=== PATIENT | male | born 1930 | race Hispanic/Latino ===

== ENCOUNTER 2018-03-17 17:16 | Inpatient (IN) | payer MEDICARE ==
--- NOTE | 2018-03-17 17:23 | C.PDOC ---
History Of Present Illness Patient [place] for evaluation of possible stroke. As per EMS, he was found with gaze deivated to right, left facial droop and left sided hemiparesis. As per EMS, last known normal was approx 8am today, when he took his grandkids to school. Time Seen by Provider: 03/17/18 17:20 History Per: EMS History/Exam Limitations: clinical condition Recent Seizure Activity Began: Hours Ago: (8am) Past Medical History Reviewed: Historical Data, Nursing Documentation, Vital Signs - Medical History PMH: Benign Prostatic Hyperplasia Other PMH: on Xarelto for "peripheral vascular disease" as per son, ? DVT Family History: States: Other Other Family History: noncontributory Review Of Systems Review Of Systems: ROS cannot be obtained secondary to pt's inabilty to answer questions. Physical Exam - Physical Exam Skin: Warm, Dry Head: Atraumatic, Normacephalic Oral Mucosa: Moist Cardiovascular: Rhythm Regular Respiratory: Normal Breath Sounds, No Rales, No Rhonchi, No Wheezing Gastrointestinal/Abdominal: Normal Exam, Bowel Sounds, Soft, No Tenderness Neurological/Psych: No Normal Speech (nonverbal), Normal Cranial Nerves (gaze deiavted to left, left sided facial droop), No Normal Motor (hemiparesis of LUE, LLE), No Normal Reflexes ((+) Babinski LLE) ED Course And Treatment - Laboratory Results Result Diagrams: 03/17/18 17:40 03/17/18 17:40 ECG: Interpreted By Me, Viewed By Me (sinus rhythm 76 bpm, left axis deviation, Q waves II, III, aVF, no acute ST changes) ECG Interpretation: Abnormal O2 Sat by Pulse Oximetry: 96 (RA) Pulse Ox Interpretation: Normal - Other Rad CTA HEAD X-Ray: Read By Radiologist Interpretation: Dictator : Russell Hogan MD. Inspector Raw Quartz : Networker : Russell Hogan MD. Approver2 : Report Date : 03/17/2018 17:36:15. My Comment : * . Date of service: 2018-03-17 17:27:26. PROCEDURE: CT Angiography of the neck and brain with contrast. HISTORY: CVA. COMPARISON: Comparison made with concurrent CT brain. TECHNIQUE: Contiguous axial images of the neck and brain were obtained from the level of the vertex of the skull to the superior mediasti num in the arteriographic phase of enhancement. Coronal and sagittal reformats or also generated. IV contrast dose: 100 cc Visipaque 320 contrast material. Radiation dose: Total exam DLP = 580.52 mGy-cm. This CT exam was performed using one or more of the following dose reduction techniques: Automated exposure control, adjustment of the mA and/or kV according to patient size, and/or use of iterative reconstruction technique. FINDINGS: The aortic arch is widely patent despite some minimal scattered partially calcified atherosclerotic plaque changes seen along the transverse portion of the aortic arch.. Some very minimal calcified plaque also seen along the origin of the left subclavian and right subclavian artery at its bifurcation into the right common carotid and right subclavian artery. There is a tiny calcified plaque in the mid left common carotid artery with mild calcified plaque at the level of the left carotid bifurcation however no no occlusion or significant narrowing. No evidence of dissection. The right common carotid artery is also widely patent as is carotid bifurcation despite small plaque changes at the level of the right carotid bifurcation. The distal internal carotid arteries including the petrous cavernous and supraclinoid segments widely patent. There is an abrupt cut off the distal aspect of the right M1 segment and distal branches consistent with thrombus in this vessel. The vertebral arteries are also widely patent throughout and are minimally asymmetric left-sided which is slightly larger in caliber/more dominant than the right. Basilar artery patent. The visualized major branches of the [id number] are otherwise intact not withstanding the right MCA thrombus. The distal of branches of the anterior and posterior cerebral arteries appear relatively symmetric. No definitive evidence of large aneurysm nor vascular malformation. OTHER FINDINGS: Enlarged heterogeneous right lobe thyroid gland with multiple small on varying sized hypodense nodules. There also appear to be 1 or 2 small nodules left lobe thyroid gland. Follow- up thyroid ultrasound recommended. IMPRESSION: There is abrupt cut off enhancement within the mid to distal right mid middle cerebral artery with no significant enhancement of distal branch vessels consistent with thrombus in this vessel. These findings were discussed with Dr. Lyon at approximately 5:45 p.m. with written down and read back verification. Enlarged heterogeneous right lobe thyroid gland with multiple small on varying sized hypodense nodules. There also appear to be 1 or 2 small nodules left lobe thyroid gland. Follow- up thyroid ultrasound recommended. - CT Scan/US ct head Other Rad Studies (CT/US): Read By Radiologist, Radiology Report Reviewed CT/US Interpretation: Accession No. : [id number]. Patient Name / ID : KING CANAS / [id number]. Exam Date : 03/17/2018 17:25:09 ( Approved ). Study Comment : Sex / Age : M / 87Y. Creator : Blank Romero. Dictator : Russell Hogan MD. Inspector Raw Quartz : Networker : Russell Hogan MD. Approver2 : Report Date : 03/17/2018 17:28:16. My Comment : . Date of service: 03/17/2018. PROCEDURE: CT HEAD WITHOUT CONTRAST. HISTORY: Code Stroke. COMPARISON: None available. TECHNIQUE: Axial computed tomography images were obtained through the head/brain without intravenous contrast. Radiation dose: Total exam DLP = 1133.64 mGy-cm. This CT exam was performed using one or more of the following dose reduction techniques: Automated exposure control, adjustment of the mA and/or kV according to patient size, and/or use of iterative reconstruction technique. FINDINGS: HEMORRHAGE: No intracranial hemorrhage. BRAIN: Apparent right-sided hyperdense MCA sign consistent with thrombus in the right middle cerebral artery. Significant diffuse/confluent chronic appearing low-attenuation changes seen extending from the periventricular into the deep and subcortical white matter both cerebral hemispheres. Findings may represent chronic sequela of small vessel disease. There also appears to be some extension of these changes into the white matter tracts of both basal nuclei. Note that the possibility of a small hyperacute infarct cannot be excluded on this study. Fairly significant central volume loss evidenced by disproportionate enlargement of the ventricles compared sulci.. No obvious parenchymal nor extra-axial masses or collections seen on this noncontrast exam. Vascular calcifications both carotid siphons. VENTRICLES: No obstructive hydrocephalus. CALVARIUM: There are no acute calvarial fractures. PARANASAL SINUSES: Unremarkable as visualized. No significant inflammatory changes. MASTOID AIR CELLS: Unremarkable as visualized. No inflammatory changes. OTHER FINDINGS: None. IMPRESSION: There is an apparent hyperdense right-sided MCA sign consistent with thrombus in the right middle cerebral artery. Significant diffuse/confluent chronic appearing low-attenuation changes seen extending from the periventricular into the deep and subcortical white matter both cerebral hemispheres. Findings may represent chronic sequela of small vessel disease. There also appears to be some extension of these changes into the white matter tracts of both basal nuclei. Note that the possibility of a small hyperacute infarct cannot be excluded on this study. Fairly significant central volume loss evidenced by disproportionate enlargement of the ventricles compared sulci.. These findings discussed with Dr. Lyon at approximately 5:35 p.m. with written down and read back verification. Progress Note: Code Stroke called. 5:40pm- Spoke with Dr. Henley, she will discuss with interventional neuro. Patient's son is at bedside now, states patient was at his baseline this morning at 8am, and then he called and spoke to him sometime between 11-12pm, and patient seemed fine. When he arrived home after 4pm, found his father not speaking and with left sided paralysis. Last known well 11am-12pm. 5:50pm- Spoke with Dr. Jolley, he is on his way for intervention. - Physician Consult Information Physician Contacted: Wild Aponte Outcome Of Conversation: Discussed patient with medicine payroll consultant, agrees with admission for acute CVA. Patient being taken to [facility] cath lab for neuro intervention. Critical Care Time - Critical Care Note Total Time (in mins): 60 Documented critical care: time excludes all time spent performing seperately billable procedures. NIHSS Stroke Scale - Date/Time Evaluation Performed Date Performed: 03/17/18 Time Performed: 17:20 When Was NIHSS Performed: Baseline - How Severe is the Stoke Level of Consciousness: 0=Alert LOC to Questions: 2=Neither correct LOC to commands: 2=Neither correct Best Gaze: 2=Forced deviation Visual: 0=No visual loss Facial: 2=Partial (lower face paralysis) Motor Arm - Left: 4=No movement Motor Arm - Right: 0=No drift Motor Leg - Left: 4=No movement Motor Leg - Right: 0=No drift Limb Ataxia: 0=Absent Sensory: 0=Normal Best Language: 3=Mute Dysarthia: 0=Normal articulation Extinction & Inattention (Neglect): 1=Partial neglect (mild charlette-attention) Score: 20 rTPA Inclusion/Exclusion - Refusal of Treatment Patient Refused Treatment: No - Inclusion Criteria for Altepase Patient is 18 years or Older: Yes The Clinical Diagnosis of Ischemic Stroke That is Causing a Potentially Disabling Neurological Deficit: Yes Time of Onset is Well Established to be Less Than 270 Minute Before Treatment Would Begin: No Risk/Benefit Discussed With Patient/Family Member Present: No Disposition - Disposition Disposition: HOSPITALIZED
--- NOTE | 2018-03-17 17:41 | CT ---
Date of service: 03/17/2018 PROCEDURE: CT HEAD WITHOUT CONTRAST. HISTORY: Code Stroke COMPARISON: None available. TECHNIQUE: Axial computed tomography images were obtained through the head/brain without intravenous contrast. Radiation dose: Total exam DLP = 1133.64 mGy-cm. This CT exam was performed using one or more of the following dose reduction techniques: Automated exposure control, adjustment of the mA and/or kV according to patient size, and/or use of iterative reconstruction technique. FINDINGS: HEMORRHAGE: No intracranial hemorrhage. BRAIN: Apparent right-sided hyperdense MCA sign consistent with thrombus in the right middle cerebral artery. Significant diffuse/confluent chronic appearing low-attenuation changes seen extending from the periventricular into the deep and subcortical white matter both cerebral hemispheres. Findings may represent chronic sequela of small vessel disease. There also appears to be some extension of these changes into the white matter tracts of both basal nuclei. Note that the possibility of a small hyperacute infarct cannot be excluded on this study. Fairly significant central volume loss evidenced by disproportionate enlargement of the ventricles compared sulci.. No obvious parenchymal nor extra-axial masses or collections seen on this noncontrast exam. Vascular calcifications both carotid siphons VENTRICLES: No obstructive hydrocephalus. CALVARIUM: There are no acute calvarial fractures. PARANASAL SINUSES: Unremarkable as visualized. No significant inflammatory changes. MASTOID AIR CELLS: Unremarkable as visualized. No inflammatory changes. OTHER FINDINGS: None. IMPRESSION: There is an apparent hyperdense right-sided MCA sign consistent with thrombus in the right middle cerebral artery. Significant diffuse/confluent chronic appearing low-attenuation changes seen extending from the periventricular into the deep and subcortical white matter both cerebral hemispheres. Findings may represent chronic sequela of small vessel disease. There also appears to be some extension of these changes into the white matter tracts of both basal nuclei. Note that the possibility of a small hyperacute infarct cannot be excluded on this study. Fairly significant central volume loss evidenced by disproportionate enlargement of the ventricles compared sulci.. These findings discussed with Dr. Lyon at approximately 5:35 p.m. with written down and read back verification.
[2018-03-17 17:45] LABS: BASO % 0.5 % (0.0-2.0); EOS % 0.7 % (0.0-4.0); HEMOGLOBIN 13.1 g/dL (12.0-18.0); LYMPH % 43.7 % (20.0-40.0); MEAN CELL VOLUME 94.7 fL (80.0-94.0); MEAN CORPUSCULAR HGB CONC 32.8 g/dL (33.0-37.0); MONO # 0.5 K/uL (0.0-0.8); MONO % 7.2 % (0.0-10.0); NEUT # 3.3 K/uL (1.8-7.0); NEUT % 47.9 % (50.0-75.0); RBC 4.23 Mil/uL (4.40-5.90); RED CELL DISTRIBUTION WIDTH 15.1 % (11.5-14.5); WHITE BLOOD COUNT 6.9 K/uL (4.8-10.8)
[2018-03-17 17:57] LABS: INR 1.3; PROTHROMBIN TIME 14.2 SECONDS (9.7-12.2)
[2018-03-17 18:02] LABS: ALB/GLOB RATIO 1.4 (1.0-2.1); ALBUMIN 3.9 g/dL (3.5-5.0); ALT/SGPT 23 U/L (21-72); AST/SGOT 25 U/L (17-59); BLOOD UREA NITROGEN 29 mg/dL (9-20); CALCIUM 9.3 mg/dl (8.6-10.4); GFR NON-AFRICAN AMERICAN > 60; HDL CHOLESTEROL 78 mg/dL (30-70)
--- NOTE | 2018-03-17 18:03 | CT ---
Date of service: 2018-03-17 17:27:26 PROCEDURE: CT Angiography of the neck and brain with contrast HISTORY: CVA COMPARISON: Comparison made with concurrent CT brain TECHNIQUE: Contiguous axial images of the neck and brain were obtained from the level of the vertex of the skull to the superior mediastinum in the arteriographic phase of enhancement. Coronal and sagittal reformats or also generated. IV contrast dose: 100 cc Visipaque 320 contrast material. Radiation dose: Total exam DLP = 580.52 mGy-cm. This CT exam was performed using one or more of the following dose reduction techniques: Automated exposure control, adjustment of the mA and/or kV according to patient size, and/or use of iterative reconstruction technique. FINDINGS: The aortic arch is widely patent despite some minimal scattered partially calcified atherosclerotic plaque changes seen along the transverse portion of the aortic arch.. Some very minimal calcified plaque also seen along the origin of the left subclavian and right subclavian artery at its bifurcation into the right common carotid and right subclavian artery. There is a tiny calcified plaque in the mid left common carotid artery with mild calcified plaque at the level of the left carotid bifurcation however no no occlusion or significant narrowing. No evidence of dissection. The right common carotid artery is also widely patent as is carotid bifurcation despite small plaque changes at the level of the right carotid bifurcation. The distal internal carotid arteries including the petrous cavernous and supraclinoid segments widely patent. There is an abrupt cut off the distal aspect of the right M1 segment and distal branches consistent with thrombus in this vessel. The vertebral arteries are also widely patent throughout and are minimally asymmetric left-sided which is slightly larger in caliber/more dominant than the right. Basilar artery patent. The visualized major branches of the [id number] are otherwise intact not withstanding the right MCA thrombus. The distal of branches of the anterior and posterior cerebral arteries appear relatively symmetric. No definitive evidence of large aneurysm nor vascular malformation. OTHER FINDINGS: Enlarged heterogeneous right lobe thyroid gland with multiple small on varying sized hypodense nodules. There also appear to be 1 or 2 small nodules left lobe thyroid gland. Follow-up thyroid ultrasound recommended. IMPRESSION: There is abrupt cut off enhancement within the mid to distal right mid middle cerebral artery with no significant enhancement of distal branch vessels consistent with thrombus in this vessel. These findings were discussed with Dr. Lyon at approximately 5:45 p.m. with written down and read back verification. Enlarged heterogeneous right lobe thyroid gland with multiple small on varying sized hypodense nodules. There also appear to be 1 or 2 small nodules left lobe thyroid gland. Follow-up thyroid ultrasound recommended.
[2018-03-17] MEDS: Sodium Chloride 0.9% 1,000 ML IV SCH (18:08)
[2018-03-17 18:14] LABS: LDL CHOLESTEROL 88 mg/dL (0-129)
[2018-03-17] MEDS ORDERED: Iodixanol 320 MG/ML 100 ML BOTTLE IV ONE (18:21)
--- NOTE | 2018-03-17 18:50 | RAD ---
Date of service: 03/17/2018 HISTORY: Code Stroke COMPARISON: No prior. FINDINGS: LUNGS: No active pulmonary disease. PLEURA: No significant pleural effusion identified, no pneumothorax apparent. CARDIOVASCULAR: No atherosclerotic calcification present Normal. OSSEOUS STRUCTURES: No significant abnormalities. VISUALIZED UPPER ABDOMEN: Normal. OTHER FINDINGS: None. IMPRESSION: No active disease.
[2018-03-17] MEDS ORDERED: Iodixanol 320 MG/ML 200 ML BOTTLE IV ONE (18:53)
--- NOTE | 2018-03-17 21:34 | CP.PCM.CON ---
History of Present Illness - History of Present Illness History of Present Illness: 87-year-old man brought in by EMS at 17:15 found to have a left charlette plegia arm and leg. According to the patient's son he was last seen normal or last known to be normal around 12 PM today. According to the grandson patient was last normal at 2 PM and then was noted to be unsteady with his gait. The patient is reported to be request. We full history is unable to be obtained from the patient is is unable to respond. Stroke code was called the patient obtained a CT/CT angiogram. I was notified that there is a right middle cerebral artery occlusion at 1737. The patient is not a TPA candidate. NIH stroke score reported at 20. Review of Systems - Review of Systems Systems not reviewed;Unavailable: Acuity of Condition, Altered Mental Status Past Patient History - Infectious Disease Hx of Infectious Diseases: None - Past Social History Smoking Status: Unknown If Ever Smoked - CARDIAC Hx Peripheral Vascular Disease: Yes - MUSCULOSKELETAL/RHEUMATOLOGICAL Hx Falls: Yes - PSYCHIATRIC Hx Substance Use: No - SURGICAL HISTORY Hx Surgeries: Yes Hx Herniorrhaphy: Yes - ANESTHESIA Hx Anesthesia: Yes Meds Allergies/Adverse Reactions: Allergies Allergy/AdvReac Type Severity Reaction Status Date / Time No Known Allergies Allergy Unverified 03/17/18 18:01 - Medications Medications: Current Medications Sodium Chloride (Sodium Chloride 0.9%) 1,000 mls @ 100 mls/hr IV .Q10H TETO Last Admin: 03/17/18 18:08 Dose: 100 mls/hr Pneumococcal Polyvalent Vaccine (Pneumovax 23 Vaccine) 0.5 ml SC .ONCE ONE Stop: 03/20/18 10:01 Physical Exam - Constitutional Appears: Combative, Agitated - Head Exam Head Exam: ATRAUMATIC, NORMAL INSPECTION - Eye Exam Eye Exam: EOMI (right gaze ), Normal appearance, Periorbital tenderness - ENT Exam ENT Exam: Normal External Ear Exam - Respiratory Exam Respiratory Exam: Clear to Auscultation Bilateral - GI/Abdominal Exam GI & Abdominal Exam: Soft - Rectal Exam Rectal Exam: Deferred - Neurological Exam Neurological exam: Altered, Motor Sensory Deficit - Expanded Neurological Exam Expanded Speech: Slurred Speech Cranial nerves: EOM's Intact: Abnormal Left, Abnormal Right (right gaze ), Facial Palsey w/Forehead Movement: Abnormal Left Cerebellar Function: Finger to Nose: Abnormal Left Neuro motor strength exam: Left Upper Extremity: 0, Right Upper Extremity: 5, Left Lower Extremity: 0, Right Lower Extremity: 5 Coma Scale Eye Opening: SPONTANEOUS Results - Vital Signs Recent Vital Signs: Last Vital Signs Temp 97.7 F 03/17/18 17:16 Pulse 75 03/17/18 17:16 Resp 20 03/17/18 17:16 BP 171/104 H 03/17/18 17:16 Pulse Ox 96 03/17/18 18:57 - Labs Result Diagrams: 03/17/18 17:40 03/17/18 17:40 Labs: Laboratory Results - last 24 hr 03/17/18 03/17/18 03/17/18 17:40 17:40 17:40 WBC 6.9 RBC 4.23 L Hgb 13.1 Hct 40.1 MCV 94.7 H MCH 31.0 MCHC 32.8 L RDW 15.1 H Plt Count 219 MPV 9.0 Neut % (Auto) 47.9 L Lymph % (Auto) 43.7 H [place] % (Auto) 7.2 Eos % (Auto) 0.7 Baso % (Auto) 0.5 Neut # (Auto) 3.3 Lymph # (Auto) 3.0 [place] # (Auto) 0.5 Eos # (Auto) 0.0 Baso # (Auto) 0.0 PT 14.2 H INR 1.3 APTT 34 Sodium 137 Potassium 4.4 Chloride 102 Carbon Dioxide 24 Anion Gap 15 BUN 29 H Creatinine 0.8 Est GFR ( Amer) > 60 Est GFR (Non-Af Amer) > 60 Random Glucose 123 H Hemoglobin A1c Calcium 9.3 Total Bilirubin 0.6 AST 25 ALT 23 Alkaline Phosphatase 68 Troponin I 0.0480 Total Protein 6.8 Albumin 3.9 Globulin 2.9 Albumin/Globulin Ratio 1.4 Triglycerides 88 Cholesterol 187 LDL Cholesterol Direct 88 HDL Cholesterol 78 H Blood Type Antibody Screen 03/17/18 03/17/18 17:40 17:54 WBC RBC Hgb Hct MCV MCH MCHC RDW Plt Count MPV Neut % (Auto) Lymph % (Auto) [place] % (Auto) Eos % (Auto) Baso % (Auto) Neut # (Auto) Lymph # (Auto) [place] # (Auto) Eos # (Auto) Baso # (Auto) PT INR APTT Sodium Potassium Chloride Carbon Dioxide Anion Gap BUN Creatinine Est GFR ( Amer) Est GFR (Non-Af Amer) Random Glucose Hemoglobin A1c 5.9 Calcium Total Bilirubin AST ALT Alkaline Phosphatase Troponin I Total Protein Albumin Globulin Albumin/Globulin Ratio Triglycerides Cholesterol LDL Cholesterol Direct HDL Cholesterol Blood Type A POSITIVE Antibody Screen Negative - Impressions Impression: The CT noncontrast of the head which was performed as 17:26 demonstrates extensive periventricular white matter change. There is a hypertensive right MCA sign. The aspect score is 9 there is mild ventricular megaly and volume loss. 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 The CT aspect scores is nine, the CTA demonstrates the right middle cerebral artery occlusion in the NIH stroke score is 20 The risks, benefits and alternatives to the procedure were discussed in detail with the patient's sons after I answered all the questions they gave written informed consent for the procedure to be performed. The patient is not A TPA candidate - Date & Time Date: 03/17/18 Time: 18:03
--- NOTE | 2018-03-17 21:51 | PCM.OP ---
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 Néstor Jolley CO-SURGEON: CONSENT: Informed consent was obtained for the procedure from the and son after discussing the potential risks and benefits of the procedure. Potential risks such as vascular injury, vascular occlusion, further stroke, intracranial hemorrhage and even were discussed. After I answered all their questions they gave their informed consent. ANESTHESIA: MONITORED ANESTHESIA CARE INTRODUCTION: After the patient was placed under anesthesia, both groins were prepped and draped in the usual sterile fashion. A timeout procedure was documented, the patient's name date of and medical record number as well as the procedures to be performed was confirmed by the entire team, after everyone in the room agreed, the procedure continued. Using sterile Seldinger technique the right common femoral artery was punctured using a micro puncture needle. Over a 0.18 mm wire a 5 Mosotho sheath was introduced into the artery and then hooked up to a continuous heparinized flush system. Via the sheath a 5 Mosotho Mercado Catheter was introduced over a 0.35 Terumo glide wire, into the double aorta the catheter was than double flushed and subsequently hooked up to a separate continuous heparinized flush system. The following vessels were than sequentially selected. Digital angiographic acquisitions were than obtained: VESSELS SELECTED: The right common carotid artery was selected cervical views were obtained. The right internal carotid artery was selected intracranial views were obtained. DIAGNOSTIC IMAGING FINDINGS: Injection of the right common carotid artery with cervical views demonstrates a normal appearance to the external carotid artery and does branches. Theres no significant stenosis. There is mild ectasia /tortuosity of the cervical common carotid artery. Injection of the right internal carotid artery with intracranial demonstrates there is antegrade flow filling of the proximal M1 segment of the middle cerebral artery there is an abrupt occlusion of the mid M1 segment middle cerebral artery. There is moderate collateralization of the right middle cerebral artery via LEROY to MCA pial collaterals there are no significant intracranial or extracranial stenoses Intervention: through the diagnostic catheter a exchange length Gottlieb wire was advanced into the internal carotid artery and then subsequently the diagnostic catheter and sheath was removed [id number]. Then a neuron max 0.88 guide sheath was advanced over the Gottlieb wire into the internal carotid artery. Based on the size of the occluded artery a 068 penumbra bala aspiration catheter together with a synchro two guide wire was advanced into the internal carotid artery the branch that was occluded was successfully catheterized and the and aspiration catheter was advanced into the face the clot using Adapt technique. The aspiration catheter was slowly removed with suction applied to both the aspiration catheter and the guide catheter. A repeat angiography at this point demonstrates complete reopening of the middle cerebral artery without evidence of vasospasm or distal embolic occlusion. This is consistent with the TICI three revascularization. Follow-up diagnostic imaging in the AP lateral views were obtained to ensure that there is no significant distal emboli which were not of seen. The neuron max was removed and replaced over wire for diagnostic catheter over further diagnostic angiographies performed. The following vessels for selective injected. Vessels selected: The left common carotid artery was selected cervical views were obtained. Left internal carotid artery was selected intracranial views were obtained. Left subclavian was selected vertebral artery views were obtained. Due to tortuosity of the vertebral artery note catheterization vertebral artery was performed. Diagnostic imaging findings: There is normal visualization of left common carotid artery in his branches no significant arterial stenosis or atherosclerotic debris is noted. Injection of left internal carotid artery with the views demonstrates normal filling of the anterior and middle cerebral artery with evidence of stenosis or occlusion. No arterial aneurysm noted. Injection of left subclavian with views of the vertebral artery demonstrates moderate tortuosity of the origin of vertebral artery. No significant arterial stenosis is noted, however. A decision was made not to catheterize left vertebral artery due to tortuosity. The diagnostic catheter and sheath were removed and compression over the right common femoral artery until hemostasis was obtained. IMPRESSION: SUCCESSFUL THROMBECTOMY OF THE RIGHT MIDDLE CEREBRAL ARTERY. TIC I THREE REVASCULARIZATION OBTAINED WITH A SINGLE PASS OF THE 068 PENUMBRA BALA ASPIRATION CATHETER If you have any questions regarding this procedure or regarding the patient, please do not hesitate to contact me at [phone] Sincerely, Nétsor Jolley MD. [facility] Procedure/Operation Description: Cerebral Angiogram and Thrombectomy Right Middle Cerebral Artery Estimated Blood Loss: 50 ml Complications: none Discharge & Condition: Guarded
--- NOTE | 2018-03-17 23:04 | CP.PCM.CON ---
History of Present Illness - History of Present Illness History of Present Illness: Chief complain: Code stroke HPI: 87-year-old male brought in by ambulance with a history of acute stroke happened prior to the hospitalization. Patient was found with eyes deviating to the right side with a left facial droop and left-sided weakness. In the emergency room code stroke was called. Patient had a CAT scan of the head. Following that patient was transferred to agriculture laborer, and the patient underwent evaluation, and also right MCA thrombectomy. Post thrombectomy patient had a circulation to the M1 segment of MCA. Patient postoperative transferred to ICU. Now patient is confused. Left facial droop. Weakness in the left side noted. But patient is awake and responding. Confused at times. Agitated. Past medical history: BPH Medications questionable peripheral vascular disease, DVT. Surgical history none Allergies no known drug allergies Family history noncontributory On examination: Patient is currently on bed lying down. Right groin in dressing noted. Moving the right side. Left-sided weakness noted. Answering questions. But confused. Labs reviewed Nonspecific CAT scan of the head showing evidence of ischemic CVA. Assessment: Patient is 87-year-old male admitted with acute ischemic CVA. Status post thrombectomy. Revascularization. We'll closely monitor neurologically now. Repeat CAT scan tomorrow. DVT GI prophylaxis. Speech evaluation physical therapy. Spoke to the neuro interventional radiology. Will follow-up the patient Past Patient History - Infectious Disease Hx of Infectious Diseases: None - Past Medical History & Family History Past Medical History?: Yes - Past Social History Smoking Status: Unknown If Ever Smoked - CARDIAC Hx Peripheral Vascular Disease: Yes - PULMONARY Hx Respiratory Disorders: No - NEUROLOGICAL Hx Neurological Disorder: No - HEENT Hx HEENT Problems: Yes Other/Comment: hard of hearing both ears - RENAL Hx Chronic Kidney Disease: No - ENDOCRINE/METABOLIC Hx Endocrine Disorders: No - HEMATOLOGICAL/ONCOLOGICAL Hx Blood Disorders: No - INTEGUMENTARY Hx Dermatological Problems: No - MUSCULOSKELETAL/RHEUMATOLOGICAL Hx Falls: Yes - GASTROINTESTINAL Hx Gastrointestinal Disorders: No - GENITOURINARY/GYNECOLOGICAL Hx Genitourinary Disorders: Yes Hx Prostate Problems: Yes Other/Comment: BPH - PSYCHIATRIC Hx Substance Use: No - SURGICAL HISTORY Hx Surgeries: Yes Hx Herniorrhaphy: Yes - ANESTHESIA Hx Anesthesia: Yes Meds Allergies/Adverse Reactions: Allergies Allergy/AdvReac Type Severity Reaction Status Date / Time No Known Allergies Allergy Unverified 03/17/18 18:01 - Medications Medications: Current Medications Heparin Sodium (Porcine) (Heparin) 5,000 units SC Q12 [facility] Sodium Chloride (Sodium Chloride 0.9%) 1,000 mls @ 100 mls/hr IV .Q10H TETO Last Admin: 03/17/18 18:08 Dose: 100 mls/hr Pantoprazole Sodium (Protonix Inj) 40 mg IVP DAILY [facility] Pneumococcal Polyvalent Vaccine (Pneumovax 23 Vaccine) 0.5 ml SC .ONCE ONE Stop: 03/20/18 10:01 Results - Vital Signs Recent Vital Signs: Last Vital Signs Temp 97.7 F 03/17/18 17:16 Pulse 58 L 03/17/18 22:45 Resp 18 03/17/18 22:45 BP 142/78 03/17/18 22:45 Pulse Ox 99 03/17/18 22:45 - Labs Result Diagrams: 03/17/18 17:40 03/17/18 17:40 Labs: Laboratory Results - last 24 hr 03/17/18 03/17/18 03/17/18 17:40 17:40 17:40 WBC 6.9 RBC 4.23 L Hgb 13.1 Hct 40.1 MCV 94.7 H MCH 31.0 MCHC 32.8 L RDW 15.1 H Plt Count 219 MPV 9.0 Neut % (Auto) 47.9 L Lymph % (Auto) 43.7 H [place] % (Auto) 7.2 Eos % (Auto) 0.7 Baso % (Auto) 0.5 Neut # (Auto) 3.3 Lymph # (Auto) 3.0 [place] # (Auto) 0.5 Eos # (Auto) 0.0 Baso # (Auto) 0.0 PT 14.2 H INR 1.3 APTT 34 Sodium 137 Potassium 4.4 Chloride 102 Carbon Dioxide 24 Anion Gap 15 BUN 29 H Creatinine 0.8 Est GFR ( Amer) > 60 Est GFR (Non-Af Amer) > 60 Random Glucose 123 H Hemoglobin A1c Calcium 9.3 Total Bilirubin 0.6 AST 25 ALT 23 Alkaline Phosphatase 68 Troponin I 0.0480 Total Protein 6.8 Albumin 3.9 Globulin 2.9 Albumin/Globulin Ratio 1.4 Triglycerides 88 Cholesterol 187 LDL Cholesterol Direct 88 HDL Cholesterol 78 H Blood Type Antibody Screen 03/17/18 03/17/18 17:40 17:54 WBC RBC Hgb Hct MCV MCH MCHC RDW Plt Count MPV Neut % (Auto) Lymph % (Auto) [place] % (Auto) Eos % (Auto) Baso % (Auto) Neut # (Auto) Lymph # (Auto) [place] # (Auto) Eos # (Auto) Baso # (Auto) PT INR APTT Sodium Potassium Chloride Carbon Dioxide Anion Gap BUN Creatinine Est GFR ( Amer) Est GFR (Non-Af Amer) Random Glucose Hemoglobin A1c 5.9 Calcium Total Bilirubin AST ALT Alkaline Phosphatase Troponin I Total Protein Albumin Globulin Albumin/Globulin Ratio Triglycerides Cholesterol LDL Cholesterol Direct HDL Cholesterol Blood Type A POSITIVE Antibody Screen Negative
--- NOTE | 2018-03-17 23:53 | CP.PCM.HP ---
Past Patient History - Infectious Disease Hx of Infectious Diseases: None - Past Medical History & Family History Past Medical History?: Yes - Past Social History Smoking Status: Unknown If Ever Smoked - CARDIAC Hx Peripheral Vascular Disease: Yes - PULMONARY Hx Respiratory Disorders: No - NEUROLOGICAL Hx Neurological Disorder: No - HEENT Hx HEENT Problems: Yes Other/Comment: hard of hearing both ears - RENAL Hx Chronic Kidney Disease: No - ENDOCRINE/METABOLIC Hx Endocrine Disorders: No - HEMATOLOGICAL/ONCOLOGICAL Hx Blood Disorders: No - INTEGUMENTARY Hx Dermatological Problems: No - MUSCULOSKELETAL/RHEUMATOLOGICAL Hx Falls: Yes - GASTROINTESTINAL Hx Gastrointestinal Disorders: No - GENITOURINARY/GYNECOLOGICAL Hx Genitourinary Disorders: Yes Hx Prostate Problems: Yes Other/Comment: BPH - PSYCHIATRIC Hx Substance Use: No - SURGICAL HISTORY Hx Surgeries: Yes Hx Herniorrhaphy: Yes - ANESTHESIA Hx Anesthesia: Yes Meds Allergies/Adverse Reactions: Allergies Allergy/AdvReac Type Severity Reaction Status Date / Time No Known Allergies Allergy Unverified 03/17/18 18:01 Results - Vital Signs Recent Vital Signs: Last Vital Signs Temp 97.7 F 03/17/18 17:16 Pulse 58 L 03/17/18 22:45 Resp 18 03/17/18 22:45 BP 142/78 03/17/18 22:45 Pulse Ox 99 03/17/18 22:45 - Labs Result Diagrams: 03/17/18 17:40 03/17/18 17:40 Labs: Laboratory Results - last 24 hr 03/17/18 03/17/18 03/17/18 17:40 17:40 17:40 WBC 6.9 RBC 4.23 L Hgb 13.1 Hct 40.1 MCV 94.7 H MCH 31.0 MCHC 32.8 L RDW 15.1 H Plt Count 219 MPV 9.0 Neut % (Auto) 47.9 L Lymph % (Auto) 43.7 H [place] % (Auto) 7.2 Eos % (Auto) 0.7 Baso % (Auto) 0.5 Neut # (Auto) 3.3 Lymph # (Auto) 3.0 [place] # (Auto) 0.5 Eos # (Auto) 0.0 Baso # (Auto) 0.0 PT 14.2 H INR 1.3 APTT 34 Sodium 137 Potassium 4.4 Chloride 102 Carbon Dioxide 24 Anion Gap 15 BUN 29 H Creatinine 0.8 Est GFR ( Amer) > 60 Est GFR (Non-Af Amer) > 60 POC Glucose (mg/dL) Random Glucose 123 H Hemoglobin A1c Calcium 9.3 Total Bilirubin 0.6 AST 25 ALT 23 Alkaline Phosphatase 68 Troponin I 0.0480 Total Protein 6.8 Albumin 3.9 Globulin 2.9 Albumin/Globulin Ratio 1.4 Triglycerides 88 Cholesterol 187 LDL Cholesterol Direct 88 HDL Cholesterol 78 H Blood Type Antibody Screen 03/17/18 03/17/18 03/17/18 17:40 17:54 23:35 WBC RBC Hgb Hct MCV MCH MCHC RDW Plt Count MPV Neut % (Auto) Lymph % (Auto) [place] % (Auto) Eos % (Auto) Baso % (Auto) Neut # (Auto) Lymph # (Auto) [place] # (Auto) Eos # (Auto) Baso # (Auto) PT INR APTT Sodium Potassium Chloride Carbon Dioxide Anion Gap BUN Creatinine Est GFR ( Amer) Est GFR (Non-Af Amer) POC Glucose (mg/dL) 113 H Random Glucose Hemoglobin A1c 5.9 Calcium Total Bilirubin AST ALT Alkaline Phosphatase Troponin I Total Protein Albumin Globulin Albumin/Globulin Ratio Triglycerides Cholesterol LDL Cholesterol Direct HDL Cholesterol Blood Type A POSITIVE Antibody Screen Negative
[2018-03-18 05:54] LABS: BASO % 0.2 % (0.0-2.0); EOS # 0.1 K/uL (0.0-0.7); EOS % 1.3 % (0.0-4.0); HEMOGLOBIN 11.7 g/dL (12.0-18.0); LYMPH # 1.8 K/uL (1.0-4.3); LYMPH % 29.4 % (20.0-40.0); MEAN CELL VOLUME 95.5 fL (80.0-94.0); MEAN CORPUSCULAR HEMOGLOBIN 31.5 pg (27.0-31.0); MONO # 0.6 K/uL (0.0-0.8); MONO % 9.9 % (0.0-10.0); NEUT # 3.7 K/uL (1.8-7.0); NEUT % 59.2 % (50.0-75.0); RBC 3.7 Mil/uL (4.40-5.90); RED CELL DISTRIBUTION WIDTH 15.1 % (11.5-14.5); WHITE BLOOD COUNT 6.3 K/uL (4.8-10.8)
[2018-03-18] MEDS: Sodium Chloride 0.9% 1,000 ML IV SCH ×2 (06:00→10:12)
--- NOTE | 2018-03-18 06:07 | HP ---
CHIEF COMPLAINT: Dysphasia and weakness. HISTORY OF PRESENT ILLNESS: This is an 87-year-old male with history of DVT with inferior vena caval filter, and he is taking anticoagulation. He was seen this morning around 8 a.m. by the son, and at that time he was okay, till noon time he was fine and later on, according to the MD, he had unsteady gait, he was found to be aphasic, and his face twisted to right side. The patient has difficulty moving his extremities, and he is brought into the emergency room. I saw the patient in the ER after a code stroke was called on the bedside, and I spoke to another son over the phone. They do not have much detail about his condition. The patient was transferred to interventional cardiology department, and no further details are obtainable. There is no history of seizure, fall, or loss of consciousness. There is no history of head injury. There is no history of nausea, vomiting or diarrhea. There is no history of polyuria, polydipsia, or polyphagia. The patient also has undergone right middle cerebral artery thrombectomy by the interventional vascular surgeons, and now the patient is transferred to the ICU. His gaze is more towards the right side. No further details are obtainable at this point. PAST MEDICAL HISTORY: Benign prostatic hyperplasia, DVT. PAST SURGICAL HISTORY: Positive for inferior vena cava filter insertion by Dr. Peterson. CURRENT MEDICATIONS: The patient is on Flomax, and the patient is on Xarelto 20 mg daily. SOCIAL HISTORY: Nonsmoker, non-EtOH user. PHYSICAL EXAMINATION: GENERAL: An elderly male who is weak and is lethargic. When I saw him in the ER, he was lying down left side, and there was a right-sided facial . HEENT: Atraumatic and normocephalic. Negative pallor. Negative jaundice. NECK: Supple. Flat neck vein. No JVD. Oral cavity: Unable to examine due to lack of cooperation. The patient does not have any thyromegaly. I am unable to check the carotid bruit. CHEST WALL: Bilateral symmetrical expansion. No tenderness. No deformity. No masses. LUNGS: Bilaterally clear. No rales. No rhonchi. CARDIOVASCULAR SYSTEM: S1 and S2 regular. Unable to palpate cardiac apex. ABDOMEN: Soft. Nontender. Bowel sounds are positive. RECTAL: Enlarged prostate. EXTREMITIES: No clubbing, cyanosis or edema. NEUROLOGIC: The patient is lethargic, aphasic and lying down. Deep tendon reflexes are diminished bilaterally. The patient is aphasic. ASSESSMENT: 1. Cerebrovascular accident with right middle cerebral artery thrombus. 2. Benign prostatic hyperplasia. 3. Hypertension. 4. Obstructive uropathy. PLAN: Admit. Postop. Monitor the patient. Wild Aponte MD
[2018-03-18 06:26] LABS: ALB/GLOB RATIO 1.2 (1.0-2.1); ALBUMIN 3.2 g/dL (3.5-5.0); ALT/SGPT 18 U/L (21-72); AST/SGOT 24 U/L (17-59); BLOOD UREA NITROGEN 20 mg/dL (9-20); CALCIUM 8.5 mg/dl (8.6-10.4); GFR NON-AFRICAN AMERICAN > 60
--- NOTE | 2018-03-18 13:50 | CT ---
Date of service: 03/18/2018 PROCEDURE: CT HEAD WITHOUT CONTRAST. HISTORY: Status post thrombectomy. COMPARISON: Comparison made with prior CT scan and CTA brain both dated 03/17/2018. TECHNIQUE: Axial computed tomography images were obtained through the head/brain without intravenous contrast. Radiation dose: Total exam DLP = 2123.1 mGy-cm. This CT exam was performed using one or more of the following dose reduction techniques: Automated exposure control, adjustment of the mA and/or kV according to patient size, and/or use of iterative reconstruction technique. FINDINGS: HEMORRHAGE: Vague acute infarct changes are seen in the right basal ganglia with mild mass-effect that results in compression of the right frontal horn and anterior body of the right lateral ventricle. There is less dense appearance of the right middle cerebral artery which was seen to better advantage on prior CT scan. No definitive evidence of acute intracranial hemorrhage seen at this time. BRAIN: Extensive and severe diffuse/confluent chronic periventricular white matter ischemic changes extending peripherally into the deep and subcortical white matter both cerebral hemispheres again noted. There is also extension of these changes into the white matter tracts of both basal nuclei, not withstanding the aforementioned more discrete infarct changes right basal ganglia. Moderate to fairly significant central volume loss evidenced by disproportionate enlargement of the ventricles compared sulci not withstanding aforementioned mass-effect ventricle on the right lateral ventricle as above. VENTRICLES: As above. No obstructive hydrocephalus. CALVARIUM: Calvarium intact PARANASAL SINUSES: Unremarkable as visualized. No significant inflammatory changes. MASTOID AIR CELLS: Unremarkable as visualized. No inflammatory changes. OTHER FINDINGS: None. IMPRESSION: There are acute infarct changes seen in the right basal ganglia with mild mass-effect that result in compression of the right frontal horn and anterior body of the right lateral ventricle. No definitive evidence of acute hemorrhage seen at this time. Apparent resolution previously noted dense right MCA sign. Extensive and severe diffuse/confluent chronic white matter ischemic changes with extension into the white matter tracts of both basal ganglia. Moderate to fairly significant central volume loss not withstanding mass-effect on the right lateral ventricle as above.
--- NOTE | 2018-03-18 15:14 | CP.CCUPN ---
CCU Subjective - Physician Review Events Since Last Encounter (Free Text): 03/18/18 15:11 alert and following commands, left sided weakness improved. CCU Objective - Vital Signs / Intake & Output Vital Signs (Last 4 hours): Vital Signs Temp Pulse Resp BP Pulse Ox 03/18/18 14:00 62 22 133/79 96 03/18/18 13:00 55 L 15 132/69 97 03/18/18 12:00 99.9 F H 63 13 134/78 98 Intake and Output (Last 8hrs): Intake & Output 03/18/18 03/18/18 03/18/18 06:59 14:59 22:59 Intake Total 800 550 Output Total 1100 700 Balance -300 -150 Weight 161 lb 5 oz Intake: Intake, IV Amount 800 550 Left Forearm 800 550 Output: Urine 1100 700 Condom 1100 700 - Physical Exam Head: Positive for: Atraumatic, Normocephalic Pupils: Positive for: PERRL Extroacular Muscles: Positive for: EOMI Conjunctiva: Positive for: Normal Mouth: Positive for: Moist Mucous Membranes Pharnyx: Positive for: Normal Neck: Positive for: Normal Range of Motion Respiratory/Chest: Positive for: Clear to Auscultation, Good Air Exchange Cardiovascular: Positive for: Regular Rate and Rhythm, Murmurs Abdomen: Positive for: Normal Bowel Sounds. Negative for: Tenderness, Distention Upper Extremity: Positive for: Normal Inspection Lower Extremity: Positive for: Other (PVD, ecchymosis) Neurological: Positive for: Other (left facial droop. 4/5 LUE, 4/5 LLE) Psychiatric: Positive for: Alert - Medications Active Medications: Active Medications Generic Name Dose Route Start Last Admin Trade Name Freq PRN Reason Stop Dose Admin Heparin Sodium (Porcine) 5,000 units 03/18/18 22:00 Heparin SC Q12 TETO Sodium Chloride 1,000 mls @ 50 mls/hr 03/18/18 08:22 03/18/18 10:12 Sodium Chloride 0.9% IV 50 mls/hr .Q20H TETO Administration Pantoprazole Sodium 40 mg 03/18/18 10:00 03/18/18 10:13 Protonix Inj IVP 40 mg DAILY TETO Administration Pneumococcal Polyvalent Vaccine 0.5 ml 03/20/18 10:00 Pneumovax 23 Vaccine SC 03/20/18 10:01 .ONCE ONE - Patient Studies Lab Studies: Lab Studies 03/18/18 03/18/18 03/18/18 Range/Units 05:48 05:48 05:41 WBC 6.3 (4.8-10.8) K/uL RBC 3.70 L (4.40-5.90) Mil/uL Hgb 11.7 L (12.0-18.0) g/dL Hct 35.4 (35.0-51.0) % MCV 95.5 H (80.0-94.0) fL MCH 31.5 H (27.0-31.0) pg MCHC 33.0 (33.0-37.0) g/dL RDW 15.1 H (11.5-14.5) % Plt Count 188 (130-400) K/uL MPV 9.0 (7.2-11.7) fL Neut % (Auto) 59.2 (50.0-75.0) % Lymph % (Auto) 29.4 (20.0-40.0) % [place] % (Auto) 9.9 (0.0-10.0) % Eos % (Auto) 1.3 (0.0-4.0) % Baso % (Auto) 0.2 (0.0-2.0) % Neut # (Auto) 3.7 (1.8-7.0) K/uL Lymph # (Auto) 1.8 (1.0-4.3) K/uL [place] # (Auto) 0.6 (0.0-0.8) K/uL Eos # (Auto) 0.1 (0.0-0.7) K/uL Baso # (Auto) 0.0 (0.0-0.2) K/uL PT (9.7-12.2) SECONDS INR APTT 30 (21-34) SECONDS Sodium 139 (132-148) mmol/L Potassium 3.7 (3.6-5.2) mmol/L Chloride 107 (98-107) mmol/L Carbon Dioxide 25 (22-30) mmol/L Anion Gap 10 (10-20) BUN 20 (9-20) mg/dL Creatinine 0.6 L (0.8-1.5) mg/dL Est GFR ( Amer) > 60 Est GFR (Non-Af Amer) > 60 POC Glucose (mg/dL) (65-110) mg/dL Random Glucose 87 (75-110) mg/dL Hemoglobin A1c (4.2-6.5) % Calcium 8.5 L (8.6-10.4) mg/dl Phosphorus 2.8 (2.5-4.5) mg/dL Magnesium 2.0 (1.6-2.3) mg/dL Total Bilirubin 0.8 (0.2-1.3) mg/dL AST 24 (17-59) U/L ALT 18 L D (21-72) U/L Alkaline Phosphatase 64 (38-126) U/L Troponin I (0.00-0.120) ng/mL Total Protein 5.8 L (6.3-8.3) g/dL Albumin 3.2 L (3.5-5.0) g/dL Globulin 2.6 (2.2-3.9) gm/dL Albumin/Globulin Ratio 1.2 (1.0-2.1) Triglycerides (0-149) mg/dL Cholesterol (0-199) mg/dL LDL Cholesterol Direct (0-129) mg/dL HDL Cholesterol (30-70) mg/dL Blood Type Antibody Screen 03/18/18 03/17/18 03/17/18 Range/Units 04:48 23:35 17:54 WBC (4.8-10.8) K/uL RBC (4.40-5.90) Mil/uL Hgb (12.0-18.0) g/dL Hct (35.0-51.0) % MCV (80.0-94.0) fL MCH (27.0-31.0) pg MCHC (33.0-37.0) g/dL RDW (11.5-14.5) % Plt Count (130-400) K/uL MPV (7.2-11.7) fL Neut % (Auto) (50.0-75.0) % Lymph % (Auto) (20.0-40.0) % [place] % (Auto) (0.0-10.0) % Eos % (Auto) (0.0-4.0) % Baso % (Auto) (0.0-2.0) % Neut # (Auto) (1.8-7.0) K/uL Lymph # (Auto) (1.0-4.3) K/uL [place] # (Auto) (0.0-0.8) K/uL Eos # (Auto) (0.0-0.7) K/uL Baso # (Auto) (0.0-0.2) K/uL PT (9.7-12.2) SECONDS INR APTT (21-34) SECONDS Sodium (132-148) mmol/L Potassium (3.6-5.2) mmol/L Chloride (98-107) mmol/L Carbon Dioxide (22-30) mmol/L Anion Gap (10-20) BUN (9-20) mg/dL Creatinine (0.8-1.5) mg/dL Est GFR ( Amer) Est GFR (Non-Af Amer) POC Glucose (mg/dL) 88 113 H (65-110) mg/dL Random Glucose (75-110) mg/dL Hemoglobin A1c (4.2-6.5) % Calcium (8.6-10.4) mg/dl Phosphorus (2.5-4.5) mg/dL Magnesium (1.6-2.3) mg/dL Total Bilirubin (0.2-1.3) mg/dL AST (17-59) U/L ALT (21-72) U/L Alkaline Phosphatase (38-126) U/L Troponin I (0.00-0.120) ng/mL Total Protein (6.3-8.3) g/dL Albumin (3.5-5.0) g/dL Globulin (2.2-3.9) gm/dL Albumin/Globulin Ratio (1.0-2.1) Triglycerides (0-149) mg/dL Cholesterol (0-199) mg/dL LDL Cholesterol Direct (0-129) mg/dL HDL Cholesterol (30-70) mg/dL Blood Type A POSITIVE Antibody Screen Negative 03/17/18 03/17/18 03/17/18 Range/Units 17:40 17:40 17:40 WBC (4.8-10.8) K/uL RBC (4.40-5.90) Mil/uL Hgb (12.0-18.0) g/dL Hct (35.0-51.0) % MCV (80.0-94.0) fL MCH (27.0-31.0) pg MCHC (33.0-37.0) g/dL RDW (11.5-14.5) % Plt Count (130-400) K/uL MPV (7.2-11.7) fL Neut % (Auto) (50.0-75.0) % Lymph % (Auto) (20.0-40.0) % [place] % (Auto) (0.0-10.0) % Eos % (Auto) (0.0-4.0) % Baso % (Auto) (0.0-2.0) % Neut # (Auto) (1.8-7.0) K/uL Lymph # (Auto) (1.0-4.3) K/uL [place] # (Auto) (0.0-0.8) K/uL Eos # (Auto) (0.0-0.7) K/uL Baso # (Auto) (0.0-0.2) K/uL PT 14.2 H (9.7-12.2) SECONDS INR 1.3 APTT 34 (21-34) SECONDS Sodium 137 (132-148) mmol/L Potassium 4.4 (3.6-5.2) mmol/L Chloride 102 (98-107) mmol/L Carbon Dioxide 24 (22-30) mmol/L Anion Gap 15 (10-20) BUN 29 H (9-20) mg/dL Creatinine 0.8 (0.8-1.5) mg/dL Est GFR ( Amer) > 60 Est GFR (Non-Af Amer) > 60 POC Glucose (mg/dL) (65-110) mg/dL Random Glucose 123 H (75-110) mg/dL Hemoglobin A1c 5.9 (4.2-6.5) % Calcium 9.3 (8.6-10.4) mg/dl Phosphorus (2.5-4.5) mg/dL Magnesium (1.6-2.3) mg/dL Total Bilirubin 0.6 (0.2-1.3) mg/dL AST 25 (17-59) U/L ALT 23 (21-72) U/L Alkaline Phosphatase 68 (38-126) U/L Troponin I 0.0480 (0.00-0.120) ng/mL Total Protein 6.8 (6.3-8.3) g/dL Albumin 3.9 (3.5-5.0) g/dL Globulin 2.9 (2.2-3.9) gm/dL Albumin/Globulin Ratio 1.4 (1.0-2.1) Triglycerides 88 (0-149) mg/dL Cholesterol 187 (0-199) mg/dL LDL Cholesterol Direct 88 (0-129) mg/dL HDL Cholesterol 78 H (30-70) mg/dL Blood Type Antibody Screen 03/17/18 Range/Units 17:40 WBC 6.9 (4.8-10.8) K/uL RBC 4.23 L (4.40-5.90) Mil/uL Hgb 13.1 (12.0-18.0) g/dL Hct 40.1 (35.0-51.0) % MCV 94.7 H (80.0-94.0) fL MCH 31.0 (27.0-31.0) pg MCHC 32.8 L (33.0-37.0) g/dL RDW 15.1 H (11.5-14.5) % Plt Count 219 (130-400) K/uL MPV 9.0 (7.2-11.7) fL Neut % (Auto) 47.9 L (50.0-75.0) % Lymph % (Auto) 43.7 H (20.0-40.0) % [place] % (Auto) 7.2 (0.0-10.0) % Eos % (Auto) 0.7 (0.0-4.0) % Baso % (Auto) 0.5 (0.0-2.0) % Neut # (Auto) 3.3 (1.8-7.0) K/uL Lymph # (Auto) 3.0 (1.0-4.3) K/uL [place] # (Auto) 0.5 (0.0-0.8) K/uL Eos # (Auto) 0.0 (0.0-0.7) K/uL Baso # (Auto) 0.0 (0.0-0.2) K/uL PT (9.7-12.2) SECONDS INR APTT (21-34) SECONDS Sodium (132-148) mmol/L Potassium (3.6-5.2) mmol/L Chloride (98-107) mmol/L Carbon Dioxide (22-30) mmol/L Anion Gap (10-20) BUN (9-20) mg/dL Creatinine (0.8-1.5) mg/dL Est GFR ( Amer) Est GFR (Non-Af Amer) POC Glucose (mg/dL) (65-110) mg/dL Random Glucose (75-110) mg/dL Hemoglobin A1c (4.2-6.5) % Calcium (8.6-10.4) mg/dl Phosphorus (2.5-4.5) mg/dL Magnesium (1.6-2.3) mg/dL Total Bilirubin (0.2-1.3) mg/dL AST (17-59) U/L ALT (21-72) U/L Alkaline Phosphatase (38-126) U/L Troponin I (0.00-0.120) ng/mL Total Protein (6.3-8.3) g/dL Albumin (3.5-5.0) g/dL Globulin (2.2-3.9) gm/dL Albumin/Globulin Ratio (1.0-2.1) Triglycerides (0-149) mg/dL Cholesterol (0-199) mg/dL LDL Cholesterol Direct (0-129) mg/dL HDL Cholesterol (30-70) mg/dL Blood Type Antibody Screen Laboratory Results - last 24 hr 03/17/18 03/17/18 03/17/18 17:40 17:40 17:40 WBC 6.9 RBC 4.23 L Hgb 13.1 Hct 40.1 MCV 94.7 H MCH 31.0 MCHC 32.8 L RDW 15.1 H Plt Count 219 MPV 9.0 Neut % (Auto) 47.9 L Lymph % (Auto) 43.7 H [place] % (Auto) 7.2 Eos % (Auto) 0.7 Baso % (Auto) 0.5 Neut # (Auto) 3.3 Lymph # (Auto) 3.0 [place] # (Auto) 0.5 Eos # (Auto) 0.0 Baso # (Auto) 0.0 PT 14.2 H INR 1.3 APTT 34 Sodium 137 Potassium 4.4 Chloride 102 Carbon Dioxide 24 Anion Gap 15 BUN 29 H Creatinine 0.8 Est GFR ( Amer) > 60 Est GFR (Non-Af Amer) > 60 POC Glucose (mg/dL) Random Glucose 123 H Hemoglobin A1c Calcium 9.3 Phosphorus Magnesium Total Bilirubin 0.6 AST 25 ALT 23 Alkaline Phosphatase 68 Troponin I 0.0480 Total Protein 6.8 Albumin 3.9 Globulin 2.9 Albumin/Globulin Ratio 1.4 Triglycerides 88 Cholesterol 187 LDL Cholesterol Direct 88 HDL Cholesterol 78 H Blood Type Antibody Screen 03/17/18 03/17/18 03/17/18 17:40 17:54 23:35 WBC RBC Hgb Hct MCV MCH MCHC RDW Plt Count MPV Neut % (Auto) Lymph % (Auto) [place] % (Auto) Eos % (Auto) Baso % (Auto) Neut # (Auto) Lymph # (Auto) [place] # (Auto) Eos # (Auto) Baso # (Auto) PT INR APTT Sodium Potassium Chloride Carbon Dioxide Anion Gap BUN Creatinine Est GFR ( Amer) Est GFR (Non-Af Amer) POC Glucose (mg/dL) 113 H Random Glucose Hemoglobin A1c 5.9 Calcium Phosphorus Magnesium Total Bilirubin AST ALT Alkaline Phosphatase Troponin I Total Protein Albumin Globulin Albumin/Globulin Ratio Triglycerides Cholesterol LDL Cholesterol Direct HDL Cholesterol Blood Type A POSITIVE Antibody Screen Negative 03/18/18 03/18/18 03/18/18 04:48 05:41 05:48 WBC 6.3 RBC 3.70 L Hgb 11.7 L Hct 35.4 MCV 95.5 H MCH 31.5 H MCHC 33.0 RDW 15.1 H Plt Count 188 MPV 9.0 Neut % (Auto) 59.2 Lymph % (Auto) 29.4 [place] % (Auto) 9.9 Eos % (Auto) 1.3 Baso % (Auto) 0.2 Neut # (Auto) 3.7 Lymph # (Auto) 1.8 [place] # (Auto) 0.6 Eos # (Auto) 0.1 Baso # (Auto) 0.0 PT INR APTT Sodium 139 Potassium 3.7 Chloride 107 Carbon Dioxide 25 Anion Gap 10 BUN 20 Creatinine 0.6 L Est GFR ( Amer) > 60 Est GFR (Non-Af Amer) > 60 POC Glucose (mg/dL) 88 Random Glucose 87 Hemoglobin A1c Calcium 8.5 L Phosphorus 2.8 Magnesium 2.0 Total Bilirubin 0.8 AST 24 ALT 18 L D Alkaline Phosphatase 64 Troponin I Total Protein 5.8 L Albumin 3.2 L Globulin 2.6 Albumin/Globulin Ratio 1.2 Triglycerides Cholesterol LDL Cholesterol Direct HDL Cholesterol Blood Type Antibody Screen 03/18/18 05:48 WBC RBC Hgb Hct MCV MCH MCHC RDW Plt Count MPV Neut % (Auto) Lymph % (Auto) [place] % (Auto) Eos % (Auto) Baso % (Auto) Neut # (Auto) Lymph # (Auto) [place] # (Auto) Eos # (Auto) Baso # (Auto) PT INR APTT 30 Sodium Potassium Chloride Carbon Dioxide Anion Gap BUN Creatinine Est GFR ( Amer) Est GFR (Non-Af Amer) POC Glucose (mg/dL) Random Glucose Hemoglobin A1c Calcium Phosphorus Magnesium Total Bilirubin AST ALT Alkaline Phosphatase Troponin I Total Protein Albumin Globulin Albumin/Globulin Ratio Triglycerides Cholesterol LDL Cholesterol Direct HDL Cholesterol Blood Type Antibody Screen EKG/Cardiology Studies: Cardiology / EKG Studies 03/17/18 17:14 ELECTROCARDIOGRAM Stat Comment: bed5 Mode Of Transportation: STRETCHER Reason For Exam: code stroke 03/17/18 17:19 ELECTROCARDIOGRAM Stat Comment: bed5 Mode Of Transportation: STRETCHER Reason For Exam: code stroke Fingerstick Blood Sugar Results: 83 Review of Systems - Review of Systems Systems not reviewed;Unavailable: Language Barrier Critical Care Progress Note - Nutrition Nutrition: Nutrition Category Date Time Status NPO Diet [DIET] Diets 03/17/18 Dinner Active Assessment/Plan (1) 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 PMHx BPH. p/w acute ischemic stroke s/p right MCA thrombectomy. Neuro: alert, follows commands. Is able to control and lift his left side extremities intermittently. Pulm: no acute issues, breathing spontaneously on room air. CV: hemodynamically stable Hem: no acute issues Renal: no acute issues, monitoring urine output Endo: no acute issues GI: NPO, swallow eval pending, patient was not totally awake when speech therapist arrived. ID: no acute issues DVT proph - heparin sq GI proph - protonix iv Code status - full code Critical Care Time spent 35 minutes Multi-disciplinary rounds were performed with house staff, nursing, speech therapy, respiratory therapy, pharmacy and nutrition with integrated input from the primary team/attending and other consulting services. The documented time is cumulative and includes review of patient data/exams/labs/chart review and examination of the patient on rounds and throughout the day; time is exclusive of any procedures or teaching time. Current Visit: Yes Status: Acute
--- NOTE | 2018-03-18 20:24 | CP.PCM.PN ---
Subjective - Subjective Subjective: dictated Objective - Vital Signs/Intake and Output Vital Signs (last 24 hours): Temp Pulse Resp BP Pulse Ox 98.4 F 77 14 138/82 96 03/18/18 20:00 03/18/18 20:00 03/18/18 20:00 03/18/18 20:00 03/18/18 20:00 Intake and Output: 03/18/18 03/19/18 18:59 06:59 Intake Total 750 100 Output Total 1200 200 Balance -450 -100 - Medications Medications: Current Medications Aspirin (Aspirin Supp) 300 mg UT DAILY [facility] Heparin Sodium (Porcine) (Heparin) 5,000 units SC Q12 [facility] Sodium Chloride (Sodium Chloride 0.9%) 1,000 mls @ 50 mls/hr IV .Q20H [facility] Last Admin: 03/18/18 10:12 Dose: 50 mls/hr Pantoprazole Sodium (Protonix Inj) 40 mg IVP DAILY [facility] Last Admin: 03/18/18 10:13 Dose: 40 mg Pneumococcal Polyvalent Vaccine (Pneumovax 23 Vaccine) 0.5 ml SC .ONCE ONE Stop: 03/20/18 10:01 - Labs Labs: 03/18/18 05:48 03/18/18 05:41 PT 14.2 SECONDS (9.7-12.2) H 03/17/18 17:40 INR 1.3 03/17/18 17:40 APTT 30 SECONDS (21-34) 03/18/18 05:48
--- NOTE | 2018-03-19 02:27 | PN ---
DATE: 03/18/2018 SUBJECTIVE: The patient, Atif, is status post intervention with removal of thrombus. The patient's left-sided weakness is improving. He is gradually becoming more alert, afebrile. No shortness of breath. Both sons are at the bedside, aware of the development. PHYSICAL EXAMINATION VITAL SIGNS: Blood pressure 117/51, pulse 65, respiratory rate 18, temperature 98.4. LUNGS: Clear. CARDIOVASCULAR SYSTEM: S1 and S2 regular. ABDOMEN: Soft. ASSESSMENT: 1. Cerebrovascular accident, status post thrombectomy in the right middle cerebral artery. 2. Benign prostatic hyperplasia. 3. Deep venous thrombosis, status post inferior vena cava filter, status post the patient being on Xarelto. PLAN: Continue current medications. Neurology will follow up. Wild Aponte MD
[2018-03-19] MEDS: Sodium Chloride 0.9% 1,000 ML IV SCH (04:13)
[2018-03-19 06:13] LABS: BASO # 0.1 K/uL (0.0-0.2); BASO % 0.9 % (0.0-2.0); EOS % 0.3 % (0.0-4.0); HEMOGLOBIN 12.1 g/dL (12.0-18.0); LYMPH # 1.9 K/uL (1.0-4.3); LYMPH % 27.9 % (20.0-40.0); MEAN CELL VOLUME 94.9 fL (80.0-94.0); MEAN CORPUSCULAR HEMOGLOBIN 32.3 pg (27.0-31.0); MEAN PLATELET VOLUME 8.7 fL (7.2-11.7); MONO # 0.5 K/uL (0.0-0.8); MONO % 7.7 % (0.0-10.0); NEUT # 4.3 K/uL (1.8-7.0); NEUT % 63.2 % (50.0-75.0); RBC 3.76 Mil/uL (4.40-5.90); RED CELL DISTRIBUTION WIDTH 14.9 % (11.5-14.5); WHITE BLOOD COUNT 6.7 K/uL (4.8-10.8)
[2018-03-19 06:45] LABS: ALT/SGPT 26 U/L (21-72); AST/SGOT 26 U/L (17-59); BLOOD UREA NITROGEN 13 mg/dL (9-20); CALCIUM 8.1 mg/dl (8.6-10.4); GFR NON-AFRICAN AMERICAN > 60
[2018-03-19 06:48] LABS: ALBUMIN 3.1 g/dL (3.5-5.0)
[2018-03-19 06:52] LABS: ALB/GLOB RATIO 1.2 (1.0-2.1)
--- NOTE | 2018-03-19 10:59 | CP.PCM.CON ---
History of Present Illness - History of Present Illness History of Present Illness: 87 yr old male, guyanese speaking only, who came in as a code stroke last night, with left arm, face, and leg plegia. Patient had a normal CT scan, and was out of the time window for TPA, but was a candidate for thrombectomy. Patient had CTA head and neck that showed complete Right MCA occlusion and Dr. Jolley went in for intervention, removing thrombus. Patient is now in ICU, and doing well. NIHHS approximately 19-20 PMH/pSH: HTN, DVT, hard of hearing. FH/SH: , has one son. All: nkda. On exam: Awake, alert, following one step commands. There is left sided neglect, with EOMI. PERRL. Cn 2-12 normal. speech is garbled but in guyanese it is understable. He can name and repeat. Left sided facial weakness noted. LEft arm: 4/5, left le/5 +2 dtr ul and bl. Toes downgoing . No clonus. Past Patient History - Infectious Disease Hx of Infectious Diseases: None - Past Medical History & Family History Past Medical History?: Yes - Past Social History Smoking Status: Unknown If Ever Smoked - CARDIAC Hx Peripheral Vascular Disease: Yes - PULMONARY Hx Respiratory Disorders: No - NEUROLOGICAL Hx Neurological Disorder: No - HEENT Hx HEENT Problems: Yes Other/Comment: hard of hearing both ears - RENAL Hx Chronic Kidney Disease: No - ENDOCRINE/METABOLIC Hx Endocrine Disorders: No - HEMATOLOGICAL/ONCOLOGICAL Hx Blood Disorders: No - INTEGUMENTARY Hx Dermatological Problems: No - MUSCULOSKELETAL/RHEUMATOLOGICAL Hx Falls: Yes - GASTROINTESTINAL Hx Gastrointestinal Disorders: No - GENITOURINARY/GYNECOLOGICAL Hx Genitourinary Disorders: Yes Hx Prostate Problems: Yes Other/Comment: BPH - PSYCHIATRIC Hx Substance Use: No - SURGICAL HISTORY Hx Surgeries: Yes Hx Herniorrhaphy: Yes - ANESTHESIA Hx Anesthesia: Yes Meds Allergies/Adverse Reactions: Allergies Allergy/AdvReac Type Severity Reaction Status Date / Time No Known Allergies Allergy Verified 03/18/18 03:59 - Medications Medications: Current Medications Aspirin (Aspirin Supp) 300 mg ND DAILY [facility] Last Admin: 03/19/18 10:26 Dose: 300 mg Heparin Sodium (Porcine) (Heparin) 5,000 units SC Q12 [facility] Last Admin: 03/19/18 10:26 Dose: 5,000 units Sodium Chloride (Sodium Chloride 0.9%) 1,000 mls @ 50 mls/hr IV .Q20H [facility] Last Admin: 03/19/18 04:13 Dose: 50 mls/hr Potassium Chloride (Potassium Chloride 20 Meq/100 Ml) 20 meq in 100 mls @ 50 mls/hr IVPB ONCE ONE Stop: 03/19/18 12:15 Pantoprazole Sodium (Protonix Inj) 40 mg IVP DAILY [facility] Last Admin: 03/19/18 10:26 Dose: 40 mg Pneumococcal Polyvalent Vaccine (Pneumovax 23 Vaccine) 0.5 ml SC .ONCE ONE Stop: 03/20/18 10:01 Rosuvastatin Calcium (Crestor) 10 mg PO [facility] Results - Vital Signs Recent Vital Signs: Last Vital Signs Temp 99.5 F 03/19/18 08:00 Pulse 80 03/19/18 08:00 Resp 19 03/19/18 08:00 BP 127/59 L 03/19/18 07:59 Pulse Ox 99 03/19/18 08:00 - Labs Result Diagrams: 03/19/18 06:03 03/19/18 06:03 Labs: Laboratory Results - last 24 hr 03/18/18 03/18/18 03/19/18 11:29 18:07 00:16 WBC RBC Hgb Hct MCV MCH MCHC RDW Plt Count MPV Neut % (Auto) Lymph % (Auto) [place] % (Auto) Eos % (Auto) Baso % (Auto) Neut # (Auto) Lymph # (Auto) [place] # (Auto) Eos # (Auto) Baso # (Auto) Sodium Potassium Chloride Carbon Dioxide Anion Gap BUN Creatinine Est GFR ( Amer) Est GFR (Non-Af Amer) POC Glucose (mg/dL) 83 94 81 Random Glucose Calcium Phosphorus Magnesium Total Bilirubin AST ALT Alkaline Phosphatase Total Protein Albumin Globulin Albumin/Globulin Ratio 03/19/18 03/19/18 03/19/18 06:03 06:03 06:09 WBC 6.7 RBC 3.76 L Hgb 12.1 Hct 35.6 MCV 94.9 H MCH 32.3 H MCHC 34.0 RDW 14.9 H Plt Count 195 MPV 8.7 Neut % (Auto) 63.2 Lymph % (Auto) 27.9 [place] % (Auto) 7.7 Eos % (Auto) 0.3 Baso % (Auto) 0.9 Neut # (Auto) 4.3 Lymph # (Auto) 1.9 [place] # (Auto) 0.5 Eos # (Auto) 0.0 Baso # (Auto) 0.1 Sodium 137 Potassium 3.4 L Chloride 108 H Carbon Dioxide 19 L Anion Gap 13 BUN 13 Creatinine 0.7 L Est GFR ( Amer) > 60 Est GFR (Non-Af Amer) > 60 POC Glucose (mg/dL) 70 Random Glucose 79 Calcium 8.1 L Phosphorus 2.7 Magnesium 1.8 Total Bilirubin 1.4 H AST 26 ALT 26 Alkaline Phosphatase 75 Total Protein 5.6 L Albumin 3.1 L Globulin 2.5 Albumin/Globulin Ratio 1.2 Assessment & Plan - Assessment and Plan (Free Text) Assessment: 87 yr old male s/p thrombectomy Right MCA who is here for stroke workup and doing well. Plan: 1. Echo 2. Permissive hypertension. 3. Aspirin 4. Lipid profile. 5. PT ST OT Thank you Dr. padgett Neurology
--- NOTE | 2018-03-19 15:33 | CP.PCM.PN ---
Subjective - Date & Time of Evaluation Date of Evaluation: 03/19/18 Time of Evaluation: 15:23 - Subjective Subjective: Patient is out of bed to chair, and last night went into rapid afib. Exam was conducted in yi. ROS: no complaints. On exam: Awake, alert, follows one step commands with great difficulty. +left sided facial weakness. Left arm is 4/5, left leg is 3/5. Patient has left sided neglect. Sensory exam is not accurate. +2 dtr ul and bll. toes downgoing. Objective - Vital Signs/Intake and Output Vital Signs (last 24 hours): Temp Pulse Resp BP Pulse Ox 97.7 F 74 17 98/68 L 96 03/19/18 12:00 03/19/18 15:01 03/19/18 15:01 03/19/18 15:01 03/19/18 13:00 Intake and Output: 03/19/18 03/19/18 06:59 18:59 Intake Total 600 510 Output Total 700 Balance -100 510 - Medications Medications: Current Medications Aspirin (Aspirin Supp) 300 mg IA DAILY [facility] Last Admin: 03/19/18 10:26 Dose: 300 mg Heparin Sodium (Porcine) (Heparin) 5,000 units SC Q12 [facility] Last Admin: 03/19/18 10:26 Dose: 5,000 units Sodium Chloride (Sodium Chloride 0.9%) 1,000 mls @ 50 mls/hr IV .Q20H [facility] Last Admin: 03/19/18 04:13 Dose: 50 mls/hr Pantoprazole Sodium (Protonix Inj) 40 mg IVP DAILY [facility] Last Admin: 03/19/18 10:26 Dose: 40 mg Pneumococcal Polyvalent Vaccine (Pneumovax 23 Vaccine) 0.5 ml SC .ONCE ONE Stop: 03/20/18 10:01 Rosuvastatin Calcium (Crestor) 10 mg PO HS [facility] - Labs Labs: 03/19/18 06:03 03/19/18 06:03 PT 14.2 SECONDS (9.7-12.2) H 03/17/18 17:40 INR 1.3 03/17/18 17:40 APTT 30 SECONDS (21-34) 03/18/18 05:48 Assessment and Plan - Assessment and Plan (Free Text) Assessment: 87 yr old male s/p right mca stroke, with thrombectomy performed, now stable neurological exam. Plan: 1. Discussed with Dr. Wisdom. Continue aspirin and in 3 days we can start eloquis 2. Speech and occupational therapy needed jose luis 3. may control blood pressure now 4. Neuro checks q shift. Thank you Dr. padgett Neurology
--- NOTE | 2018-03-19 21:42 | CP.PCM.PN ---
Subjective - Subjective Subjective: dictated Objective - Vital Signs/Intake and Output Vital Signs (last 24 hours): Temp Pulse Resp BP Pulse Ox 99.5 F 74 15 131/88 96 03/19/18 16:00 03/19/18 18:39 03/19/18 18:39 03/19/18 19:00 03/19/18 13:00 Intake and Output: 03/19/18 03/20/18 18:59 06:59 Intake Total 660 110 Output Total 200 Balance 460 110 - Medications Medications: Current Medications Aspirin (Aspirin Supp) 300 mg HI DAILY [facility] Last Admin: 03/19/18 10:26 Dose: 300 mg Heparin Sodium (Porcine) (Heparin) 5,000 units SC Q12 [facility] Last Admin: 03/19/18 10:26 Dose: 5,000 units Sodium Chloride (Sodium Chloride 0.9%) 1,000 mls @ 50 mls/hr IV .Q20H [facility] Last Admin: 03/19/18 04:13 Dose: 50 mls/hr Pantoprazole Sodium (Protonix Inj) 40 mg IVP DAILY [facility] Last Admin: 03/19/18 10:26 Dose: 40 mg Pneumococcal Polyvalent Vaccine (Pneumovax 23 Vaccine) 0.5 ml SC .ONCE ONE Stop: 03/20/18 10:01 Rosuvastatin Calcium (Crestor) 10 mg PO HS [facility] - Labs Labs: 03/19/18 06:03 03/19/18 06:03 PT 14.2 SECONDS (9.7-12.2) H 03/17/18 17:40 INR 1.3 03/17/18 17:40 APTT 30 SECONDS (21-34) 03/18/18 05:48
[2018-03-20] MEDS: Sodium Chloride 0.9% 1,000 ML IV SCH ×2 (00:50→22:13)
--- NOTE | 2018-03-20 04:49 | PN ---
DATE: 03/19/2018 SUBJECTIVE: Jonas Srivastava is improving. His left-sided weakness is improving. He is , afebrile. No shortness of breath. PHYSICAL EXAMINATION: VITAL SIGNS: Blood pressure 131/88, pulse 74, respiratory rate 18, and temperature 98. LUNGS: Clear. CARDIOVASCULAR SYSTEM: S1 and S2 regular. ABDOMEN: Soft. CENTRAL NERVOUS SYSTEM: Awake. ASSESSMENT: 1. Cerebrovascular accident with left-sided weakness, status post right-sided fall, middle cerebral artery occlusion, status post stent. 2. Hypertension. 3. Deep venous thrombosis, on Xarelto. PLAN: Continue current medications. Monitor the patient. Wild Aponte MD
--- NOTE | 2018-03-20 09:52 | CARD ---
APPROVED REPORT Date of service: 03/19/2018 EKG Measurement Heart [id number] <Conclusion> Undetermined rhythm Left axis deviation Inferior infarct, age undetermined Abnormal ECG
[2018-03-20] MEDS ORDERED: Pneumococcal 23-Valent Vaccine SC ONE (10:00)
--- NOTE | 2018-03-20 12:16 | CP.PCM.CON ---
<Mariel Estevez - Last Filed: 03/20/18 18:47> History of Present Illness - History of Present Illness History of Present Illness: Cardiology Consult Note This is an 87 year old male with unknown past medical history, referred to our service by Dr. Álvaro Palm, for new onset atrial fibrillation. Patient was last seen normal on day of admission, 8am after he dropped off his grand kids at school. He was brought in by ambulance for AMS, left sided facial droop and left sided hemiplegia. Head CT, Head CTA was done showing a right middle cerebral artery occlusion, patient is s/p Right MCA Thrombectomy. Cardiology was consulted for new onset atrial fibrillation. ROS unattainable due to AMS. PMHx: Unknown PSHx: Unknown All: NKDA SHx: Unknown FHx: Unknown Review of Systems - Review of Systems Systems not reviewed;Unavailable: Altered Mental Status Past Patient History - Infectious Disease Hx of Infectious Diseases: None - Past Medical History & Family History Past Medical History?: Yes - Past Social History Smoking Status: Unknown If Ever Smoked - CARDIAC Hx Cardiac Disorders: Yes - PULMONARY Hx Respiratory Disorders: No - NEUROLOGICAL Hx Neurological Disorder: No - HEENT Hx HEENT Problems: Yes Other/Comment: hard of hearing both ears - RENAL Hx Chronic Kidney Disease: No - ENDOCRINE/METABOLIC Hx Endocrine Disorders: No - HEMATOLOGICAL/ONCOLOGICAL Hx Blood Disorders: No - INTEGUMENTARY Hx Dermatological Problems: No - MUSCULOSKELETAL/RHEUMATOLOGICAL Hx Falls: Yes - GASTROINTESTINAL Hx Gastrointestinal Disorders: No - GENITOURINARY/GYNECOLOGICAL Hx Genitourinary Disorders: Yes Hx Prostate Problems: Yes Other/Comment: BPH - PSYCHIATRIC Hx Substance Use: No - SURGICAL HISTORY Hx Surgeries: Yes Hx Herniorrhaphy: Yes - ANESTHESIA Hx Anesthesia: Yes Meds Allergies/Adverse Reactions: Allergies Allergy/AdvReac Type Severity Reaction Status Date / Time No Known Allergies Allergy Verified 03/18/18 03:59 - Medications Medications: Current Medications Aspirin (Aspirin Supp) 300 mg TX DAILY [facility] Last Admin: 03/20/18 10:46 Dose: 300 mg Heparin Sodium (Porcine) (Heparin) 5,000 units SC Q12 [facility] Last Admin: 03/20/18 10:46 Dose: 5,000 units Sodium Chloride (Sodium Chloride 0.9%) 1,000 mls @ 50 mls/hr IV .Q20H [facility] Last Admin: 03/20/18 00:50 Dose: 50 mls/hr Pantoprazole Sodium (Protonix Inj) 40 mg IVP DAILY [facility] Last Admin: 03/20/18 10:50 Dose: 40 mg Rosuvastatin Calcium (Crestor) 10 mg PO HS [facility] Last Admin: 03/19/18 22:36 Dose: Not Given Physical Exam - Constitutional Appears: Confused - Head Exam Head Exam: NORMAL INSPECTION, NORMOCEPHALIC - Eye Exam Eye Exam: EOMI, Normal appearance, PERRL - ENT Exam ENT Exam: Mucous Membranes Dry - Respiratory Exam Respiratory Exam: Clear to Auscultation Bilateral - Cardiovascular Exam Cardiovascular Exam: Irregular Rhythm, +S1, +S2 - GI/Abdominal Exam GI & Abdominal Exam: Normal Bowel Sounds, Soft. absent: Distended, Tenderness - Extremities Exam Extremities exam: Positive for: normal inspection, pedal pulses present. Negative for: pedal edema, tenderness - Neurological Exam Neurological exam: Alert, Altered - Skin Skin Exam: Dry, Intact, Normal Color, Warm Results - Vital Signs Recent Vital Signs: Last Vital Signs Temp 99.2 F 03/20/18 04:00 Pulse 73 03/20/18 04:00 Resp 21 03/20/18 04:00 BP 128/67 03/20/18 04:00 Pulse Ox 97 03/20/18 04:00 - Labs Result Diagrams: 03/19/18 06:03 03/19/18 06:03 Labs: Laboratory Results - last 24 hr 03/19/18 03/19/18 03/20/18 17:59 23:47 06:16 POC Glucose (mg/dL) 78 75 77 03/20/18 12:01 POC Glucose (mg/dL) 83 Assessment & Plan - Assessment and Plan (Free Text) Plan: Acute Ischemic Stroke s/p Right MCA Thrombectomy New Onset Atrial Fibrillation Management: - Due to hemorrhagic conversion, contraindicated to start AC - Continue to monitor Case discussed with Mariel Adams DO, PGY2 <Romulo Myers - Last Filed: 03/20/18 22:11> Meds - Medications Medications: Current Medications Heparin Sodium (Porcine) (Heparin) 5,000 units SC Q12 [facility] Last Admin: 03/20/18 21:27 Dose: 5,000 units Sodium Chloride (Sodium Chloride 0.9%) 1,000 mls @ 50 mls/hr IV .Q20H [facility] Last Admin: 03/20/18 00:50 Dose: 50 mls/hr Lactic Acid (Lac-Hydrin 12% Lotion (225 G)) 0 gm EXT BID [facility] Last Admin: 03/20/18 18:28 Dose: 1 applic Pantoprazole Sodium (Protonix Inj) 40 mg IVP DAILY [facility] Last Admin: 03/20/18 10:50 Dose: 40 mg Rosuvastatin Calcium (Crestor) 10 mg PO HS [facility] Last Admin: 03/20/18 21:28 Dose: 10 mg Results - Vital Signs Recent Vital Signs: Last Vital Signs Temp 99.2 F 03/20/18 20:00 Pulse 78 03/20/18 21:02 Resp 18 03/20/18 21:02 BP 131/71 03/20/18 21:02 Pulse Ox 95 03/20/18 21:02 - Labs Result Diagrams: 03/19/18 06:03 03/19/18 06:03 Labs: Laboratory Results - last 24 hr 03/19/18 03/20/18 03/20/18 23:47 06:16 12:01 POC Glucose (mg/dL) 75 77 83 03/20/18 17:50 POC Glucose (mg/dL) 77 Assessment & Plan - Assessment and Plan (Free Text) Plan: Patient seen and evaluated in person by me. Plan of care d/w the medical field representative and as documented
--- NOTE | 2018-03-20 16:12 | CP.PCM.PN ---
Subjective - Date & Time of Evaluation Date of Evaluation: 03/20/18 Time of Evaluation: 16:12 - Subjective Subjective: Progress note for Dr. Lozada Patient was seen and examined at bedside. Patient's sons were at bedside. Patient is lethargic, but attempting to follow commands. ROS unobtainable due to patient's condition. Objective - Vital Signs/Intake and Output Vital Signs (last 24 hours): Temp Pulse Resp BP Pulse Ox 99.1 F 78 23 123/66 96 03/20/18 12:00 03/20/18 12:00 03/20/18 12:00 03/20/18 12:00 03/20/18 12:00 Intake and Output: 03/20/18 03/20/18 06:59 18:59 Intake Total 610 Balance 610 - Medications Medications: Current Medications Aspirin (Aspirin Supp) 300 mg MO DAILY [facility] Last Admin: 03/20/18 10:46 Dose: 300 mg Heparin Sodium (Porcine) (Heparin) 5,000 units SC Q12 [facility] Last Admin: 03/20/18 10:46 Dose: 5,000 units Sodium Chloride (Sodium Chloride 0.9%) 1,000 mls @ 50 mls/hr IV .Q20H [facility] Last Admin: 03/20/18 00:50 Dose: 50 mls/hr Lactic Acid (Lac-Hydrin 12% Lotion (225 G)) 0 gm EXT BID [facility] Pantoprazole Sodium (Protonix Inj) 40 mg IVP DAILY [facility] Last Admin: 03/20/18 10:50 Dose: 40 mg Rosuvastatin Calcium (Crestor) 10 mg PO HS [facility] Last Admin: 03/19/18 22:36 Dose: Not Given - Labs Labs: 03/19/18 06:03 03/19/18 06:03 PT 14.2 SECONDS (9.7-12.2) H 03/17/18 17:40 INR 1.3 03/17/18 17:40 APTT 30 SECONDS (21-34) 03/18/18 05:48 - Head Exam Head Exam: NORMAL INSPECTION - Eye Exam Eye Exam: EOMI - ENT Exam ENT Exam: Mucous Membranes Dry - Neck Exam Additional comments: NGT in place - Respiratory Exam Respiratory Exam: NORMAL BREATHING PATTERN. absent: Respiratory Distress - Cardiovascular Exam Cardiovascular Exam: Irregular Rhythm, +S1, +S2 - Extremities Exam Extremities Exam: absent: Full ROM Additional comments: LUE 1/5 strength antigravity; LLE 2/5 strength antigravity. - Neurological Exam Neurological Exam: Awake (lethargic), Motor Sensory Deficit (LUE 1/5 strength antigravity; LLE 2/5 strength antigravity. ), Reflexes Normal. absent: Alert - Psychiatric Exam Additional comments: Lethargic - Skin Skin Exam: Normal Color, Warm Assessment and Plan - Assessment and Plan (Free Text) Plan: 87 year old male s/p acute ischemic stroke and right MCA thrombectomy Plan: - Repeated Head CT due to patient's lethargy--> showed intracranial hemorrhage * Head CT (03/20): large RMCA infarct has now undergone hemorrhagic conversion; hemorrhagic epicenter is located right anterior basal ganglia; persistent mild mass effect; extensive chronic white matter ischemic changes - Discontinued Aspirin 300mg MO. Will not start Eliquis in 2 days due to hemorrhage. - Will continue Heparin 5000u SC Q12 for DVT prophylaxis - Will repeat Head CT in 24 hours to assess for changes--> f/u - NGT placed as patient continues to fail swallow eval due to lethargy and inability to follow commands - Continue PT/ST/OT - New onset afib--> Dr. Myers consulted; will f/u recommendations Case discussed with Dr. Kierra Montero, PGY2
--- NOTE | 2018-03-20 17:22 | CT ---
Date of service: 03/20/2018 PROCEDURE: CT HEAD WITHOUT CONTRAST. HISTORY: Stroke s/p thrombectomy, increased lethargy COMPARISON: Comparison made with prior CT scan 03/18/2018.. TECHNIQUE: Axial computed tomography images were obtained through the head/brain without intravenous contrast. Radiation dose: Total exam DLP = 1068.57 mGy-cm. This CT exam was performed using one or more of the following dose reduction techniques: Automated exposure control, adjustment of the mA and/or kV according to patient size, and/or use of iterative reconstruction technique. FINDINGS: HEMORRHAGE: Current study reveals new hemorrhagic conversion changes within a relatively large right MCA territory infarct. The elliptical shaped hemorrhagic epicenter is located in the right anterior basal ganglia (right caudate head which extends inferolaterally and slightly posteriorly).. Relatively large infarct changes involving most of the right basal ganglia as well as the right temporal lobe extending into the right posterior temporoparietal watershed zone are seen to better advantage on this exam. There is persistent mild mass effect with compression of the right lateral ventricle. Extensive and significant diffuse/confluent chronic white matter ischemic changes are also seen extending peripherally and subcortical white matter both cerebral hemispheres. Moderate to significant generalized volume loss not withstanding aforementioned infarct and mass-effect. BRAIN: As above.. VENTRICLES: No obstructive hydrocephalus. CALVARIUM: Unremarkable. PARANASAL SINUSES: Unremarkable as visualized. No significant inflammatory changes. MASTOID AIR CELLS: Unremarkable as visualized. No inflammatory changes. OTHER FINDINGS: None. IMPRESSION: Large right MCA territory infarct which has now undergone hemorrhagic conversion. The hemorrhagic epicenter is located the right anterior basal ganglia as detailed above. Persistent mild mass-effect. Extensive chronic white matter ischemic changes. Discussed with ICU resident weight and balance control agent Dr. Ngo at approximately 5:17 p.m. with written down and read back verification.
[2018-03-20] MEDS: Ammonium Lactate 12% Lotion (225 g) EXT SCH (18:28)
--- NOTE | 2018-03-20 20:20 | CP.PCM.CON ---
History of Present Illness - History of Present Illness History of Present Illness: 87-year-old male admitted 03/17/18 with acute stroke, s/p right MCA thrombectomy. CT scan done today shows hemorrhagic conversion of infarct. Seen by Neurology,aspirin discontinued PMD requesting ICU monitoring Review of Systems - Review of Systems Review of Systems: unable to get history Past Patient History - Infectious Disease Hx of Infectious Diseases: None - Past Medical History & Family History Past Medical History?: Yes - Past Social History Smoking Status: Unknown If Ever Smoked - CARDIAC Hx Cardiac Disorders: Yes - PULMONARY Hx Respiratory Disorders: No - NEUROLOGICAL Hx Neurological Disorder: No - HEENT Hx HEENT Problems: Yes Other/Comment: hard of hearing both ears - RENAL Hx Chronic Kidney Disease: No - ENDOCRINE/METABOLIC Hx Endocrine Disorders: No - HEMATOLOGICAL/ONCOLOGICAL Hx Blood Disorders: No - INTEGUMENTARY Hx Dermatological Problems: No - MUSCULOSKELETAL/RHEUMATOLOGICAL Hx Falls: Yes - GASTROINTESTINAL Hx Gastrointestinal Disorders: No - GENITOURINARY/GYNECOLOGICAL Hx Genitourinary Disorders: Yes Hx Prostate Problems: Yes Other/Comment: BPH - PSYCHIATRIC Hx Substance Use: No - SURGICAL HISTORY Hx Surgeries: Yes Hx Herniorrhaphy: Yes - ANESTHESIA Hx Anesthesia: Yes Meds Allergies/Adverse Reactions: Allergies Allergy/AdvReac Type Severity Reaction Status Date / Time No Known Allergies Allergy Verified 03/18/18 03:59 - Medications Medications: Current Medications Heparin Sodium (Porcine) (Heparin) 5,000 units SC Q12 [facility] Last Admin: 03/20/18 10:46 Dose: 5,000 units Sodium Chloride (Sodium Chloride 0.9%) 1,000 mls @ 50 mls/hr IV .Q20H [facility] Last Admin: 03/20/18 00:50 Dose: 50 mls/hr Lactic Acid (Lac-Hydrin 12% Lotion (225 G)) 0 gm EXT BID [facility] Last Admin: 03/20/18 18:28 Dose: 1 applic Pantoprazole Sodium (Protonix Inj) 40 mg IVP DAILY [facility] Last Admin: 03/20/18 10:50 Dose: 40 mg Rosuvastatin Calcium (Crestor) 10 mg PO HS [facility] Last Admin: 03/19/18 22:36 Dose: Not Given Physical Exam - Constitutional Appears: No Acute Distress, Confused - Head Exam Head Exam: ATRAUMATIC, NORMAL INSPECTION - Eye Exam Eye Exam: PERRL - ENT Exam ENT Exam: Mucous Membranes Moist - Neck Exam Neck exam: Positive for: Normal Inspection - Respiratory Exam Respiratory Exam: Clear to Auscultation Bilateral, NORMAL BREATHING PATTERN - Cardiovascular Exam Cardiovascular Exam: Irregular Rhythm - GI/Abdominal Exam GI & Abdominal Exam: Normal Bowel Sounds, Soft. absent: Tenderness - Neurological Exam Additional comments: moves all extremities,weaker on left left facial droop Results - Vital Signs Recent Vital Signs: Last Vital Signs Temp 99.3 F 03/20/18 16:00 Pulse 65 03/20/18 16:00 Resp 26 H 03/20/18 16:00 BP 108/57 L 03/20/18 16:00 Pulse Ox 96 03/20/18 16:00 - Labs Result Diagrams: 03/19/18 06:03 03/19/18 06:03 Labs: Laboratory Results - last 24 hr 03/19/18 03/20/18 03/20/18 23:47 06:16 12:01 POC Glucose (mg/dL) 75 77 83 03/20/18 17:50 POC Glucose (mg/dL) 77 Assessment & Plan - Assessment and Plan (Free Text) Assessment: 87yo M. PMHx BPH admitted with acute ischemic stroke s/p right MCA thrombectomy.CT scan today showing hemorrhagic conversion of stroke,new onset atrial fibrillation Hypokalemia Neuro: awake,confused. Pulm: no acute issues, breathing spontaneously on room air. CV: Atrial fibrillation,hemodynamically stable Hem: no acute issues Renal: no acute issues, monitoring urine output Endo: no acute issues GI: NPO ID: no acute issues DVT proph - heparin sq GI proph - protonix iv Code status - full code
[2018-03-20] MEDS ORDERED: Potassium Chloride 20 mEq/15 ml LIQ UD NG ONE (21:00)
--- NOTE | 2018-03-20 21:52 | CP.PCM.PN ---
Subjective - Subjective Subjective: dictated Objective - Vital Signs/Intake and Output Vital Signs (last 24 hours): Temp Pulse Resp BP Pulse Ox 99.2 F 78 18 131/71 95 03/20/18 20:00 03/20/18 21:02 03/20/18 21:02 03/20/18 21:02 03/20/18 21:02 Intake and Output: 03/20/18 03/21/18 18:59 06:59 Intake Total 600 210 Output Total 225 Balance 375 210 - Medications Medications: Current Medications Heparin Sodium (Porcine) (Heparin) 5,000 units SC Q12 [facility] Last Admin: 03/20/18 21:27 Dose: 5,000 units Sodium Chloride (Sodium Chloride 0.9%) 1,000 mls @ 50 mls/hr IV .Q20H [facility] Last Admin: 03/20/18 00:50 Dose: 50 mls/hr Lactic Acid (Lac-Hydrin 12% Lotion (225 G)) 0 gm EXT BID [facility] Last Admin: 03/20/18 18:28 Dose: 1 applic Pantoprazole Sodium (Protonix Inj) 40 mg IVP DAILY [facility] Last Admin: 03/20/18 10:50 Dose: 40 mg Rosuvastatin Calcium (Crestor) 10 mg PO HS [facility] Last Admin: 03/20/18 21:28 Dose: 10 mg - Labs Labs: 03/19/18 06:03 03/19/18 06:03 PT 14.2 SECONDS (9.7-12.2) H 03/17/18 17:40 INR 1.3 03/17/18 17:40 APTT 30 SECONDS (21-34) 03/18/18 05:48
--- NOTE | 2018-03-21 03:46 | PN ---
DATE: 03/20/2018 SUBJECTIVE: Atif is slightly drowsy. He is afebrile. No shortness of breath. He has a CT of the head done, which shows right middle cerebral artery infarct and hemorrhagic conversion extending to thalamus. The patient is afebrile. He is drowsy. No chest pain. No nausea or vomiting. No shortness of breath. PHYSICAL EXAMINATION: VITAL SIGNS: Blood pressure 124/74, pulse 69, respiratory rate 20, and temperature 98. LUNGS: Clear. CARDIOVASCULAR SYSTEM: S1 and S2 are regular. ABDOMEN: Soft. CENTRAL NERVOUS SYSTEM: The patient is arousable. He is weak and drowsy. ASSESSMENT: 1. Cerebrovascular accident in right middle cerebral artery territory with hemorrhagic conversion. Hold antiplatelet therapy. 2. Hypertension. 3. Atherosclerosis. 3. Deep venous thrombosis, with inferior vena cava filter. PLAN: ICU evaluation. Monitor the patient in the ICU. Wild Aponte MD
[2018-03-21 05:41] LABS: BASO % 0.3 % (0.0-2.0); HEMOGLOBIN 12.8 g/dL (12.0-18.0); LYMPH # 2.1 K/uL (1.0-4.3); LYMPH % 22.7 % (20.0-40.0); MEAN CELL VOLUME 94.9 fL (80.0-94.0); MEAN CORPUSCULAR HEMOGLOBIN 31.6 pg (27.0-31.0); MEAN CORPUSCULAR HGB CONC 33.3 g/dL (33.0-37.0); MEAN PLATELET VOLUME 9.2 fL (7.2-11.7); MONO # 0.8 K/uL (0.0-0.8); MONO % 8.8 % (0.0-10.0); NEUT # 6.3 K/uL (1.8-7.0); NEUT % 68.2 % (50.0-75.0); RBC 4.04 Mil/uL (4.40-5.90); WHITE BLOOD COUNT 9.2 K/uL (4.8-10.8)
[2018-03-21 06:06] LABS: ALB/GLOB RATIO 1.1 (1.0-2.1); ALBUMIN 3.3 g/dL (3.5-5.0); ALT/SGPT 24 U/L (21-72); AST/SGOT 27 U/L (17-59); BLOOD UREA NITROGEN 20 mg/dL (9-20); CALCIUM 8.7 mg/dl (8.6-10.4); GFR NON-AFRICAN AMERICAN > 60
[2018-03-21] MEDS ORDERED: Potassium Chloride 20 mEq/15 ml LIQ UD NG ONE (07:45)
[2018-03-21] MEDS: Ammonium Lactate 12% Lotion (225 g) EXT SCH ×2 (10:16→17:58)
--- NOTE | 2018-03-21 11:29 | CP.CCUPN ---
<Teja Mott - Last Filed: 03/21/18 11:50> CCU Subjective - Physician Review Subjective (Free Text): 03/21/18 11:28 Teja Mott PGY1 Progress Note for Dr. Mccabe Pt was examined at bedside this morning. He is sleepy, but arousable. He is non verbal at this time, unable to respond to direct questions. ROS was unattainable. CCU Objective - Vital Signs / Intake & Output Intake and Output (Last 8hrs): Intake & Output 03/20/18 03/21/18 03/21/18 22:59 06:59 14:59 Intake Total 660 400 50 Output Total 225 300 Balance 435 100 50 Intake: Intake, IV Amount 610 400 50 Left Antecubital 10 Left Forearm 200 400 50 Left Wrist 400 Other 50 Output: Urine 225 300 Condom 225 300 Other: # Voids Condom 1 # Bowel Movements 0 0 - Physical Exam Physical Exam Limitations: Positive for: Altered Mental Status Head: Positive for: Atraumatic, Normocephalic Pupils: Positive for: PERRL Extroacular Muscles: Positive for: EOMI Conjunctiva: Positive for: Normal Mouth: Positive for: Moist Mucous Membranes Pharnyx: Positive for: Normal Neck: Positive for: Normal Range of Motion Respiratory/Chest: Positive for: Clear to Auscultation, Good Air Exchange Cardiovascular: Positive for: Regular Rate and Rhythm, Murmurs Abdomen: Positive for: Normal Bowel Sounds. Negative for: Tenderness, Distention Upper Extremity: Positive for: Normal Inspection Lower Extremity: Positive for: Other (PVD, ecchymosis) Neurological: Positive for: Other (left facial droop. 4/5 LUE, 4/5 LLE) Psychiatric: Positive for: Alert Other physical findings (Free Text): Neuro: L sided facial asymmetry 2/5 muscle strength LLE, LUE - Medications Active Medications: Active Medications Generic Name Dose Route Start Last Admin Trade Name Freq PRN Reason Stop Dose Admin Heparin Sodium (Porcine) 5,000 units 03/18/18 22:00 03/20/18 21:27 Heparin SC 5,000 units Q12 TETO Administration Sodium Chloride 1,000 mls @ 50 mls/hr 03/18/18 08:22 03/20/18 22:13 Sodium Chloride 0.9% IV 50 mls/hr .Q20H TETO Administration Lactic Acid 0 gm 03/20/18 18:00 03/21/18 10:16 Lac-Hydrin 12% Lotion (225 G) EXT 1 applic BID TETO Administration Pantoprazole Sodium 40 mg 03/18/18 10:00 03/21/18 10:16 Protonix Inj IVP 40 mg DAILY TETO Administration Rosuvastatin Calcium 10 mg 03/19/18 22:00 03/20/18 21:28 Crestor PO 10 mg HS TETO Administration - Patient Studies Lab Studies: Lab Studies 03/21/18 03/21/18 03/21/18 Range/Units 05:26 05:25 04:56 WBC 9.2 (4.8-10.8) K/uL RBC 4.04 L (4.40-5.90) Mil/uL Hgb 12.8 (12.0-18.0) g/dL Hct 38.4 (35.0-51.0) % MCV 94.9 H (80.0-94.0) fL MCH 31.6 H (27.0-31.0) pg MCHC 33.3 (33.0-37.0) g/dL RDW 15.0 H (11.5-14.5) % Plt Count 205 (130-400) K/uL MPV 9.2 (7.2-11.7) fL Neut % (Auto) 68.2 (50.0-75.0) % Lymph % (Auto) 22.7 (20.0-40.0) % York % (Auto) 8.8 (0.0-10.0) % Eos % (Auto) 0.0 (0.0-4.0) % Baso % (Auto) 0.3 (0.0-2.0) % Neut # (Auto) 6.3 (1.8-7.0) K/uL Lymph # (Auto) 2.1 (1.0-4.3) K/uL York # (Auto) 0.8 (0.0-0.8) K/uL Eos # (Auto) 0.0 (0.0-0.7) K/uL Baso # (Auto) 0.0 (0.0-0.2) K/uL Sodium 141 (132-148) mmol/L Potassium 3.5 L (3.6-5.2) mmol/L Chloride 113 H (98-107) mmol/L Carbon Dioxide 16 L (22-30) mmol/L Anion Gap 16 (10-20) BUN 20 (9-20) mg/dL Creatinine 0.9 (0.8-1.5) mg/dL Est GFR ( Amer) > 60 Est GFR (Non-Af Amer) > 60 POC Glucose (mg/dL) 107 (65-110) mg/dL Random Glucose 108 (75-110) mg/dL Calcium 8.7 (8.6-10.4) mg/dl Phosphorus 2.5 (2.5-4.5) mg/dL Magnesium 2.0 (1.6-2.3) mg/dL Total Bilirubin 1.3 (0.2-1.3) mg/dL AST 27 (17-59) U/L ALT 24 (21-72) U/L Alkaline Phosphatase 73 (38-126) U/L Total Protein 6.2 L (6.3-8.3) g/dL Albumin 3.3 L (3.5-5.0) g/dL Globulin 2.9 (2.2-3.9) gm/dL Albumin/Globulin Ratio 1.1 (1.0-2.1) 03/20/18 03/20/18 03/20/18 Range/Units 23:51 17:50 12:01 WBC (4.8-10.8) K/uL RBC (4.40-5.90) Mil/uL Hgb (12.0-18.0) g/dL Hct (35.0-51.0) % MCV (80.0-94.0) fL MCH (27.0-31.0) pg MCHC (33.0-37.0) g/dL RDW (11.5-14.5) % Plt Count (130-400) K/uL MPV (7.2-11.7) fL Neut % (Auto) (50.0-75.0) % Lymph % (Auto) (20.0-40.0) % York % (Auto) (0.0-10.0) % Eos % (Auto) (0.0-4.0) % Baso % (Auto) (0.0-2.0) % Neut # (Auto) (1.8-7.0) K/uL Lymph # (Auto) (1.0-4.3) K/uL York # (Auto) (0.0-0.8) K/uL Eos # (Auto) (0.0-0.7) K/uL Baso # (Auto) (0.0-0.2) K/uL Sodium (132-148) mmol/L Potassium (3.6-5.2) mmol/L Chloride (98-107) mmol/L Carbon Dioxide (22-30) mmol/L Anion Gap (10-20) BUN (9-20) mg/dL Creatinine (0.8-1.5) mg/dL Est GFR ( Amer) Est GFR (Non-Af Amer) POC Glucose (mg/dL) 87 77 83 (65-110) mg/dL Random Glucose (75-110) mg/dL Calcium (8.6-10.4) mg/dl Phosphorus (2.5-4.5) mg/dL Magnesium (1.6-2.3) mg/dL Total Bilirubin (0.2-1.3) mg/dL AST (17-59) U/L ALT (21-72) U/L Alkaline Phosphatase (38-126) U/L Total Protein (6.3-8.3) g/dL Albumin (3.5-5.0) g/dL Globulin (2.2-3.9) gm/dL Albumin/Globulin Ratio (1.0-2.1) Laboratory Results - last 24 hr 03/20/18 03/20/18 03/20/18 12:01 17:50 23:51 WBC RBC Hgb Hct MCV MCH MCHC RDW Plt Count MPV Neut % (Auto) Lymph % (Auto) York % (Auto) Eos % (Auto) Baso % (Auto) Neut # (Auto) Lymph # (Auto) York # (Auto) Eos # (Auto) Baso # (Auto) Sodium Potassium Chloride Carbon Dioxide Anion Gap BUN Creatinine Est GFR ( Amer) Est GFR (Non-Af Amer) POC Glucose (mg/dL) 83 77 87 Random Glucose Calcium Phosphorus Magnesium Total Bilirubin AST ALT Alkaline Phosphatase Total Protein Albumin Globulin Albumin/Globulin Ratio 03/21/18 03/21/18 03/21/18 04:56 05:25 05:26 WBC 9.2 RBC 4.04 L Hgb 12.8 Hct 38.4 MCV 94.9 H MCH 31.6 H MCHC 33.3 RDW 15.0 H Plt Count 205 MPV 9.2 Neut % (Auto) 68.2 Lymph % (Auto) 22.7 York % (Auto) 8.8 Eos % (Auto) 0.0 Baso % (Auto) 0.3 Neut # (Auto) 6.3 Lymph # (Auto) 2.1 York # (Auto) 0.8 Eos # (Auto) 0.0 Baso # (Auto) 0.0 Sodium 141 Potassium 3.5 L Chloride 113 H Carbon Dioxide 16 L Anion Gap 16 BUN 20 Creatinine 0.9 Est GFR ( Amer) > 60 Est GFR (Non-Af Amer) > 60 POC Glucose (mg/dL) 107 Random Glucose 108 Calcium 8.7 Phosphorus 2.5 Magnesium 2.0 Total Bilirubin 1.3 AST 27 ALT 24 Alkaline Phosphatase 73 Total Protein 6.2 L Albumin 3.3 L Globulin 2.9 Albumin/Globulin Ratio 1.1 Fingerstick Blood Sugar Results: 107 Review of Systems - Review of Systems Review of Systems: not obtainable at this time Critical Care Progress Note - Nutrition Nutrition: Nutrition Category Date Time Status NPO Diet [DIET] Diets 03/17/18 Dinner Active Assessment/Plan - Assessment and Plan (Free Text) Assessment: 87yo M PMHx PVD w/ IVC filter, BPH, presenting with L sided weakness to the ED and was called a code stroke. Pt found to have acute ischemic stroke, s/p right MCA thrombectomy on 03/17. CT brain 03/20 showed hemorrhagic conversion. Pt currently off anticoagulation. Plan: Neuro - acute ischemic stroke with hemorrhagic conversion - s/p R MCA thrombectomy 03/17 - CT brain 03/20: large R MCA infarct undergone hemorrhagic conversion w/ epicenter in R anterior basal ganglia. extensive chronic white matter ischemic changes - [id number] VASc score: 4 - HAS-BLED score: 3 - crestor 10 PO HS - hold heparin - hold eliquis for 2 days, as per neuro - d/c ASA - Neuro consulted, Dr. Derik velazquez appreciated Cardio - new onset A.fib - hold anticoagulation at this time, as per cardio - crestor 10 PO HS - Cardio consulted, Dr. Myers- recjr appreciated Pulm - maintain SpO2>92% - no active issues GI - pt failed speech/swallow eval - NG tube in place - start jevity feeds - protonix 40mg IV daily Heme - hold anticoagulation at this time as pt is high risk for further bleed - SCDs for DVT ppx ID - no active issues Endo - maintain euglycemia PPX GI: protonix 40 DVT: SCDs Jevity feeds Pt seen and case reviewed with Dr. Mccabe <Harvey Mccabe S - Last Filed: 03/21/18 18:24> CCU Subjective - Physician Review Critical Care Time Spent (in minutes): 35 CCU Objective - Vital Signs / Intake & Output Vital Signs (Last 4 hours): Vital Signs Pulse Resp BP Pulse Ox 03/21/18 17:05 79 16 138/75 95 03/21/18 16:02 80 22 139/74 96 03/21/18 15:02 78 32 H 134/74 95 Intake and Output (Last 8hrs): Intake & Output 03/21/18 03/21/18 03/21/18 06:59 14:59 22:59 Intake Total 400 400 50 Output Total 300 Balance 100 400 50 Intake: Intake, IV Amount 400 400 50 Left Forearm 400 400 50 Output: Urine 300 Condom 300 Other: # Voids Condom 1 # Bowel Movements 0 - Medications Active Medications: Active Medications Generic Name Dose Route Start Last Admin Trade Name Freq PRN Reason Stop Dose Admin Amantadine HCl 100 mg 03/22/18 10:00 Symmetrel NG DAILY TETO Heparin Sodium (Porcine) 5,000 units 03/18/18 22:00 03/20/18 21:27 Heparin SC 5,000 units Q12 TETO Administration Sodium Chloride 1,000 mls @ 50 mls/hr 03/18/18 08:22 03/21/18 17:58 Sodium Chloride 0.9% IV 50 mls/hr .Q20H TETO Administration Lactic Acid 0 gm 03/20/18 18:00 03/21/18 17:58 Lac-Hydrin 12% Lotion (225 G) EXT 1 applic BID TETO Administration Pantoprazole Sodium 40 mg 03/18/18 10:00 03/21/18 10:16 Protonix Inj IVP 40 mg DAILY TETO Administration Rosuvastatin Calcium 10 mg 03/19/18 22:00 03/20/18 21:28 Crestor PO 10 mg HS TETO Administration - Patient Studies Lab Studies: Lab Studies 03/21/18 03/21/18 03/21/18 Range/Units 11:45 05:26 05:25 WBC 9.2 (4.8-10.8) K/uL RBC 4.04 L (4.40-5.90) Mil/uL Hgb 12.8 (12.0-18.0) g/dL Hct 38.4 (35.0-51.0) % MCV 94.9 H (80.0-94.0) fL MCH 31.6 H (27.0-31.0) pg MCHC 33.3 (33.0-37.0) g/dL RDW 15.0 H (11.5-14.5) % Plt Count 205 (130-400) K/uL MPV 9.2 (7.2-11.7) fL Neut % (Auto) 68.2 (50.0-75.0) % Lymph % (Auto) 22.7 (20.0-40.0) % York % (Auto) 8.8 (0.0-10.0) % Eos % (Auto) 0.0 (0.0-4.0) % Baso % (Auto) 0.3 (0.0-2.0) % Neut # (Auto) 6.3 (1.8-7.0) K/uL Lymph # (Auto) 2.1 (1.0-4.3) K/uL York # (Auto) 0.8 (0.0-0.8) K/uL Eos # (Auto) 0.0 (0.0-0.7) K/uL Baso # (Auto) 0.0 (0.0-0.2) K/uL Sodium 141 (132-148) mmol/L Potassium 3.5 L (3.6-5.2) mmol/L Chloride 113 H (98-107) mmol/L Carbon Dioxide 16 L (22-30) mmol/L Anion Gap 16 (10-20) BUN 20 (9-20) mg/dL Creatinine 0.9 (0.8-1.5) mg/dL Est GFR ( Amer) > 60 Est GFR (Non-Af Amer) > 60 POC Glucose (mg/dL) 125 H (65-110) mg/dL Random Glucose 108 (75-110) mg/dL Calcium 8.7 (8.6-10.4) mg/dl Phosphorus 2.5 (2.5-4.5) mg/dL Magnesium 2.0 (1.6-2.3) mg/dL Total Bilirubin 1.3 (0.2-1.3) mg/dL AST 27 (17-59) U/L ALT 24 (21-72) U/L Alkaline Phosphatase 73 (38-126) U/L Total Protein 6.2 L (6.3-8.3) g/dL Albumin 3.3 L (3.5-5.0) g/dL Globulin 2.9 (2.2-3.9) gm/dL Albumin/Globulin Ratio 1.1 (1.0-2.1) 03/21/18 03/20/18 Range/Units 04:56 23:51 WBC (4.8-10.8) K/uL RBC (4.40-5.90) Mil/uL Hgb (12.0-18.0) g/dL Hct (35.0-51.0) % MCV (80.0-94.0) fL MCH (27.0-31.0) pg MCHC (33.0-37.0) g/dL RDW (11.5-14.5) % Plt Count (130-400) K/uL MPV (7.2-11.7) fL Neut % (Auto) (50.0-75.0) % Lymph % (Auto) (20.0-40.0) % York % (Auto) (0.0-10.0) % Eos % (Auto) (0.0-4.0) % Baso % (Auto) (0.0-2.0) % Neut # (Auto) (1.8-7.0) K/uL Lymph # (Auto) (1.0-4.3) K/uL York # (Auto) (0.0-0.8) K/uL Eos # (Auto) (0.0-0.7) K/uL Baso # (Auto) (0.0-0.2) K/uL Sodium (132-148) mmol/L Potassium (3.6-5.2) mmol/L Chloride (98-107) mmol/L Carbon Dioxide (22-30) mmol/L Anion Gap (10-20) BUN (9-20) mg/dL Creatinine (0.8-1.5) mg/dL Est GFR ( Amer) Est GFR (Non-Af Amer) POC Glucose (mg/dL) 107 87 (65-110) mg/dL Random Glucose (75-110) mg/dL Calcium (8.6-10.4) mg/dl Phosphorus (2.5-4.5) mg/dL Magnesium (1.6-2.3) mg/dL Total Bilirubin (0.2-1.3) mg/dL AST (17-59) U/L ALT (21-72) U/L Alkaline Phosphatase (38-126) U/L Total Protein (6.3-8.3) g/dL Albumin (3.5-5.0) g/dL Globulin (2.2-3.9) gm/dL Albumin/Globulin Ratio (1.0-2.1) Laboratory Results - last 24 hr 03/20/18 03/21/18 03/21/18 23:51 04:56 05:25 WBC 9.2 RBC 4.04 L Hgb 12.8 Hct 38.4 MCV 94.9 H MCH 31.6 H MCHC 33.3 RDW 15.0 H Plt Count 205 MPV 9.2 Neut % (Auto) 68.2 Lymph % (Auto) 22.7 York % (Auto) 8.8 Eos % (Auto) 0.0 Baso % (Auto) 0.3 Neut # (Auto) 6.3 Lymph # (Auto) 2.1 York # (Auto) 0.8 Eos # (Auto) 0.0 Baso # (Auto) 0.0 Sodium Potassium Chloride Carbon Dioxide Anion Gap BUN Creatinine Est GFR ( Amer) Est GFR (Non-Af Amer) POC Glucose (mg/dL) 87 107 Random Glucose Calcium Phosphorus Magnesium Total Bilirubin AST ALT Alkaline Phosphatase Total Protein Albumin Globulin Albumin/Globulin Ratio 03/21/18 03/21/18 05:26 11:45 WBC RBC Hgb Hct MCV MCH MCHC RDW Plt Count MPV Neut % (Auto) Lymph % (Auto) York % (Auto) Eos % (Auto) Baso % (Auto) Neut # (Auto) Lymph # (Auto) York # (Auto) Eos # (Auto) Baso # (Auto) Sodium 141 Potassium 3.5 L Chloride 113 H Carbon Dioxide 16 L Anion Gap 16 BUN 20 Creatinine 0.9 Est GFR ( Amer) > 60 Est GFR (Non-Af Amer) > 60 POC Glucose (mg/dL) 125 H Random Glucose 108 Calcium 8.7 Phosphorus 2.5 Magnesium 2.0 Total Bilirubin 1.3 AST 27 ALT 24 Alkaline Phosphatase 73 Total Protein 6.2 L Albumin 3.3 L Globulin 2.9 Albumin/Globulin Ratio 1.1 Critical Care Progress Note - Nutrition Nutrition: Nutrition Category Date Time Status NPO Diet [DIET] Diets 03/17/18 Dinner Active Attending/Attestation - Attestation I have personally seen and examined this patient.: Yes I have fully participated in the care of the patient.: Yes I have reviewed all pertinent clinical information: Yes Notes (Text): 03/21/18 18:23 patient seen and examined in the intensive care unit. Assessment and plan as per resident note Case discussed with neurology DVT prophylaxis Start amantadine
--- NOTE | 2018-03-21 12:44 | CARD ---
APPROVED REPORT Date of service: 03/20/2018 EXAM: Two-dimensional and M-mode echocardiogram with Doppler and color Doppler. Other Information Quality : GoodRhythm : INDICATION Atrial Fibrillation 2D DIMENSIONS IVSd1.3 (0.7-1.1cm)LVDd4.2 (3.9-5.9cm) PWd1.3 (0.7-1.1cm)LA [id number] (18-58mL) LVDs2.7 (2.5-4.0cm)FS (%) 35.6 % LVEF (%)65.4 (>50%)LVEF (Lyons's)69.67 % M-Mode DIMENSIONS Left Atrium (MM)4.40 (2.5-4.0cm)IVSd1.16 (0.7-1.1cm) Aortic Root3.67 (2.2-3.7cm)LVDd5.39 (4.0-5.6cm) Aortic Cusp Exc.2.04 (1.5-2.0cm)PWd1.06 (0.7-1.1cm) FS (%) 25 %LVDs4.06 (2.0-3.8cm) LVEF (%)60 (>50%) Mitral Valve MV E Bhyvkdie77.0cm/sMV A Gbcndwhr29.1cm/sE/A ratio3.4 TDI Lateral E' Peak V9.32cm/sMedial E' Peak V9.38cm/sE/Lateral E'10.2 E/Medial E'10.1 Tricuspid Valve TR Peak Vlisgxsp841gu/sTR Peak [id number] LEFT VENTRICLE The left ventricle is normal size. There is mild concentric left ventricular hypertrophy. The left ventricular function is normal. The left ventricular ejection fraction is within the normal range. No regional wall motion abnormalities noted. Indeterminate. LV filling pressure is probably increased No left ventricle thrombus noted on this study. There is no ventricular septal defect visualized. There is no left ventricular aneurysm. There is no mass noted in the left ventricle. RIGHT VENTRICLE The right ventricle is normal size. There is normal right ventricular wall thickness. The right ventricular systolic function is normal. ATRIA The left atrium is moderately dilated. The right atrium size is normal. The interatrial septum is intact with no evidence for an atrial septal defect. AORTIC VALVE The aortic valve is normal in structure and function. No aortic regurgitation is present. There is no aortic valvular stenosis. There is no aortic valvular vegetation. MITRAL VALVE The mitral valve is normal in structure and function. There is no evidence of mitral valve prolapse. There is no mitral valve stenosis. Mitral regurgitation is mild. TRICUSPID VALVE The tricuspid valve is normal in structure and function. There is mild to moderate tricuspid regurgitation. Right ventricular systolic pressure is estimated at 50-60 mmHg. . There is no tricuspid valve prolapse or vegetation. There is no tricuspid valve stenosis. PULMONIC VALVE The pulmonary valve is normal in structure and function. There is no pulmonic valvular regurgitation. There is no pulmonic valvular stenosis. GREAT VESSELS The aortic root is normal in size. The ascending aorta is normal in size. The pulmonary artery is normal. The IVC is normal in size and collapses >50% with inspiration. PERICARDIAL EFFUSION The pericardium appears normal. There is no pleural effusion. <Conclusion> There is mild concentric left ventricular hypertrophy. The left ventricular function is normal. The left ventricular ejection fraction is within the normal range. No regional wall motion abnormalities noted. Indeterminate. LV filling pressure is probably increased The left atrium is moderately dilated. Mitral regurgitation is mild. There is mild to moderate tricuspid regurgitation. Right ventricular systolic pressure is estimated at 50-60 mmHg. .
--- NOTE | 2018-03-21 17:11 | CP.PCM.PN ---
Subjective - Date & Time of Evaluation Date of Evaluation: 03/21/18 Time of Evaluation: 16:15 - Subjective Subjective: Neurology Consultation Follow-Up Note: Mr. Srivastava was evaluated this afternoon in the ICU with Dr. Lozada. Today he is more awake and alert compared to yesterday. He was OOB to chair during our eval. ROS limited as pt's family is not at bedside and he remains nonverbal. Attempts to answer questions and follow commands. Objective - Vital Signs/Intake and Output Vital Signs (last 24 hours): Temp Pulse Resp BP Pulse Ox 98.9 F 80 22 143/77 96 03/21/18 04:00 03/21/18 14:02 03/21/18 14:02 03/21/18 14:02 03/21/18 14:02 Intake and Output: 03/21/18 03/21/18 06:59 18:59 Intake Total 660 450 Output Total 300 Balance 360 450 - Medications Medications: Current Medications Heparin Sodium (Porcine) (Heparin) 5,000 units SC Q12 [facility] Last Admin: 03/20/18 21:27 Dose: 5,000 units Sodium Chloride (Sodium Chloride 0.9%) 1,000 mls @ 50 mls/hr IV .Q20H TETO Last Admin: 03/20/18 22:13 Dose: 50 mls/hr Lactic Acid (Lac-Hydrin 12% Lotion (225 G)) 0 gm EXT BID TETO Last Admin: 03/21/18 10:16 Dose: 1 applic Pantoprazole Sodium (Protonix Inj) 40 mg IVP DAILY TETO Last Admin: 03/21/18 10:16 Dose: 40 mg Rosuvastatin Calcium (Crestor) 10 mg PO HS TETO Last Admin: 03/20/18 21:28 Dose: 10 mg - Labs Labs: 03/21/18 05:25 03/21/18 05:26 PT 14.2 SECONDS (9.7-12.2) H 03/17/18 17:40 INR 1.3 03/17/18 17:40 APTT 30 SECONDS (21-34) 03/18/18 05:48 - Constitutional Appears: No Acute Distress - Head Exam Head Exam: ATRAUMATIC, NORMAL INSPECTION, NORMOCEPHALIC - Eye Exam Eye Exam: EOMI - ENT Exam ENT Exam: Mucous Membranes Moist - Neck Exam Neck Exam: Full ROM - Respiratory Exam Respiratory Exam: NORMAL BREATHING PATTERN - Cardiovascular Exam Cardiovascular Exam: REGULAR RHYTHM (on tele monitor ) - Neurological Exam Neurological Exam: Alert, Awake, Motor Sensory Deficit Neuro motor strength exam: Left Upper Extremity: 2, Left Lower Extremity: 2/ - Psychiatric Exam Additional comments: pt nonverbal at this time - Skin Skin Exam: Normal Color Assessment and Plan - Assessment and Plan (Free Text) Assessment: Mr. Esparza is an 87 y/o male who is s/p acute ischemic stroke and right MCA thrombectomy. Plan: Imaging: -CT Head (03/21/18): results pending -CT Head (03/20/18): Large right MCA territory infarct which has now undergone hemorrhagic conversion. The hemorrhagic epicenter is located the right anterior basal ganglia as detailed above. Persistent mild mass-effect. Extensive chronic white matter ischemic changes. -CT Head (03/20/18): large RMCA infarct has now undergone hemorrhagic conversion; hemorrhagic epicenter is located right anterior basal ganglia; persistent mild mass effect; extensive chronic white matter ischemic changes -CT Head (03/18/18): There are acute infarct changes seen in the right basal ganglia with mild mass-effect that result in compression of the right frontal horn and anterior body of the right lateral ventricle. No definitive evidence of acute hemorrhage seen at this time. Apparent resolution previously noted dense right MCA sign. Extensive and severe diffuse/confluent chronic white matter ischemic changes with extension into the white matter tracts of both basal ganglia. Moderate to fairly significant central volume loss not withstanding mass-effect on the right lateral ventricle as above. -CT Head (03/17/18): There is an apparent hyperdense right-sided MCA sign consistent with thrombus in the right middle cerebral artery. Significant diffuse/confluent chronic appearing low-attenuation changes seen extending from the periventricular into the deep and subcortical white matter both cerebral hemispheres. Findings may represent chronic sequela of small vessel disease. There also appears to be some extension of these changes into the white matter tracts of both basal nuclei. Note that the possibility of a small hyperacute infarct cannot be excluded on this study. Fairly significant central volume loss evidenced by disproportionate enlargement of the ventricles compared sulci.. -CTA head and Neck: There is abrupt cut off enhancement within the mid to distal right mid middle cerebral artery with no significant enhancement of distal branch vessels consistent with thrombus in this vessel. These findings were discussed with Dr. Lyon at approximately 5:45 p.m. with written down and read back verification. Enlarged heterogeneous right lobe thyroid gland with multiple small on varying sized hypodense nodules. There also appear to be 1 or 2 small nodules left lobe thyroid gland. Follow-up thyroid ultrasound recommended. - Discontinued Aspirin 300mg MI. Will not start Eliquis in 2 days due to hemorrhage. - ICU team held Heparin 5000u SC Q12 due to hemorrhage. - Continue SCDs for DVT prophylaxis for now. - NGT remains in place as patient continues to fail swallow eval---was pocketing food in cheeks during eval. - Continue PT/ST/OT - New onset afib--Dr. Myers consulted Case discussed with Dr. Lozada and with overhauler, Dr. Mccabe.
--- NOTE | 2018-03-21 17:29 | CT ---
Date of service: 03/21/2018 PROCEDURE: CT HEAD WITHOUT CONTRAST. HISTORY: intracerebral hemorrhage, evaluate for change COMPARISON: March 18, 2018 and March 20, 2018. TECHNIQUE: Axial computed tomography images were obtained through the head/brain without intravenous contrast. Supplemental Coronal and Sagittal projections created and reviewed. Radiation dose: Total exam DLP = 2038.29 mGy-cm. This CT exam was performed using one or more of the following dose reduction techniques: Automated exposure control, adjustment of the mA and/or kV according to patient size, and/or use of iterative reconstruction technique. FINDINGS: HEMORRHAGE: Acute hemorrhage in the right basal ganglia. This is similar to that seen on the most recent CT scan approximately 24 hr ago. BRAIN: Stable appearance of territorial cortical infarction right MCA. Underlying severe cortical atrophy. VENTRICLES: No evidence of intraventricular hemorrhage. CALVARIUM: Unremarkable. PARANASAL SINUSES: Unremarkable as visualized. No significant inflammatory changes. MASTOID AIR CELLS: Unremarkable as visualized. No inflammatory changes. OTHER FINDINGS: None. IMPRESSION: Stable appearance of acute hemorrhagic process centered in the right basal ganglia. Stable findings related to right MCA infarct. Limitations of the current examination: Patient related motion induced artifact.
[2018-03-21] MEDS: Sodium Chloride 0.9% 1,000 ML IV SCH (17:58)
[2018-03-21 19:23] LABS: URINE BILIRUBIN NEGATIVE (NEGATIVE); URINE BLOOD 1+ (NEGATIVE); URINE CLARITY Clear (Clear); URINE COLOR Yellow (YELLOW); URINE GLUCOSE (UA) NORMAL (Normal); URINE LEUKOCYTE ESTERASE NEG Leu/uL (Negative); URINE PROTEIN 1+ mg/dL (NEGATIVE)
--- NOTE | 2018-03-22 00:32 | CP.PCM.PN ---
Subjective - Subjective Subjective: dictated Objective - Vital Signs/Intake and Output Vital Signs (last 24 hours): Temp Pulse Resp BP Pulse Ox 99.7 F H 85 29 H 150/78 96 03/22/18 00:00 03/22/18 00:02 03/22/18 00:02 03/22/18 00:02 03/22/18 00:02 Intake and Output: 03/21/18 03/22/18 18:59 06:59 Intake Total 780 630 Output Total 545 Balance 780 85 - Medications Medications: Current Medications Amantadine HCl (Symmetrel) 100 mg NG DAILY [facility] Heparin Sodium (Porcine) (Heparin) 5,000 units SC Q12 [facility] Last Admin: 03/20/18 21:27 Dose: 5,000 units Sodium Chloride (Sodium Chloride 0.9%) 1,000 mls @ 50 mls/hr IV .Q20H [facility] Last Admin: 03/21/18 17:58 Dose: 50 mls/hr Lactic Acid (Lac-Hydrin 12% Lotion (225 G)) 0 gm EXT BID [facility] Last Admin: 03/21/18 17:58 Dose: 1 applic Pantoprazole Sodium (Protonix Inj) 40 mg IVP DAILY [facility] Last Admin: 03/21/18 10:16 Dose: 40 mg Rosuvastatin Calcium (Crestor) 10 mg PO HS [facility] Last Admin: 03/21/18 22:31 Dose: 10 mg - Labs Labs: 03/21/18 05:25 03/21/18 05:26 PT 14.2 SECONDS (9.7-12.2) H 03/17/18 17:40 INR 1.3 03/17/18 17:40 APTT 30 SECONDS (21-34) 03/18/18 05:48
[2018-03-22 05:50] LABS: BASO % 0.3 % (0.0-2.0); EOS % 0.1 % (0.0-4.0); LYMPH # 1.3 K/uL (1.0-4.3); LYMPH % 15.5 % (20.0-40.0); MEAN CELL VOLUME 95.4 fL (80.0-94.0); MEAN CORPUSCULAR HEMOGLOBIN 32.4 pg (27.0-31.0); MEAN CORPUSCULAR HGB CONC 33.9 g/dL (33.0-37.0); MEAN PLATELET VOLUME 9.2 fL (7.2-11.7); MONO # 0.7 K/uL (0.0-0.8); MONO % 9.1 % (0.0-10.0); NEUT # 6.1 K/uL (1.8-7.0); NRBC % 0.1 % (0.0-2.0); RBC 4.02 Mil/uL (4.40-5.90); RED CELL DISTRIBUTION WIDTH 15.6 % (11.5-14.5); WHITE BLOOD COUNT 8.1 K/uL (4.8-10.8)
[2018-03-22 06:04] LABS: ALB/GLOB RATIO 1.1 (1.0-2.1); ALBUMIN 3.1 g/dL (3.5-5.0); ALT/SGPT 22 U/L (21-72); AST/SGOT 20 U/L (17-59); BLOOD UREA NITROGEN 26 mg/dL (9-20); CALCIUM 8.6 mg/dl (8.6-10.4); GFR NON-AFRICAN AMERICAN > 60
[2018-03-22] MEDS ORDERED: Potassium Phosphate 15 MMOLE in Sodium Chloride 0.9% 250 ML IVPB ONE (08:30)
[2018-03-22] MEDS: Ammonium Lactate 12% Lotion (225 g) EXT SCH ×2 (09:01→18:00)
--- NOTE | 2018-03-22 10:11 | CP.CCUPN ---
<Teja Mott - Last Filed: 03/22/18 10:13> CCU Subjective - Physician Review Subjective (Free Text): 03/22/18 10:09 Teja Mott PGY1 Progress Note for Dr. Mccabe Pt was examined at bedside this morning. He remains nonverbal, unable to obey commands. He is sleepy but arrousable. ROS is not attainable at this time. As per nursing report, no acute events overnight. CCU Objective - Vital Signs / Intake & Output Vital Signs (Last 4 hours): Vital Signs Temp Pulse Resp BP Pulse Ox 03/22/18 09:03 78 28 H 141/75 97 03/22/18 08:48 100.8 F H 03/22/18 08:02 77 29 H 135/72 97 03/22/18 08:00 100.8 F H 03/22/18 07:02 81 27 H 134/67 96 Intake and Output (Last 8hrs): Intake & Output 03/21/18 03/22/18 03/22/18 22:59 06:59 14:59 Intake Total 770 850 322 Output Total 370 500 135 Balance 400 350 187 Intake: Intake, IV Amount 460 400 142 Left Antecubital 10 Left Forearm 450 400 142 Tube Feeding 310 450 180 Output: Urine 370 500 135 Urethral ([place]) 370 500 135 Other: # Bowel Movements 1 0 - Physical Exam Head: Positive for: Atraumatic, Normocephalic Pupils: Positive for: PERRL Extroacular Muscles: Positive for: EOMI Conjunctiva: Positive for: Normal Mouth: Positive for: Moist Mucous Membranes Pharnyx: Positive for: Normal Neck: Positive for: Normal Range of Motion Respiratory/Chest: Positive for: Clear to Auscultation, Good Air Exchange Cardiovascular: Positive for: Regular Rate and Rhythm, Murmurs Abdomen: Positive for: Normal Bowel Sounds. Negative for: Tenderness, Distention Upper Extremity: Positive for: Normal Inspection Lower Extremity: Positive for: Other (PVD, ecchymosis) Neurological: Positive for: Other (left facial droop. 4/5 LUE, 4/5 LLE) Psychiatric: Positive for: Alert - Medications Active Medications: Active Medications Generic Name Dose Route Start Last Admin Trade Name Freq PRN Reason Stop Dose Admin Amantadine HCl 100 mg 03/22/18 10:00 Symmetrel NG DAILY [facility] Heparin Sodium (Porcine) 5,000 units 03/18/18 22:00 03/20/18 21:27 Heparin SC 5,000 units Q12 [facility] Administration Potassium Phosphate 15 mmole/ 255 mls @ 42.5 mls/hr 03/22/18 08:30 03/22/18 08:47 Sodium Chloride IVPB 03/22/18 14:29 42.5 mls/hr ONCE ONE Administration Insulin Human Regular 0 unit 03/22/18 12:00 Novolin R SC Q6H [facility] Protocol Lactic Acid 0 gm 03/20/18 18:00 03/22/18 09:01 Lac-Hydrin 12% Lotion (225 G) EXT 1 applic BID [facility] Administration Pantoprazole Sodium 40 mg 03/18/18 10:00 03/22/18 09:00 Protonix Inj IVP 40 mg DAILY [facility] Administration Rosuvastatin Calcium 10 mg 03/19/18 22:00 03/21/18 22:31 Crestor PO 10 mg HS [facility] Administration - Patient Studies Lab Studies: Lab Studies 03/22/18 03/22/18 03/21/18 Range/Units 05:45 05:45 19:25 WBC 8.1 (4.8-10.8) K/uL RBC 4.02 L (4.40-5.90) Mil/uL Hgb 13.0 (12.0-18.0) g/dL Hct 38.4 (35.0-51.0) % MCV 95.4 H (80.0-94.0) fL MCH 32.4 H (27.0-31.0) pg MCHC 33.9 (33.0-37.0) g/dL RDW 15.6 H (11.5-14.5) % Plt Count 191 (130-400) K/uL MPV 9.2 (7.2-11.7) fL Neut % (Auto) 75.0 (50.0-75.0) % Lymph % (Auto) 15.5 L (20.0-40.0) % [place] % (Auto) 9.1 (0.0-10.0) % Eos % (Auto) 0.1 (0.0-4.0) % Baso % (Auto) 0.3 (0.0-2.0) % Neut # (Auto) 6.1 (1.8-7.0) K/uL Lymph # (Auto) 1.3 (1.0-4.3) K/uL [place] # (Auto) 0.7 (0.0-0.8) K/uL Eos # (Auto) 0.0 (0.0-0.7) K/uL Baso # (Auto) 0.0 (0.0-0.2) K/uL Sodium 143 (132-148) mmol/L Potassium 3.8 (3.6-5.2) mmol/L Chloride 113 H (98-107) mmol/L Carbon Dioxide 21 L (22-30) mmol/L Anion Gap 12 (10-20) BUN 26 H (9-20) mg/dL Creatinine 0.8 (0.8-1.5) mg/dL Est GFR ( Amer) > 60 Est GFR (Non-Af Amer) > 60 POC Glucose (mg/dL) (65-110) mg/dL Random Glucose 259 H (75-110) mg/dL Calcium 8.6 (8.6-10.4) mg/dl Phosphorus 1.6 L (2.5-4.5) mg/dL Magnesium 2.2 (1.6-2.3) mg/dL Total Bilirubin 1.2 (0.2-1.3) mg/dL AST 20 (17-59) U/L ALT 22 (21-72) U/L Alkaline Phosphatase 64 (38-126) U/L Total Protein 6.0 L (6.3-8.3) g/dL Albumin 3.1 L (3.5-5.0) g/dL Globulin 2.9 (2.2-3.9) gm/dL Albumin/Globulin Ratio 1.1 (1.0-2.1) Urine Color Yellow (YELLOW) Urine Clarity Clear (Clear) Urine pH 5.0 (5.0-8.0) Ur Specific [place] 1.026 (1.003-1.030) Urine Protein 1+ H (NEGATIVE) mg/dL Urine Glucose (UA) Normal (Normal) mg/dL Urine Ketones 2+ H (NEGATIVE) mg/dL Urine Blood 1+ H (NEGATIVE) Urine Nitrate Negative (NEGATIVE) Urine Bilirubin Negative (NEGATIVE) Urine Urobilinogen 2.0 (0.2-1.0) mg/dL Ur Leukocyte Esterase Neg (Negative) [place]/uL Urine WBC (Auto) 3 (0-5) /hpf Urine RBC (Auto) 26 H (0-3) /hpf 03/21/18 Range/Units 11:45 WBC (4.8-10.8) K/uL RBC (4.40-5.90) Mil/uL Hgb (12.0-18.0) g/dL Hct (35.0-51.0) % MCV (80.0-94.0) fL MCH (27.0-31.0) pg MCHC (33.0-37.0) g/dL RDW (11.5-14.5) % Plt Count (130-400) K/uL MPV (7.2-11.7) fL Neut % (Auto) (50.0-75.0) % Lymph % (Auto) (20.0-40.0) % [place] % (Auto) (0.0-10.0) % Eos % (Auto) (0.0-4.0) % Baso % (Auto) (0.0-2.0) % Neut # (Auto) (1.8-7.0) K/uL Lymph # (Auto) (1.0-4.3) K/uL [place] # (Auto) (0.0-0.8) K/uL Eos # (Auto) (0.0-0.7) K/uL Baso # (Auto) (0.0-0.2) K/uL Sodium (132-148) mmol/L Potassium (3.6-5.2) mmol/L Chloride (98-107) mmol/L Carbon Dioxide (22-30) mmol/L Anion Gap (10-20) BUN (9-20) mg/dL Creatinine (0.8-1.5) mg/dL Est GFR ( Amer) Est GFR (Non-Af Amer) POC Glucose (mg/dL) 125 H (65-110) mg/dL Random Glucose (75-110) mg/dL Calcium (8.6-10.4) mg/dl Phosphorus (2.5-4.5) mg/dL Magnesium (1.6-2.3) mg/dL Total Bilirubin (0.2-1.3) mg/dL AST (17-59) U/L ALT (21-72) U/L Alkaline Phosphatase (38-126) U/L Total Protein (6.3-8.3) g/dL Albumin (3.5-5.0) g/dL Globulin (2.2-3.9) gm/dL Albumin/Globulin Ratio (1.0-2.1) Urine Color (YELLOW) Urine Clarity (Clear) Urine pH (5.0-8.0) Ur Specific [place] (1.003-1.030) Urine Protein (NEGATIVE) mg/dL Urine Glucose (UA) (Normal) mg/dL Urine Ketones (NEGATIVE) mg/dL Urine Blood (NEGATIVE) Urine Nitrate (NEGATIVE) Urine Bilirubin (NEGATIVE) Urine Urobilinogen (0.2-1.0) mg/dL Ur Leukocyte Esterase (Negative) [place]/uL Urine WBC (Auto) (0-5) /hpf Urine RBC (Auto) (0-3) /hpf Laboratory Results - last 24 hr 03/21/18 03/21/18 03/22/18 11:45 19:25 05:45 WBC 8.1 RBC 4.02 L Hgb 13.0 Hct 38.4 MCV 95.4 H MCH 32.4 H MCHC 33.9 RDW 15.6 H Plt Count 191 MPV 9.2 Neut % (Auto) 75.0 Lymph % (Auto) 15.5 L [place] % (Auto) 9.1 Eos % (Auto) 0.1 Baso % (Auto) 0.3 Neut # (Auto) 6.1 Lymph # (Auto) 1.3 [place] # (Auto) 0.7 Eos # (Auto) 0.0 Baso # (Auto) 0.0 Sodium Potassium Chloride Carbon Dioxide Anion Gap BUN Creatinine Est GFR ( Amer) Est GFR (Non-Af Amer) POC Glucose (mg/dL) 125 H Random Glucose Calcium Phosphorus Magnesium Total Bilirubin AST ALT Alkaline Phosphatase Total Protein Albumin Globulin Albumin/Globulin Ratio Urine Color Yellow Urine Clarity Clear Urine pH 5.0 Ur Specific [place] 1.026 Urine Protein 1+ H Urine Glucose (UA) Normal Urine Ketones 2+ H Urine Blood 1+ H Urine Nitrate Negative Urine Bilirubin Negative Urine Urobilinogen 2.0 Ur Leukocyte Esterase Neg Urine WBC (Auto) 3 Urine RBC (Auto) 26 H 03/22/18 05:45 WBC RBC Hgb Hct MCV MCH MCHC RDW Plt Count MPV Neut % (Auto) Lymph % (Auto) [place] % (Auto) Eos % (Auto) Baso % (Auto) Neut # (Auto) Lymph # (Auto) [place] # (Auto) Eos # (Auto) Baso # (Auto) Sodium 143 Potassium 3.8 Chloride 113 H Carbon Dioxide 21 L Anion Gap 12 BUN 26 H Creatinine 0.8 Est GFR ( Amer) > 60 Est GFR (Non-Af Amer) > 60 POC Glucose (mg/dL) Random Glucose 259 H Calcium 8.6 Phosphorus 1.6 L Magnesium 2.2 Total Bilirubin 1.2 AST 20 ALT 22 Alkaline Phosphatase 64 Total Protein 6.0 L Albumin 3.1 L Globulin 2.9 Albumin/Globulin Ratio 1.1 Urine Color Urine Clarity Urine pH Ur Specific [place] Urine Protein Urine Glucose (UA) Urine Ketones Urine Blood Urine Nitrate Urine Bilirubin Urine Urobilinogen Ur Leukocyte Esterase Urine WBC (Auto) Urine RBC (Auto) Fingerstick Blood Sugar Results: 286 Review of Systems - Review of Systems Systems not reviewed;Unavailable: Altered Mental Status Critical Care Progress Note - Nutrition Nutrition: Nutrition Category Date Time Status NPO Diet [DIET] Diets 03/17/18 Dinner Active Assessment/Plan - Assessment and Plan (Free Text) Assessment: 87yo M PMHx PVD w/ IVC filter, BPH, presenting with L sided weakness to the ED and was called a code stroke. Pt found to have acute ischemic stroke, s/p right MCA thrombectomy on 03/17. CT brain 03/20 showed hemorrhagic conversion, CT 03/21 stable from prior. Anticoagulation restarted with heparin. Plan: Neuro - acute ischemic stroke with hemorrhagic conversion - s/p R MCA thrombectomy 03/17 - CT brain 03/20: large R MCA infarct undergone hemorrhagic conversion w/ epicenter in R anterior basal ganglia. extensive chronic white matter ischemic changes - CT brain 03/21: stable acute hemorrhage in R basal ganglia. - [id number] VASc score: 4 - HAS-BLED score: 3 - crestor 10 PO HS - heparin 5000u SC q12h - amantadine 100 NG daily - hold eliquis, as per neuro - d/c ASA - Neuro consulted, Dr. Derik velazquez appreciated Cardio - new onset A.fib - hold anticoagulation at this time, as per cardio - crestor 10 PO HS - Cardio consulted, Dr. Myers- marcus appreciated Pulm - maintain SpO2>92% - no active issues GI - pt failed speech/swallow eval - NG tube in place - jevity feeds - protonix 40mg IV daily Heme - hold eliquis - heparin 5000u SC q12h ID - no active issues Endo - Glucose 259 - low dose insulin sliding scale q6h - maintain euglycemia PPX GI: protonix 40 DVT: SCDs, heparin 5000u SC q12 Jevity feeds Pt seen and case reviewed with Dr. Mccabe <Harvey Mccabe - Last Filed: 03/22/18 17:15> CCU Subjective - Physician Review Critical Care Time Spent (in minutes): 35 CCU Objective - Vital Signs / Intake & Output Vital Signs (Last 4 hours): Vital Signs Pulse Resp BP Pulse Ox 03/22/18 16:02 76 32 H 135/72 98 03/22/18 15:02 78 24 126/74 97 03/22/18 14:02 75 27 H 140/85 97 Intake and Output (Last 8hrs): Intake & Output 03/22/18 03/22/18 03/22/18 06:59 14:59 22:59 Intake Total 850 832 120 Output Total 500 135 Balance 350 697 120 Intake: Intake, IV Amount 400 352 Left Forearm 400 352 Tube Feeding 450 480 120 Output: Urine 500 135 Urethral ([place]) 500 135 Other: # Bowel Movements 0 1 - Medications Active Medications: Active Medications Generic Name Dose Route Start Last Admin Trade Name Freq PRN Reason Stop Dose Admin Amantadine HCl 100 mg 03/22/18 10:00 03/22/18 11:10 Symmetrel NG 100 mg DAILY [facility] Administration Heparin Sodium (Porcine) 5,000 units 03/18/18 22:00 03/22/18 10:21 Heparin SC 5,000 units Q12 [facility] Administration Piperacillin Sod/Tazobactam 100 mls @ 200 mls/hr 03/22/18 18:00 Sod 3.375 gm/ Sodium Chloride IVPB Q8H [facility] Protocol Insulin Human Regular 0 unit 03/22/18 12:00 03/22/18 12:51 Novolin R SC 2 units Q6H [facility] Administration Protocol Lactic Acid 0 gm 03/20/18 18:00 03/22/18 09:01 Lac-Hydrin 12% Lotion (225 G) EXT 1 applic BID [facility] Administration Methylphenidate HCl 5 mg 03/23/18 10:00 Ritalin PO DAILY [facility] Pantoprazole Sodium 40 mg 03/18/18 10:00 03/22/18 09:00 Protonix Inj IVP 40 mg DAILY [facility] Administration Rosuvastatin Calcium 10 mg 03/19/18 22:00 03/21/18 22:31 Crestor PO 10 mg HS [facility] Administration - Patient Studies Lab Studies: Lab Studies 03/22/18 03/22/18 03/22/18 Range/Units 11:35 05:45 05:45 WBC 8.1 (4.8-10.8) K/uL RBC 4.02 L (4.40-5.90) Mil/uL Hgb 13.0 (12.0-18.0) g/dL Hct 38.4 (35.0-51.0) % MCV 95.4 H (80.0-94.0) fL MCH 32.4 H (27.0-31.0) pg MCHC 33.9 (33.0-37.0) g/dL RDW 15.6 H (11.5-14.5) % Plt Count 191 (130-400) K/uL MPV 9.2 (7.2-11.7) fL Neut % (Auto) 75.0 (50.0-75.0) % Lymph % (Auto) 15.5 L (20.0-40.0) % [place] % (Auto) 9.1 (0.0-10.0) % Eos % (Auto) 0.1 (0.0-4.0) % Baso % (Auto) 0.3 (0.0-2.0) % Neut # (Auto) 6.1 (1.8-7.0) K/uL Lymph # (Auto) 1.3 (1.0-4.3) K/uL [place] # (Auto) 0.7 (0.0-0.8) K/uL Eos # (Auto) 0.0 (0.0-0.7) K/uL Baso # (Auto) 0.0 (0.0-0.2) K/uL Sodium 143 (132-148) mmol/L Potassium 3.8 (3.6-5.2) mmol/L Chloride 113 H (98-107) mmol/L Carbon Dioxide 21 L (22-30) mmol/L Anion Gap 12 (10-20) BUN 26 H (9-20) mg/dL Creatinine 0.8 (0.8-1.5) mg/dL Est GFR ( Amer) > 60 Est GFR (Non-Af Amer) > 60 POC Glucose (mg/dL) 241 H (65-110) mg/dL Random Glucose 259 H (75-110) mg/dL Calcium 8.6 (8.6-10.4) mg/dl Phosphorus 1.6 L (2.5-4.5) mg/dL Magnesium 2.2 (1.6-2.3) mg/dL Total Bilirubin 1.2 (0.2-1.3) mg/dL AST 20 (17-59) U/L ALT 22 (21-72) U/L Alkaline Phosphatase 64 (38-126) U/L Total Protein 6.0 L (6.3-8.3) g/dL Albumin 3.1 L (3.5-5.0) g/dL Globulin 2.9 (2.2-3.9) gm/dL Albumin/Globulin Ratio 1.1 (1.0-2.1) Urine Color (YELLOW) Urine Clarity (Clear) Urine pH (5.0-8.0) Ur Specific [place] (1.003-1.030) Urine Protein (NEGATIVE) mg/dL Urine Glucose (UA) (Normal) mg/dL Urine Ketones (NEGATIVE) mg/dL Urine Blood (NEGATIVE) Urine Nitrate (NEGATIVE) Urine Bilirubin (NEGATIVE) Urine Urobilinogen (0.2-1.0) mg/dL Ur Leukocyte Esterase (Negative) [place]/uL Urine WBC (Auto) (0-5) /hpf Urine RBC (Auto) (0-3) /hpf 03/22/18 03/21/18 03/21/18 Range/Units 05:06 23:30 19:25 WBC (4.8-10.8) K/uL RBC (4.40-5.90) Mil/uL Hgb (12.0-18.0) g/dL Hct (35.0-51.0) % MCV (80.0-94.0) fL MCH (27.0-31.0) pg MCHC (33.0-37.0) g/dL RDW (11.5-14.5) % Plt Count (130-400) K/uL MPV (7.2-11.7) fL Neut % (Auto) (50.0-75.0) % Lymph % (Auto) (20.0-40.0) % [place] % (Auto) (0.0-10.0) % Eos % (Auto) (0.0-4.0) % Baso % (Auto) (0.0-2.0) % Neut # (Auto) (1.8-7.0) K/uL Lymph # (Auto) (1.0-4.3) K/uL [place] # (Auto) (0.0-0.8) K/uL Eos # (Auto) (0.0-0.7) K/uL Baso # (Auto) (0.0-0.2) K/uL Sodium (132-148) mmol/L Potassium (3.6-5.2) mmol/L Chloride (98-107) mmol/L Carbon Dioxide (22-30) mmol/L Anion Gap (10-20) BUN (9-20) mg/dL Creatinine (0.8-1.5) mg/dL Est GFR ( Amer) Est GFR (Non-Af Amer) POC Glucose (mg/dL) 286 H 219 H (65-110) mg/dL Random Glucose (75-110) mg/dL Calcium (8.6-10.4) mg/dl Phosphorus (2.5-4.5) mg/dL Magnesium (1.6-2.3) mg/dL Total Bilirubin (0.2-1.3) mg/dL AST (17-59) U/L ALT (21-72) U/L Alkaline Phosphatase (38-126) U/L Total Protein (6.3-8.3) g/dL Albumin (3.5-5.0) g/dL Globulin (2.2-3.9) gm/dL Albumin/Globulin Ratio (1.0-2.1) Urine Color Yellow (YELLOW) Urine Clarity Clear (Clear) Urine pH 5.0 (5.0-8.0) Ur Specific [place] 1.026 (1.003-1.030) Urine Protein 1+ H (NEGATIVE) mg/dL Urine Glucose (UA) Normal (Normal) mg/dL Urine Ketones 2+ H (NEGATIVE) mg/dL Urine Blood 1+ H (NEGATIVE) Urine Nitrate Negative (NEGATIVE) Urine Bilirubin Negative (NEGATIVE) Urine Urobilinogen 2.0 (0.2-1.0) mg/dL Ur Leukocyte Esterase Neg (Negative) [place]/uL Urine WBC (Auto) 3 (0-5) /hpf Urine RBC (Auto) 26 H (0-3) /hpf 03/21/18 Range/Units 17:37 WBC (4.8-10.8) K/uL RBC (4.40-5.90) Mil/uL Hgb (12.0-18.0) g/dL Hct (35.0-51.0) % MCV (80.0-94.0) fL MCH (27.0-31.0) pg MCHC (33.0-37.0) g/dL RDW (11.5-14.5) % Plt Count (130-400) K/uL MPV (7.2-11.7) fL Neut % (Auto) (50.0-75.0) % Lymph % (Auto) (20.0-40.0) % [place] % (Auto) (0.0-10.0) % Eos % (Auto) (0.0-4.0) % Baso % (Auto) (0.0-2.0) % Neut # (Auto) (1.8-7.0) K/uL Lymph # (Auto) (1.0-4.3) K/uL [place] # (Auto) (0.0-0.8) K/uL Eos # (Auto) (0.0-0.7) K/uL Baso # (Auto) (0.0-0.2) K/uL Sodium (132-148) mmol/L Potassium (3.6-5.2) mmol/L Chloride (98-107) mmol/L Carbon Dioxide (22-30) mmol/L Anion Gap (10-20) BUN (9-20) mg/dL Creatinine (0.8-1.5) mg/dL Est GFR ( Amer) Est GFR (Non-Af Amer) POC Glucose (mg/dL) 171 H (65-110) mg/dL Random Glucose (75-110) mg/dL Calcium (8.6-10.4) mg/dl Phosphorus (2.5-4.5) mg/dL Magnesium (1.6-2.3) mg/dL Total Bilirubin (0.2-1.3) mg/dL AST (17-59) U/L ALT (21-72) U/L Alkaline Phosphatase (38-126) U/L Total Protein (6.3-8.3) g/dL Albumin (3.5-5.0) g/dL Globulin (2.2-3.9) gm/dL Albumin/Globulin Ratio (1.0-2.1) Urine Color (YELLOW) Urine Clarity (Clear) Urine pH (5.0-8.0) Ur Specific [place] (1.003-1.030) Urine Protein (NEGATIVE) mg/dL Urine Glucose (UA) (Normal) mg/dL Urine Ketones (NEGATIVE) mg/dL Urine Blood (NEGATIVE) Urine Nitrate (NEGATIVE) Urine Bilirubin (NEGATIVE) Urine Urobilinogen (0.2-1.0) mg/dL Ur Leukocyte Esterase (Negative) [place]/uL Urine WBC (Auto) (0-5) /hpf Urine RBC (Auto) (0-3) /hpf Laboratory Results - last 24 hr 03/21/18 03/21/18 03/21/18 17:37 19:25 23:30 WBC RBC Hgb Hct MCV MCH MCHC RDW Plt Count MPV Neut % (Auto) Lymph % (Auto) [place] % (Auto) Eos % (Auto) Baso % (Auto) Neut # (Auto) Lymph # (Auto) [place] # (Auto) Eos # (Auto) Baso # (Auto) Sodium Potassium Chloride Carbon Dioxide Anion Gap BUN Creatinine Est GFR ( Amer) Est GFR (Non-Af Amer) POC Glucose (mg/dL) 171 H 219 H Random Glucose Calcium Phosphorus Magnesium Total Bilirubin AST ALT Alkaline Phosphatase Total Protein Albumin Globulin Albumin/Globulin Ratio Urine Color Yellow Urine Clarity Clear Urine pH 5.0 Ur Specific [place] 1.026 Urine Protein 1+ H Urine Glucose (UA) Normal Urine Ketones 2+ H Urine Blood 1+ H Urine Nitrate Negative Urine Bilirubin Negative Urine Urobilinogen 2.0 Ur Leukocyte Esterase Neg Urine WBC (Auto) 3 Urine RBC (Auto) 26 H 03/22/18 03/22/18 03/22/18 05:06 05:45 05:45 WBC 8.1 RBC 4.02 L Hgb 13.0 Hct 38.4 MCV 95.4 H MCH 32.4 H MCHC 33.9 RDW 15.6 H Plt Count 191 MPV 9.2 Neut % (Auto) 75.0 Lymph % (Auto) 15.5 L [place] % (Auto) 9.1 Eos % (Auto) 0.1 Baso % (Auto) 0.3 Neut # (Auto) 6.1 Lymph # (Auto) 1.3 [place] # (Auto) 0.7 Eos # (Auto) 0.0 Baso # (Auto) 0.0 Sodium 143 Potassium 3.8 Chloride 113 H Carbon Dioxide 21 L Anion Gap 12 BUN 26 H Creatinine 0.8 Est GFR ( Amer) > 60 Est GFR (Non-Af Amer) > 60 POC Glucose (mg/dL) 286 H Random Glucose 259 H Calcium 8.6 Phosphorus 1.6 L Magnesium 2.2 Total Bilirubin 1.2 AST 20 ALT 22 Alkaline Phosphatase 64 Total Protein 6.0 L Albumin 3.1 L Globulin 2.9 Albumin/Globulin Ratio 1.1 Urine Color Urine Clarity Urine pH Ur Specific [place] Urine Protein Urine Glucose (UA) Urine Ketones Urine Blood Urine Nitrate Urine Bilirubin Urine Urobilinogen Ur Leukocyte Esterase Urine WBC (Auto) Urine RBC (Auto) 03/22/18 11:35 WBC RBC Hgb Hct MCV MCH MCHC RDW Plt Count MPV Neut % (Auto) Lymph % (Auto) [place] % (Auto) Eos % (Auto) Baso % (Auto) Neut # (Auto) Lymph # (Auto) [place] # (Auto) Eos # (Auto) Baso # (Auto) Sodium Potassium Chloride Carbon Dioxide Anion Gap BUN Creatinine Est GFR ( Amer) Est GFR (Non-Af Amer) POC Glucose (mg/dL) 241 H Random Glucose Calcium Phosphorus Magnesium Total Bilirubin AST ALT Alkaline Phosphatase Total Protein Albumin Globulin Albumin/Globulin Ratio Urine Color Urine Clarity Urine pH Ur Specific [place] Urine Protein Urine Glucose (UA) Urine Ketones Urine Blood Urine Nitrate Urine Bilirubin Urine Urobilinogen Ur Leukocyte Esterase Urine WBC (Auto) Urine RBC (Auto) Critical Care Progress Note - Nutrition Nutrition: Nutrition Category Date Time Status NPO Diet [DIET] Diets 03/17/18 Dinner Active Attending/Attestation - Attestation I have personally seen and examined this patient.: Yes I have fully participated in the care of the patient.: Yes I have reviewed all pertinent clinical information: Yes Notes (Text): 03/22/18 17:14 patient seen and examined in the intensive care unit. Patient remains lethargic Seen by neurology and started on modafinil Continue present treatment and NG tube feeding DVT prophylaxis Continue antibiotics
--- NOTE | 2018-03-22 10:53 | CP.PCM.PN ---
<Yolis Loo - Last Filed: 03/22/18 17:01> Subjective - Date & Time of Evaluation Date of Evaluation: 03/22/18 Time of Evaluation: 10:53 - Subjective Subjective: Progress note for Dr. Lozada Patient was seen and examined at bedside. Patient was oob to chair, nonverbal and lethargic. Patient would not cooperate or follow commands. ROS not obtained due to patients condition. Objective - Vital Signs/Intake and Output Vital Signs (last 24 hours): Temp Pulse Resp BP Pulse Ox 100.8 F H 78 28 H 141/75 97 03/22/18 08:48 03/22/18 09:03 03/22/18 09:03 03/22/18 09:03 03/22/18 09:03 Intake and Output: 03/22/18 03/22/18 06:59 18:59 Intake Total 1280 322 Output Total 870 135 Balance 410 187 - Medications Medications: Current Medications Amantadine HCl (Symmetrel) 100 mg NG DAILY [facility] Heparin Sodium (Porcine) (Heparin) 5,000 units SC Q12 TETO Last Admin: 03/22/18 10:21 Dose: 5,000 units Potassium Phosphate 15 mmole/ (Sodium Chloride) 255 mls @ 42.5 mls/hr IVPB ONCE ONE Stop: 03/22/18 14:29 Last Admin: 03/22/18 08:47 Dose: 42.5 mls/hr Insulin Human Regular (Novolin R) 0 unit SC Q6H TETO; Protocol Lactic Acid (Lac-Hydrin 12% Lotion (225 G)) 0 gm EXT BID [facility] Last Admin: 03/22/18 09:01 Dose: 1 applic Pantoprazole Sodium (Protonix Inj) 40 mg IVP DAILY [facility] Last Admin: 03/22/18 09:00 Dose: 40 mg Rosuvastatin Calcium (Crestor) 10 mg PO HS TETO Last Admin: 03/21/18 22:31 Dose: 10 mg - Labs Labs: 03/22/18 05:45 03/22/18 05:45 PT 14.2 SECONDS (9.7-12.2) H 03/17/18 17:40 INR 1.3 03/17/18 17:40 APTT 30 SECONDS (21-34) 03/18/18 05:48 - Additional Findings Additional findings: - Head Exam Head Exam: NORMAL INSPECTION - Eye Exam Eye Exam: EOMI - ENT Exam ENT Exam: Mucous Membranes Dry, NGT in place - Respiratory Exam Respiratory Exam: NORMAL BREATHING PATTERN. absent: Respiratory Distress - Cardiovascular Exam Cardiovascular Exam: Irregular Rhythm, +S1, +S2 - Extremities Exam Extremities Exam: absent: Full ROM Additional comments: Motor/sensory not assessed as patient does not follow com mands - Neurological Exam Neurological Exam: Lethargic), Motor/sensory not assessed as patient does not follow commands; Reflexes Normal. absent: Alert - Psychiatric Exam Additional comments: Lethargic - Skin Skin Exam: Normal Color, Warm Assessment and Plan - Assessment and Plan (Free Text) Plan: Patient is an 87 y/o male who is s/p acute ischemic stroke and right MCA thrombectomy. Imaging: -CT Head (03/21/18): stable appearance of acute hemorrhagic process centered in right basal ganglia; stable finding related to right MCA infarct -CT Head (03/20/18): Large right MCA territory infarct which has now undergone hemorrhagic conversion. The hemorrhagic epicenter is located the right anterior basal ganglia as detailed above. Persistent mild mass-effect. Extensive chronic white matter ischemic changes. -CT Head (03/20/18): large RMCA infarct has now undergone hemorrhagic conversion; hemorrhagic epicenter is located right anterior basal ganglia; persistent mild mass effect; extensive chronic white matter ischemic changes -CT Head (03/18/18): There are acute infarct changes seen in the right basal ganglia with mild mass-effect that result in compression of the right frontal ho rn and anterior body of the right lateral ventricle. No definitive evidence of acute hemorrhage seen at this time. Apparent resolution previously noted dense right MCA sign. Extensive and severe diffuse/confluent chronic white matter ischemic changes with extension into the white matter tracts of both basal ganglia. Moderate to fairly significant central volume loss not withstanding mass-effect on the right lateral ventricle as above. -CT Head (03/17/18): There is an apparent hyperdense right-sided MCA sign consistent with thrombus in the right middle cerebral artery. Significant diffuse/confluent chronic appearing low-attenuation changes seen extending from the periventricular into the deep and subcortical white matter both cerebral hemispheres. Findings may represent chronic sequela of small vessel disease. There also appears to be some extension of these changes into the white matter tracts of both basal nuclei. Note that the possibility of a small hyperacute infarct cannot be excluded on this study. Fairly significant central volume loss evidenced by disproportionate enlargement of the ventricles compared sulci.. -CTA head and Neck: There is abrupt cut off enhancement within the mid to distal right mid middle cerebral artery with no significant enhancement of distal bra nch vessels consistent with thrombus in this vessel. Enlarged heterogeneous right lobe thyroid gland with multiple small on varying sized hypodense nodules. There also appear to be 1 or 2 small nodules left lobe thyroid gland. Follow- up thyroid ultrasound recommended. Plan: - Discontinued Aspirin 300mg OK. Will not start Eliquis due to hemorrhage. - ICU team restarted Heparin 5000u SC Q12 as hemorrhage is stable per repeat head CT on 03/31/18 - Continue SCDs for DVT prophylaxis for now. - NGT remains in place as patient continues to fail swallow eval. - Continue PT/ST/OT - New onset afib--Dr. Myers consulted - Started Amatidine 100mg NG daily - Started Methylphenadate 5mg PO daily for lethargy Case discussed with Dr. Kierra Montero, PGY2 <Rafael Lozada - Last Filed: 03/22/18 17:16> Objective - Vital Signs/Intake and Output Vital Signs (last 24 hours): Temp Pulse Resp BP Pulse Ox 97.9 F 76 32 H 135/72 98 03/22/18 12:00 03/22/18 16:02 03/22/18 16:02 03/22/18 16:02 03/22/18 16:02 Intake and Output: 03/22/18 03/22/18 06:59 18:59 Intake Total 1280 952 Output Total 870 135 Balance 410 817 - Medications Medications: Current Medications Amantadine HCl (Symmetrel) 100 mg NG DAILY TETO Last Admin: 03/22/18 11:10 Dose: 100 mg Heparin Sodium (Porcine) (Heparin) 5,000 units SC Q12 TETO Last Admin: 03/22/18 10:21 Dose: 5,000 units Piperacillin Sod/Tazobactam (Sod 3.375 gm/ Sodium Chloride) 100 mls @ 200 mls/hr IVPB Q8H TETO; Protocol Insulin Human Regular (Novolin R) 0 unit SC Q6H TETO; Protocol Last Admin: 03/22/18 12:51 Dose: 2 units Lactic Acid (Lac-Hydrin 12% Lotion (225 G)) 0 gm EXT BID [facility] Last Admin: 03/22/18 09:01 Dose: 1 applic Methylphenidate HCl (Ritalin) 5 mg PO DAILY [facility] Pantoprazole Sodium (Protonix Inj) 40 mg IVP DAILY [facility] Last Admin: 03/22/18 09:00 Dose: 40 mg Rosuvastatin Calcium (Crestor) 10 mg PO HS [facility] Last Admin: 03/21/18 22:31 Dose: 10 mg - Labs Labs: 03/22/18 05:45 03/22/18 05:45 PT 14.2 SECONDS (9.7-12.2) H 03/17/18 17:40 INR 1.3 03/17/18 17:40 APTT 30 SECONDS (21-34) 03/18/18 05:48 Attending/Attestation - Attestation I have personally seen and examined this patient.: Yes I have fully participated in the care of the patient.: Yes I have reviewed all pertinent clinical information, including history, physical exam and plan: Yes Notes (Text): 03/22/18 17:16 I agree with the assessment and plan: the patient continues to be lethargic. - Started Amatidine 100mg NG daily - Started Methylphenadate 5mg PO daily for lethargy
[2018-03-22] MEDS: Amantadine 50 mg/5 ml Syrup (473 ml) NG SCH (11:10)
[2018-03-22] MEDS ORDERED: (Novolin R) Insulin Human Regular 100 units/ml vial SC SCH (11:30)
--- NOTE | 2018-03-22 11:31 | PN ---
DATE: 03/22/2018 SUBJECTIVE: Jonas Srivastava is more awake. He is sitting in the chair. He is afebrile. No shortness of breath. He has NG tube with left-sided weakness. PHYSICAL EXAMINATION: VITAL SIGNS: Blood pressure 134/67, pulse 81, respiratory rate 20, temperature 98. LUNGS: Clear. CARDIOPULMONARY: S1, S2, regular. ABDOMEN: Soft. EXTREMITIES: Left-sided weakness. ASSESSMENT: 1. Cerebrovascular accident. 2. Urinary tract infection. 3. Cerebral sclerosis. PLAN: Physiotherapy, rehab, swallow eval. Monitor the patient. Wild Aponte MD
[2018-03-22] MEDS: (Novolin R) Insulin Human Regular 100 units/ml vial SC SCH ×2 (12:51→18:00)
--- NOTE | 2018-03-22 13:29 | RAD ---
Date of service: 03/22/2018 HISTORY: pt with rhonchi s/p CVA COMPARISON: No prior. FINDINGS: Interval placement NGT, the tip of which overlies left lateral upper abdomen. LUNGS: Mild bibasilar atelectasis right greater than left. Developing lower lobe infiltrates could be excluded with followup radiographs. PLEURA: No significant pleural effusion identified, no pneumothorax apparent. CARDIOVASCULAR: Minor aortic atherosclerotic calcification present. Cardiomegaly.. No pulmonary vascular congestion. OSSEOUS STRUCTURES: No significant abnormalities. VISUALIZED UPPER ABDOMEN: Normal. OTHER FINDINGS: None. IMPRESSION: Mild bibasilar atelectasis right greater than left. Developing lower lobe infiltrates could be excluded with followup radiographs.
[2018-03-22] MEDS: Piperacillin/Tazobact 3.375 GM in Sodium Chloride 100 ML IVPB SCH (18:00)
--- NOTE | 2018-03-22 21:50 | CP.PCM.PN ---
Subjective - Subjective Subjective: dictated Objective - Vital Signs/Intake and Output Vital Signs (last 24 hours): Temp Pulse Resp BP Pulse Ox 99.3 F 83 29 H 125/66 93 L 03/22/18 20:00 03/22/18 21:02 03/22/18 21:02 03/22/18 21:02 03/22/18 21:02 Intake and Output: 03/22/18 03/23/18 18:59 06:59 Intake Total 1172 200 Output Total 470 Balance 702 200 - Medications Medications: Current Medications Amantadine HCl (Symmetrel) 100 mg NG DAILY [facility] Last Admin: 03/22/18 11:10 Dose: 100 mg Heparin Sodium (Porcine) (Heparin) 5,000 units SC Q12 TETO Last Admin: 03/22/18 10:21 Dose: 5,000 units Piperacillin Sod/Tazobactam (Sod 3.375 gm/ Sodium Chloride) 100 mls @ 200 mls/hr IVPB Q8H TETO; Protocol Last Admin: 03/22/18 18:00 Dose: 200 mls/hr Insulin Human Regular (Novolin R) 0 unit SC Q6H TETO; Protocol Last Admin: 03/22/18 18:00 Dose: 2 units Lactic Acid (Lac-Hydrin 12% Lotion (225 G)) 0 gm EXT BID TETO Last Admin: 03/22/18 18:00 Dose: 1 applic Methylphenidate HCl (Ritalin) 5 mg PO DAILY TETO Pantoprazole Sodium (Protonix Inj) 40 mg IVP DAILY [facility] Last Admin: 03/22/18 09:00 Dose: 40 mg Rosuvastatin Calcium (Crestor) 10 mg PO HS [facility] Last Admin: 03/21/18 22:31 Dose: 10 mg - Labs Labs: 03/22/18 05:45 03/22/18 05:45 PT 14.2 SECONDS (9.7-12.2) H 03/17/18 17:40 INR 1.3 03/17/18 17:40 APTT 30 SECONDS (21-34) 03/18/18 05:48
--- NOTE | 2018-03-22 22:19 | CP.PCM.PN ---
Subjective - Date & Time of Evaluation Date of Evaluation: 03/22/18 Time of Evaluation: 15:15 - Subjective Subjective: Patient seen and evaluated Not in ditsress A Fib Physical Exam - Constitutional Appears: Confused - Head Exam Head Exam: NORMAL INSPECTION, NORMOCEPHALIC - Eye Exam Eye Exam: EOMI, Normal appearance, PERRL - ENT Exam ENT Exam: Mucous Membranes Dry - Respiratory Exam Respiratory Exam: Clear to Auscultation Bilateral - Cardiovascular Exam Cardiovascular Exam: Irregular Rhythm, +S1, +S2 - GI/Abdominal Exam GI & Abdominal Exam: Normal Bowel Sounds, Soft. absent: Distended, Tenderness - Extremities Exam Extremities exam: Positive for: normal inspection, pedal pulses present. Negative for: pedal edema, tenderness - Neurological Exam Neurological exam: Alert, Altered - Skin Skin Exam: Dry, Intact, Normal Color, Warm Assessment & Plan - Assessment and Plan (Free Text) Plan: Acute Ischemic Stroke s/p Right MCA Thrombectomy New Onset Atrial Fibrillation Management: - Due to hemorrhagic conversion, contraindicated to start AC - Continue to monitor Objective - Vital Signs/Intake and Output Vital Signs (last 24 hours): Temp Pulse Resp BP Pulse Ox 99.3 F 83 29 H 125/66 93 L 03/22/18 20:00 03/22/18 21:02 03/22/18 21:02 03/22/18 21:02 03/22/18 21:02 Intake and Output: 03/22/18 03/23/18 18:59 06:59 Intake Total 1172 200 Output Total 470 Balance 702 200 - Medications Medications: Current Medications Amantadine HCl (Symmetrel) 100 mg NG DAILY [facility] Last Admin: 03/22/18 11:10 Dose: 100 mg Heparin Sodium (Porcine) (Heparin) 5,000 units SC Q12 TETO Last Admin: 03/22/18 21:52 Dose: 5,000 units Piperacillin Sod/Tazobactam (Sod 3.375 gm/ Sodium Chloride) 100 mls @ 200 mls/hr IVPB Q8H TETO; Protocol Last Admin: 03/22/18 18:00 Dose: 200 mls/hr Insulin Human Regular (Novolin R) 0 unit SC Q6H TETO; Protocol Last Admin: 03/22/18 18:00 Dose: 2 units Lactic Acid (Lac-Hydrin 12% Lotion (225 G)) 0 gm EXT BID TETO Last Admin: 03/22/18 18:00 Dose: 1 applic Methylphenidate HCl (Ritalin) 5 mg PO DAILY TETO Pantoprazole Sodium (Protonix Inj) 40 mg IVP DAILY [facility] Last Admin: 03/22/18 09:00 Dose: 40 mg Rosuvastatin Calcium (Crestor) 10 mg PO HS [facility] Last Admin: 03/22/18 21:51 Dose: 10 mg - Labs Labs: 03/22/18 05:45 03/22/18 05:45 PT 14.2 SECONDS (9.7-12.2) H 03/17/18 17:40 INR 1.3 03/17/18 17:40 APTT 30 SECONDS (21-34) 03/18/18 05:48
[2018-03-22] MEDS ORDERED: Acetaminophen 650mg/20.3ml solution UD PO PRN (23:31)
[2018-03-23] MEDS: (Novolin R) Insulin Human Regular 100 units/ml vial SC SCH ×4 (00:18→18:02)
[2018-03-23] MEDS: Piperacillin/Tazobact 3.375 GM in Sodium Chloride 100 ML IVPB SCH ×3 (02:15→17:22)
--- NOTE | 2018-03-23 03:09 | PN ---
DATE: 03/22/2018 SUBJECTIVE: Jonas Srivastava is sitting in the chair with NG tube. He is nonverbal, and he gets drowsy at times. He is afebrile. No shortness of breath. He has hemorrhagic conversion of his right middle cerebral artery, stroke. No fever. PHYSICAL EXAMINATION: VITAL SIGNS: Blood pressure 125/66, pulse 78, respiratory rate 18, and temperature 98. LUNGS: Clear. CARDIOVASCULAR SYSTEM: S1 and S2 regular. ABDOMEN: Soft. Nontender. Bowel sounds are positive. ASSESSMENT: 1. Intracerebral bleed in the cerebrovascular accident with hemorrhagic conversion. 2. 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 3. Benign prostatic hyperplasia. PLAN: Continue neuro check, telemetry, physical therapy, rehab, NG tube, swallowing evaluation. If he cannot swallow, the patient will need PEG placement. Wild Aponte MD
[2018-03-23 06:10] LABS: BASO % 0.3 % (0.0-2.0); EOS % 0.4 % (0.0-4.0); HEMOGLOBIN 11.9 g/dL (12.0-18.0); LYMPH # 1.5 K/uL (1.0-4.3); LYMPH % 21.3 % (20.0-40.0); MEAN CELL VOLUME 97.1 fL (80.0-94.0); MEAN CORPUSCULAR HEMOGLOBIN 32.6 pg (27.0-31.0); MEAN CORPUSCULAR HGB CONC 33.5 g/dL (33.0-37.0); MEAN PLATELET VOLUME 9.4 fL (7.2-11.7); MONO # 0.7 K/uL (0.0-0.8); MONO % 9.4 % (0.0-10.0); NEUT # 4.8 K/uL (1.8-7.0); NEUT % 68.6 % (50.0-75.0); NRBC % 0.1 % (0.0-2.0); RBC 3.64 Mil/uL (4.40-5.90); RED CELL DISTRIBUTION WIDTH 15.4 % (11.5-14.5)
[2018-03-23 06:19] LABS: ALBUMIN 2.7 g/dL (3.5-5.0); ALT/SGPT 22 U/L (21-72); AST/SGOT 18 U/L (17-59); BLOOD UREA NITROGEN 31 mg/dL (9-20); CALCIUM 8.5 mg/dl (8.6-10.4); GFR NON-AFRICAN AMERICAN > 60
--- NOTE | 2018-03-23 07:09 | CP.CCUPN ---
<Edin Byers - Last Filed: 03/23/18 14:07> CCU Subjective - Physician Review Subjective (Free Text): 03/23/18 08:05 Patient seen and examined at bedside. No acute events overnight. Patient is more awake and alert today. Critical Care Time Spent (in minutes): 35 CCU Objective - Vital Signs / Intake & Output Vital Signs (Last 4 hours): Vital Signs Temp Pulse Resp BP Pulse Ox 03/23/18 06:00 69 32 H 97 03/23/18 05:03 80 33 H 105/59 L 96 03/23/18 05:00 71 25 H 96 03/23/18 04:02 80 32 H 96/61 L 96 03/23/18 04:00 99.3 F 77 26 H 95 Intake and Output (Last 8hrs): Intake & Output 03/22/18 03/23/18 03/23/18 22:59 06:59 14:59 Intake Total 700 640 Output Total 485 350 Balance 215 290 Intake: Intake, IV Amount 120 110 Left Antecubital 10 Left Forearm 110 100 Right Forearm 10 Tube Feeding 480 480 Other 100 50 Output: Urine 485 350 Urethral ([place]) 485 350 Other: # Bowel Movements 0 1 - Physical Exam Head: Positive for: Atraumatic, Normocephalic Pupils: Positive for: PERRL Extroacular Muscles: Positive for: EOMI Conjunctiva: Positive for: Normal Mouth: Positive for: Moist Mucous Membranes Pharnyx: Positive for: Normal Neck: Positive for: Normal Range of Motion Respiratory/Chest: Positive for: Clear to Auscultation, Good Air Exchange Cardiovascular: Positive for: Regular Rate and Rhythm, Murmurs Abdomen: Positive for: Normal Bowel Sounds. Negative for: Tenderness, Distention Upper Extremity: Positive for: Normal Inspection Lower Extremity: Positive for: Other (PVD, ecchymosis) Neurological: Positive for: Other (left facial droop. 4/5 LUE, 4/5 LLE) Psychiatric: Positive for: Alert - Medications Active Medications: Active Medications Generic Name Dose Route Start Last Admin Trade Name Freq PRN Reason Stop Dose Admin Acetaminophen 650 mg 03/22/18 23:31 03/22/18 23:47 Tylenol 650mg/20.3ml Solution Ud PO 650 mg Q4H PRN Administration Amantadine HCl 100 mg 03/22/18 10:00 12/05/18 11:10 Symmetrel NG 100 mg DAILY TETO Administration Heparin Sodium (Porcine) 5,000 units 03/18/18 22:00 03/22/18 21:52 Heparin SC 5,000 units Q12 TETO Administration Piperacillin Sod/Tazobactam 100 mls @ 200 mls/hr 03/22/18 18:00 03/23/18 02:15 Sod 3.375 gm/ Sodium Chloride IVPB 200 mls/hr Q8H TETO Administration Protocol Potassium Chloride 10 meq in 100 mls @ 100 mls/hr 03/23/18 07:15 Potassium Chloride 10 Meq/100 Ml IVPB 03/23/18 11:14 Q1H TETO Insulin Human Regular 0 unit 03/22/18 12:00 03/23/18 05:54 Novolin R SC 2 units Q6H TETO Administration Protocol Lactic Acid 0 gm 03/20/18 18:00 03/22/18 18:00 Lac-Hydrin 12% Lotion (225 G) EXT 1 applic BID TETO Administration Methylphenidate HCl 5 mg 03/23/18 10:00 Ritalin PO DAILY TETO Pantoprazole Sodium 40 mg 03/18/18 10:00 03/22/18 09:00 Protonix Inj IVP 40 mg DAILY TETO Administration Rosuvastatin Calcium 10 mg 03/19/18 22:00 03/22/18 21:51 Crestor PO 10 mg HS TETO Administration - Patient Studies Lab Studies: Microbiology Studies 03/21/18 Unknown Urine Culture - Final Urine,Catheterized No Growth (<1,000 CFU/ML) Lab Studies 03/23/18 03/23/18 03/22/18 Range/Units 05:49 05:49 17:45 WBC 7.0 (4.8-10.8) K/uL RBC 3.64 L (4.40-5.90) Mil/uL Hgb 11.9 L (12.0-18.0) g/dL Hct 35.4 (35.0-51.0) % MCV 97.1 H (80.0-94.0) fL MCH 32.6 H (27.0-31.0) pg MCHC 33.5 (33.0-37.0) g/dL RDW 15.4 H (11.5-14.5) % Plt Count 185 (130-400) K/uL MPV 9.4 (7.2-11.7) fL Neut % (Auto) 68.6 (50.0-75.0) % Lymph % (Auto) 21.3 (20.0-40.0) % [place] % (Auto) 9.4 (0.0-10.0) % Eos % (Auto) 0.4 (0.0-4.0) % Baso % (Auto) 0.3 (0.0-2.0) % Neut # (Auto) 4.8 (1.8-7.0) K/uL Lymph # (Auto) 1.5 (1.0-4.3) K/uL [place] # (Auto) 0.7 (0.0-0.8) K/uL Eos # (Auto) 0.0 (0.0-0.7) K/uL Baso # (Auto) 0.0 (0.0-0.2) K/uL Sodium 147 (132-148) mmol/L Potassium 3.3 L (3.6-5.2) mmol/L Chloride 116 H (98-107) mmol/L Carbon Dioxide 23 (22-30) mmol/L Anion Gap 12 (10-20) BUN 31 H (9-20) mg/dL Creatinine 0.9 (0.8-1.5) mg/dL Est GFR ( Amer) > 60 Est GFR (Non-Af Amer) > 60 POC Glucose (mg/dL) 228 H (65-110) mg/dL Random Glucose 223 H (75-110) mg/dL Calcium 8.5 L (8.6-10.4) mg/dl Phosphorus 1.8 L (2.5-4.5) mg/dL Magnesium 2.2 (1.6-2.3) mg/dL Total Bilirubin 1.0 (0.2-1.3) mg/dL AST 18 (17-59) U/L ALT 22 (21-72) U/L Alkaline Phosphatase 59 (38-126) U/L Total Protein 5.4 L (6.3-8.3) g/dL Albumin 2.7 L (3.5-5.0) g/dL Globulin 2.7 (2.2-3.9) gm/dL Albumin/Globulin Ratio 1.0 (1.0-2.1) 03/22/18 03/22/18 03/21/18 Range/Units 11:35 05:06 23:30 WBC (4.8-10.8) K/uL RBC (4.40-5.90) Mil/uL Hgb (12.0-18.0) g/dL Hct (35.0-51.0) % MCV (80.0-94.0) fL MCH (27.0-31.0) pg MCHC (33.0-37.0) g/dL RDW (11.5-14.5) % Plt Count (130-400) K/uL MPV (7.2-11.7) fL Neut % (Auto) (50.0-75.0) % Lymph % (Auto) (20.0-40.0) % [place] % (Auto) (0.0-10.0) % Eos % (Auto) (0.0-4.0) % Baso % (Auto) (0.0-2.0) % Neut # (Auto) (1.8-7.0) K/uL Lymph # (Auto) (1.0-4.3) K/uL [place] # (Auto) (0.0-0.8) K/uL Eos # (Auto) (0.0-0.7) K/uL Baso # (Auto) (0.0-0.2) K/uL Sodium (132-148) mmol/L Potassium (3.6-5.2) mmol/L Chloride (98-107) mmol/L Carbon Dioxide (22-30) mmol/L Anion Gap (10-20) BUN (9-20) mg/dL Creatinine (0.8-1.5) mg/dL Est GFR ( Amer) Est GFR (Non-Af Amer) POC Glucose (mg/dL) 241 H 286 H 219 H (65-110) mg/dL Random Glucose (75-110) mg/dL Calcium (8.6-10.4) mg/dl Phosphorus (2.5-4.5) mg/dL Magnesium (1.6-2.3) mg/dL Total Bilirubin (0.2-1.3) mg/dL AST (17-59) U/L ALT (21-72) U/L Alkaline Phosphatase (38-126) U/L Total Protein (6.3-8.3) g/dL Albumin (3.5-5.0) g/dL Globulin (2.2-3.9) gm/dL Albumin/Globulin Ratio (1.0-2.1) 03/21/18 Range/Units 17:37 WBC (4.8-10.8) K/uL RBC (4.40-5.90) Mil/uL Hgb (12.0-18.0) g/dL Hct (35.0-51.0) % MCV (80.0-94.0) fL MCH (27.0-31.0) pg MCHC (33.0-37.0) g/dL RDW (11.5-14.5) % Plt Count (130-400) K/uL MPV (7.2-11.7) fL Neut % (Auto) (50.0-75.0) % Lymph % (Auto) (20.0-40.0) % [place] % (Auto) (0.0-10.0) % Eos % (Auto) (0.0-4.0) % Baso % (Auto) (0.0-2.0) % Neut # (Auto) (1.8-7.0) K/uL Lymph # (Auto) (1.0-4.3) K/uL [place] # (Auto) (0.0-0.8) K/uL Eos # (Auto) (0.0-0.7) K/uL Baso # (Auto) (0.0-0.2) K/uL Sodium (132-148) mmol/L Potassium (3.6-5.2) mmol/L Chloride (98-107) mmol/L Carbon Dioxide (22-30) mmol/L Anion Gap (10-20) BUN (9-20) mg/dL Creatinine (0.8-1.5) mg/dL Est GFR ( Amer) Est GFR (Non-Af Amer) POC Glucose (mg/dL) 171 H (65-110) mg/dL Random Glucose (75-110) mg/dL Calcium (8.6-10.4) mg/dl Phosphorus (2.5-4.5) mg/dL Magnesium (1.6-2.3) mg/dL Total Bilirubin (0.2-1.3) mg/dL AST (17-59) U/L ALT (21-72) U/L Alkaline Phosphatase (38-126) U/L Total Protein (6.3-8.3) g/dL Albumin (3.5-5.0) g/dL Globulin (2.2-3.9) gm/dL Albumin/Globulin Ratio (1.0-2.1) Laboratory Results - last 24 hr 03/21/18 03/21/18 03/22/18 17:37 23:30 05:06 WBC RBC Hgb Hct MCV MCH MCHC RDW Plt Count MPV Neut % (Auto) Lymph % (Auto) [place] % (Auto) Eos % (Auto) Baso % (Auto) Neut # (Auto) Lymph # (Auto) [place] # (Auto) Eos # (Auto) Baso # (Auto) Sodium Potassium Chloride Carbon Dioxide Anion Gap BUN Creatinine Est GFR ( Amer) Est GFR (Non-Af Amer) POC Glucose (mg/dL) 171 H 219 H 286 H Random Glucose Calcium Phosphorus Magnesium Total Bilirubin AST ALT Alkaline Phosphatase Total Protein Albumin Globulin Albumin/Globulin Ratio 03/22/18 03/22/18 03/23/18 11:35 17:45 05:49 WBC 7.0 RBC 3.64 L Hgb 11.9 L Hct 35.4 MCV 97.1 H MCH 32.6 H MCHC 33.5 RDW 15.4 H Plt Count 185 MPV 9.4 Neut % (Auto) 68.6 Lymph % (Auto) 21.3 [place] % (Auto) 9.4 Eos % (Auto) 0.4 Baso % (Auto) 0.3 Neut # (Auto) 4.8 Lymph # (Auto) 1.5 [place] # (Auto) 0.7 Eos # (Auto) 0.0 Baso # (Auto) 0.0 Sodium Potassium Chloride Carbon Dioxide Anion Gap BUN Creatinine Est GFR ( Amer) Est GFR (Non-Af Amer) POC Glucose (mg/dL) 241 H 228 H Random Glucose Calcium Phosphorus Magnesium Total Bilirubin AST ALT Alkaline Phosphatase Total Protein Albumin Globulin Albumin/Globulin Ratio 03/23/18 05:49 WBC RBC Hgb Hct MCV MCH MCHC RDW Plt Count MPV Neut % (Auto) Lymph % (Auto) [place] % (Auto) Eos % (Auto) Baso % (Auto) Neut # (Auto) Lymph # (Auto) [place] # (Auto) Eos # (Auto) Baso # (Auto) Sodium 147 Potassium 3.3 L Chloride 116 H Carbon Dioxide 23 Anion Gap 12 BUN 31 H Creatinine 0.9 Est GFR ( Amer) > 60 Est GFR (Non-Af Amer) > 60 POC Glucose (mg/dL) Random Glucose 223 H Calcium 8.5 L Phosphorus 1.8 L Magnesium 2.2 Total Bilirubin 1.0 AST 18 ALT 22 Alkaline Phosphatase 59 Total Protein 5.4 L Albumin 2.7 L Globulin 2.7 Albumin/Globulin Ratio 1.0 Fingerstick Blood Sugar Results: 207 Critical Care Progress Note - Nutrition Nutrition: Nutrition Category Date Time Status NPO Diet [DIET] Diets 03/17/18 Dinner Active Assessment/Plan - Assessment and Plan (Free Text) Assessment: 87yo M PMHx PVD w/ IVC filter, BPH, presenting with L sided weakness to the ED and was called a code stroke. Pt found to have acute ischemic stroke, s/p right MCA thrombectomy on 03/17. CT brain 03/20 showed hemorrhagic conversion, CT 03/21 stable from prior. Anticoagulation restarted with heparin. Plan: Neuro Acute ischemic stroke with hemorrhagic conversion - s/p R MCA thrombectomy 03/17 - CT brain 03/20: large R MCA infarct undergone hemorrhagic conversion w/ epicenter in R anterior basal ganglia. extensive chronic white matter ischemic changes - CT brain 03/21: stable acute hemorrhage in R basal ganglia. - [id number] VASc score: 4 - HAS-BLED score: 3 - crestor 10 PO HS - heparin 5000u SC q12- held for possible PEG tube placement on 02/22 - amantadine 100 NG daily - hold eliquis, as per neuro - Neuro consulted, Dr. Derik velazquez appreciated Cardio Atrial Fibrillation - new onset - hold anticoagulation at this time, as per cardio - crestor 10 PO HS - Cardio consulted, Dr. Laurie velazquez appreciated Pulm Possible PNA - CXR (03/22): developing lower lobe infiltrates - Zosyn 3.375g IV Q8 (Started on 03/22) GI Dysphagia - pt failed speech/swallow eval - NG tube in place - Glucerna feeds - GI consulted, Dr. Drake- PEG tube placement, pending consent from sons - protonix 40mg IV daily Renal Hypokalemia, hypophasphatemia - Potassium repleted - Continue to monitor Heme - hold eliquis - heparin 5000u SC q12h ID - no active issues Endo DM-2 - low dose insulin sliding scale q6h - maintain euglycemia - glucerna tube feeds PPX GI: protonix 40 DVT: SCDs, heparin 5000u SC q12- held for possible PEG tube placement on 02/22 Pt seen and case reviewed with Dr. Edgar Byers <Lili Palm - Last Filed: 03/23/18 15:43> CCU Objective - Vital Signs / Intake & Output Vital Signs (Last 4 hours): Vital Signs Temp Pulse Resp BP Pulse Ox 03/23/18 14:02 79 35 H 130/68 95 03/23/18 14:00 75 29 H 97 03/23/18 13:02 86 16 126/75 97 03/23/18 13:00 74 11 L 98 03/23/18 12:02 114/68 03/23/18 12:00 99.7 F H 81 26 H 97 Intake and Output (Last 8hrs): Intake & Output 03/23/18 03/23/18 03/23/18 06:59 14:59 22:59 Intake Total 640 716 Output Total 350 175 Balance 290 541 Intake: Intake, IV Amount 110 296 Left Forearm 100 286 Right Forearm 10 10 Tube Feeding 480 420 Other 50 Output: Urine 350 175 Urethral ([place]) 350 175 Other: # Bowel Movements 1 - Medications Active Medications: Active Medications Generic Name Dose Route Start Last Admin Trade Name Freq PRN Reason Stop Dose Admin Acetaminophen 650 mg 03/22/18 23:31 03/22/18 23:47 Tylenol 650mg/20.3ml Solution Ud PO 650 mg Q4H PRN Administration Piperacillin Sod/Tazobactam 100 mls @ 200 mls/hr 03/22/18 18:00 03/23/18 09:13 Sod 3.375 gm/ Sodium Chloride IVPB 200 mls/hr Q8H TETO Administration Protocol Insulin Human Regular 0 unit 03/22/18 12:00 03/23/18 11:50 Novolin R SC 1 units Q6H TETO Administration Protocol Lactic Acid 0 gm 03/20/18 18:00 03/23/18 09:09 Lac-Hydrin 12% Lotion (225 G) EXT 1 applic BID TETO Administration Methylphenidate HCl 5 mg 03/23/18 10:00 03/23/18 09:13 Ritalin PO 5 mg DAILY TETO Administration Pantoprazole Sodium 40 mg 03/18/18 10:00 03/23/18 09:09 Protonix Inj IVP 40 mg DAILY TETO Administration Rosuvastatin Calcium 10 mg 03/19/18 22:00 03/22/18 21:51 Crestor PO 10 mg HS TETO Administration - Patient Studies Lab Studies: Microbiology Studies 03/21/18 Unknown Urine Culture - Final Urine,Catheterized No Growth (<1,000 CFU/ML) Lab Studies 03/23/18 03/23/18 03/23/18 Range/Units 11:44 05:49 05:49 WBC 7.0 (4.8-10.8) K/uL RBC 3.64 L (4.40-5.90) Mil/uL Hgb 11.9 L (12.0-18.0) g/dL Hct 35.4 (35.0-51.0) % MCV 97.1 H (80.0-94.0) fL MCH 32.6 H (27.0-31.0) pg MCHC 33.5 (33.0-37.0) g/dL RDW 15.4 H (11.5-14.5) % Plt Count 185 (130-400) K/uL MPV 9.4 (7.2-11.7) fL Neut % (Auto) 68.6 (50.0-75.0) % Lymph % (Auto) 21.3 (20.0-40.0) % [place] % (Auto) 9.4 (0.0-10.0) % Eos % (Auto) 0.4 (0.0-4.0) % Baso % (Auto) 0.3 (0.0-2.0) % Neut # (Auto) 4.8 (1.8-7.0) K/uL Lymph # (Auto) 1.5 (1.0-4.3) K/uL [place] # (Auto) 0.7 (0.0-0.8) K/uL Eos # (Auto) 0.0 (0.0-0.7) K/uL Baso # (Auto) 0.0 (0.0-0.2) K/uL Sodium 147 (132-148) mmol/L Potassium 3.3 L (3.6-5.2) mmol/L Chloride 116 H (98-107) mmol/L Carbon Dioxide 23 (22-30) mmol/L Anion Gap 12 (10-20) BUN 31 H (9-20) mg/dL Creatinine 0.9 (0.8-1.5) mg/dL Est GFR ( Amer) > 60 Est GFR (Non-Af Amer) > 60 POC Glucose (mg/dL) 187 H (65-110) mg/dL Random Glucose 223 H (75-110) mg/dL Calcium 8.5 L (8.6-10.4) mg/dl Phosphorus 1.8 L (2.5-4.5) mg/dL Magnesium 2.2 (1.6-2.3) mg/dL Total Bilirubin 1.0 (0.2-1.3) mg/dL AST 18 (17-59) U/L ALT 22 (21-72) U/L Alkaline Phosphatase 59 (38-126) U/L Total Protein 5.4 L (6.3-8.3) g/dL Albumin 2.7 L (3.5-5.0) g/dL Globulin 2.7 (2.2-3.9) gm/dL Albumin/Globulin Ratio 1.0 (1.0-2.1) 03/23/18 03/22/18 03/22/18 Range/Units 05:15 23:56 17:45 WBC (4.8-10.8) K/uL RBC (4.40-5.90) Mil/uL Hgb (12.0-18.0) g/dL Hct (35.0-51.0) % MCV (80.0-94.0) fL MCH (27.0-31.0) pg MCHC (33.0-37.0) g/dL RDW (11.5-14.5) % Plt Count (130-400) K/uL MPV (7.2-11.7) fL Neut % (Auto) (50.0-75.0) % Lymph % (Auto) (20.0-40.0) % [place] % (Auto) (0.0-10.0) % Eos % (Auto) (0.0-4.0) % Baso % (Auto) (0.0-2.0) % Neut # (Auto) (1.8-7.0) K/uL Lymph # (Auto) (1.0-4.3) K/uL [place] # (Auto) (0.0-0.8) K/uL Eos # (Auto) (0.0-0.7) K/uL Baso # (Auto) (0.0-0.2) K/uL Sodium (132-148) mmol/L Potassium (3.6-5.2) mmol/L Chloride (98-107) mmol/L Carbon Dioxide (22-30) mmol/L Anion Gap (10-20) BUN (9-20) mg/dL Creatinine (0.8-1.5) mg/dL Est GFR ( Amer) Est GFR (Non-Af Amer) POC Glucose (mg/dL) 207 H 245 H 228 H (65-110) mg/dL Random Glucose (75-110) mg/dL Calcium (8.6-10.4) mg/dl Phosphorus (2.5-4.5) mg/dL Magnesium (1.6-2.3) mg/dL Total Bilirubin (0.2-1.3) mg/dL AST (17-59) U/L ALT (21-72) U/L Alkaline Phosphatase (38-126) U/L Total Protein (6.3-8.3) g/dL Albumin (3.5-5.0) g/dL Globulin (2.2-3.9) gm/dL Albumin/Globulin Ratio (1.0-2.1) 03/22/18 03/22/18 03/21/18 Range/Units 11:35 05:06 23:30 WBC (4.8-10.8) K/uL RBC (4.40-5.90) Mil/uL Hgb (12.0-18.0) g/dL Hct (35.0-51.0) % MCV (80.0-94.0) fL MCH (27.0-31.0) pg MCHC (33.0-37.0) g/dL RDW (11.5-14.5) % Plt Count (130-400) K/uL MPV (7.2-11.7) fL Neut % (Auto) (50.0-75.0) % Lymph % (Auto) (20.0-40.0) % [place] % (Auto) (0.0-10.0) % Eos % (Auto) (0.0-4.0) % Baso % (Auto) (0.0-2.0) % Neut # (Auto) (1.8-7.0) K/uL Lymph # (Auto) (1.0-4.3) K/uL [place] # (Auto) (0.0-0.8) K/uL Eos # (Auto) (0.0-0.7) K/uL Baso # (Auto) (0.0-0.2) K/uL Sodium (132-148) mmol/L Potassium (3.6-5.2) mmol/L Chloride (98-107) mmol/L Carbon Dioxide (22-30) mmol/L Anion Gap (10-20) BUN (9-20) mg/dL Creatinine (0.8-1.5) mg/dL Est GFR ( Amer) Est GFR (Non-Af Amer) POC Glucose (mg/dL) 241 H 286 H 219 H (65-110) mg/dL Random Glucose (75-110) mg/dL Calcium (8.6-10.4) mg/dl Phosphorus (2.5-4.5) mg/dL Magnesium (1.6-2.3) mg/dL Total Bilirubin (0.2-1.3) mg/dL AST (17-59) U/L ALT (21-72) U/L Alkaline Phosphatase (38-126) U/L Total Protein (6.3-8.3) g/dL Albumin (3.5-5.0) g/dL Globulin (2.2-3.9) gm/dL Albumin/Globulin Ratio (1.0-2.1) 03/21/18 Range/Units 17:37 WBC (4.8-10.8) K/uL RBC (4.40-5.90) Mil/uL Hgb (12.0-18.0) g/dL Hct (35.0-51.0) % MCV (80.0-94.0) fL MCH (27.0-31.0) pg MCHC (33.0-37.0) g/dL RDW (11.5-14.5) % Plt Count (130-400) K/uL MPV (7.2-11.7) fL Neut % (Auto) (50.0-75.0) % Lymph % (Auto) (20.0-40.0) % [place] % (Auto) (0.0-10.0) % Eos % (Auto) (0.0-4.0) % Baso % (Auto) (0.0-2.0) % Neut # (Auto) (1.8-7.0) K/uL Lymph # (Auto) (1.0-4.3) K/uL [place] # (Auto) (0.0-0.8) K/uL Eos # (Auto) (0.0-0.7) K/uL Baso # (Auto) (0.0-0.2) K/uL Sodium (132-148) mmol/L Potassium (3.6-5.2) mmol/L Chloride (98-107) mmol/L Carbon Dioxide (22-30) mmol/L Anion Gap (10-20) BUN (9-20) mg/dL Creatinine (0.8-1.5) mg/dL Est GFR ( Amer) Est GFR (Non-Af Amer) POC Glucose (mg/dL) 171 H (65-110) mg/dL Random Glucose (75-110) mg/dL Calcium (8.6-10.4) mg/dl Phosphorus (2.5-4.5) mg/dL Magnesium (1.6-2.3) mg/dL Total Bilirubin (0.2-1.3) mg/dL AST (17-59) U/L ALT (21-72) U/L Alkaline Phosphatase (38-126) U/L Total Protein (6.3-8.3) g/dL Albumin (3.5-5.0) g/dL Globulin (2.2-3.9) gm/dL Albumin/Globulin Ratio (1.0-2.1) Laboratory Results - last 24 hr 12/04/18 12/04/18 12/05/18 17:37 23:30 05:06 WBC RBC Hgb Hct MCV MCH MCHC RDW Plt Count MPV Neut % (Auto) Lymph % (Auto) [place] % (Auto) Eos % (Auto) Baso % (Auto) Neut # (Auto) Lymph # (Auto) [place] # (Auto) Eos # (Auto) Baso # (Auto) Sodium Potassium Chloride Carbon Dioxide Anion Gap BUN Creatinine Est GFR ( Amer) Est GFR (Non-Af Amer) POC Glucose (mg/dL) 171 H 219 H 286 H Random Glucose Calcium Phosphorus Magnesium Total Bilirubin AST ALT Alkaline Phosphatase Total Protein Albumin Globulin Albumin/Globulin Ratio 03/22/18 03/22/18 03/22/18 11:35 17:45 23:56 WBC RBC Hgb Hct MCV MCH MCHC RDW Plt Count MPV Neut % (Auto) Lymph % (Auto) [place] % (Auto) Eos % (Auto) Baso % (Auto) Neut # (Auto) Lymph # (Auto) [place] # (Auto) Eos # (Auto) Baso # (Auto) Sodium Potassium Chloride Carbon Dioxide Anion Gap BUN Creatinine Est GFR ( Amer) Est GFR (Non-Af Amer) POC Glucose (mg/dL) 241 H 228 H 245 H Random Glucose Calcium Phosphorus Magnesium Total Bilirubin AST ALT Alkaline Phosphatase Total Protein Albumin Globulin Albumin/Globulin Ratio 03/23/18 03/23/18 03/23/18 05:15 05:49 05:49 WBC 7.0 RBC 3.64 L Hgb 11.9 L Hct 35.4 MCV 97.1 H MCH 32.6 H MCHC 33.5 RDW 15.4 H Plt Count 185 MPV 9.4 Neut % (Auto) 68.6 Lymph % (Auto) 21.3 [place] % (Auto) 9.4 Eos % (Auto) 0.4 Baso % (Auto) 0.3 Neut # (Auto) 4.8 Lymph # (Auto) 1.5 [place] # (Auto) 0.7 Eos # (Auto) 0.0 Baso # (Auto) 0.0 Sodium 147 Potassium 3.3 L Chloride 116 H Carbon Dioxide 23 Anion Gap 12 BUN 31 H Creatinine 0.9 Est GFR ( Amer) > 60 Est GFR (Non-Af Amer) > 60 POC Glucose (mg/dL) 207 H Random Glucose 223 H Calcium 8.5 L Phosphorus 1.8 L Magnesium 2.2 Total Bilirubin 1.0 AST 18 ALT 22 Alkaline Phosphatase 59 Total Protein 5.4 L Albumin 2.7 L Globulin 2.7 Albumin/Globulin Ratio 1.0 03/23/18 11:44 WBC RBC Hgb Hct MCV MCH MCHC RDW Plt Count MPV Neut % (Auto) Lymph % (Auto) [place] % (Auto) Eos % (Auto) Baso % (Auto) Neut # (Auto) Lymph # (Auto) [place] # (Auto) Eos # (Auto) Baso # (Auto) Sodium Potassium Chloride Carbon Dioxide Anion Gap BUN Creatinine Est GFR ( Amer) Est GFR (Non-Af Amer) POC Glucose (mg/dL) 187 H Random Glucose Calcium Phosphorus Magnesium Total Bilirubin AST ALT Alkaline Phosphatase Total Protein Albumin Globulin Albumin/Globulin Ratio Critical Care Progress Note - Nutrition Nutrition: Nutrition Category Date Time Status NPO Diet [DIET] Diets 03/17/18 Dinner Active NPO Diet [DIET] Diets 03/24/18 Breakfast Active Assessment/Plan - Assessment and Plan (Free Text) Plan: Above patient seen and examined at bedside. PAtient has baseline motor deficit 2nd CVA. -Patient off anticoagulation 2nd CVA hemorharge conversion -RIsks of AC more than benefit in light of recent conversion; however patient alfso at risk of fuure CVA without anticaogulation -Failed speach and swallow -penidng PEG -PT/OT -OOB to chair - Date & Time Date: 03/23/18 Time: 15:42
[2018-03-23] MEDS ORDERED: Potassium Phosphate 15 MMOLE in Sodium Chloride 0.9% 250 ML IVPB ONE (09:00)
[2018-03-23] MEDS: Ammonium Lactate 12% Lotion (225 g) EXT SCH ×2 (09:09→17:19)
[2018-03-23] MEDS: Amantadine 50 mg/5 ml Syrup (473 ml) NG SCH (09:13)
--- NOTE | 2018-03-23 11:54 | CP.PCM.CON ---
History of Present Illness - History of Present Illness History of Present Illness: ASked to see pt for dysphagia. H/O BPH, DVT, filter- admitted with CVA- converted to hemorrhagic. NG tube is in place Review of Systems - Review of Systems Systems not reviewed;Unavailable: Altered Mental Status - Constitutional Constitutional: Fatigue, Weight Loss - EENT Nose/Mouth/Throat: absent: Bleeding Gums - Cardiovascular Cardiovascular: absent: Dyspnea, Palpitations - Respiratory Respiratory: absent: Wheezing - Gastrointestinal Gastrointestinal: Dysphagia. absent: Hematemesis, Hematochezia, Melena, Vomiting - Genitourinary Genitourinary: absent: Hematuria - Musculoskeletal Musculoskeletal: absent: Muscle Cramps - Integumentary Integumentary: absent: Jaundice - Neurological Neurological: Confusion. absent: Convulsions Past Patient History - Infectious Disease Hx of Infectious Diseases: None - Past Medical History & Family History Past Medical History?: Yes - Past Social History Smoking Status: Unknown If Ever Smoked - CARDIAC Hx Cardiac Disorders: Yes - PULMONARY Hx Respiratory Disorders: No - NEUROLOGICAL Hx Neurological Disorder: No - HEENT Hx HEENT Problems: Yes Other/Comment: hard of hearing both ears - RENAL Hx Chronic Kidney Disease: No - ENDOCRINE/METABOLIC Hx Endocrine Disorders: No - HEMATOLOGICAL/ONCOLOGICAL Hx Blood Disorders: No - INTEGUMENTARY Hx Dermatological Problems: No - MUSCULOSKELETAL/RHEUMATOLOGICAL Hx Falls: Yes - GASTROINTESTINAL Hx Gastrointestinal Disorders: No - GENITOURINARY/GYNECOLOGICAL Hx Genitourinary Disorders: Yes Hx Prostate Problems: Yes Other/Comment: BPH - PSYCHIATRIC Hx Substance Use: No - SURGICAL HISTORY Hx Surgeries: Yes Hx Herniorrhaphy: Yes - ANESTHESIA Hx Anesthesia: Yes Meds Allergies/Adverse Reactions: Allergies Allergy/AdvReac Type Severity Reaction Status Date / Time No Known Allergies Allergy Verified 03/18/18 03:59 - Medications Medications: Current Medications Acetaminophen (Tylenol 650mg/20.3ml Solution Ud) 650 mg PO Q4H PRN Last Admin: 03/22/18 23:47 Dose: 650 mg Amantadine HCl (Symmetrel) 100 mg NG DAILY [facility] Last Admin: 03/23/18 09:13 Dose: 100 mg Piperacillin Sod/Tazobactam (Sod 3.375 gm/ Sodium Chloride) 100 mls @ 200 mls/h r IVPB Q8H [facility]; Protocol Last Admin: 03/23/18 09:13 Dose: 200 mls/hr Potassium Phosphate 15 mmole/ (Sodium Chloride) 255 mls @ 42.5 mls/hr IVPB ONCE ONE Stop: 03/23/18 14:59 Last Admin: 03/23/18 09:46 Dose: 42.5 mls/hr Insulin Human Regular (Novolin R) 0 unit SC Q6H [facility]; Protocol Last Admin: 03/23/18 05:54 Dose: 2 units Lactic Acid (Lac-Hydrin 12% Lotion (225 G)) 0 gm EXT BID [facility] Last Admin: 03/23/18 09:09 Dose: 1 applic Methylphenidate HCl (Ritalin) 5 mg PO DAILY [facility] Last Admin: 03/23/18 09:13 Dose: 5 mg Pantoprazole Sodium (Protonix Inj) 40 mg IVP DAILY [facility] Last Admin: 03/23/18 09:09 Dose: 40 mg Rosuvastatin Calcium (Crestor) 10 mg PO HS [facility] Last Admin: 03/22/18 21:51 Dose: 10 mg Physical Exam - Constitutional Appears: Confused - Respiratory Exam Respiratory Exam: Clear to Auscultation Bilateral - Cardiovascular Exam Cardiovascular Exam: RRR - GI/Abdominal Exam GI & Abdominal Exam: Normal Bowel Sounds, Soft. absent: Distended, Guarding, Mass, Rebound, Tenderness - Neurological Exam Neurological exam: Alert Results - Vital Signs Recent Vital Signs: Last Vital Signs Temp 99.2 F 03/23/18 08:00 Pulse 77 03/23/18 11:02 Resp 24 03/23/18 11:02 BP 117/64 03/23/18 11:02 Pulse Ox 96 03/23/18 11:02 - Labs Result Diagrams: 03/23/18 05:49 03/23/18 05:49 Labs: Laboratory Results - last 24 hr 03/21/18 03/21/18 03/22/18 17:37 23:30 05:06 WBC RBC Hgb Hct MCV MCH MCHC RDW Plt Count MPV Neut % (Auto) Lymph % (Auto) [place] % (Auto) Eos % (Auto) Baso % (Auto) Neut # (Auto) Lymph # (Auto) [place] # (Auto) Eos # (Auto) Baso # (Auto) Sodium Potassium Chloride Carbon Dioxide Anion Gap BUN Creatinine Est GFR ( Amer) Est GFR (Non-Af Amer) POC Glucose (mg/dL) 171 H 219 H 286 H Random Glucose Calcium Phosphorus Magnesium Total Bilirubin AST ALT Alkaline Phosphatase Total Protein Albumin Globulin Albumin/Globulin Ratio 03/22/18 03/22/18 03/22/18 11:35 17:45 23:56 WBC RBC Hgb Hct MCV MCH MCHC RDW Plt Count MPV Neut % (Auto) Lymph % (Auto) [place] % (Auto) Eos % (Auto) Baso % (Auto) Neut # (Auto) Lymph # (Auto) [place] # (Auto) Eos # (Auto) Baso # (Auto) Sodium Potassium Chloride Carbon Dioxide Anion Gap BUN Creatinine Est GFR ( Amer) Est GFR (Non-Af Amer) POC Glucose (mg/dL) 241 H 228 H 245 H Random Glucose Calcium Phosphorus Magnesium Total Bilirubin AST ALT Alkaline Phosphatase Total Protein Albumin Globulin Albumin/Globulin Ratio 03/23/18 03/23/18 03/23/18 05:15 05:49 05:49 WBC 7.0 RBC 3.64 L Hgb 11.9 L Hct 35.4 MCV 97.1 H MCH 32.6 H MCHC 33.5 RDW 15.4 H Plt Count 185 MPV 9.4 Neut % (Auto) 68.6 Lymph % (Auto) 21.3 [place] % (Auto) 9.4 Eos % (Auto) 0.4 Baso % (Auto) 0.3 Neut # (Auto) 4.8 Lymph # (Auto) 1.5 [place] # (Auto) 0.7 Eos # (Auto) 0.0 Baso # (Auto) 0.0 Sodium 147 Potassium 3.3 L Chloride 116 H Carbon Dioxide 23 Anion Gap 12 BUN 31 H Creatinine 0.9 Est GFR ( Amer) > 60 Est GFR (Non-Af Amer) > 60 POC Glucose (mg/dL) 207 H Random Glucose 223 H Calcium 8.5 L Phosphorus 1.8 L Magnesium 2.2 Total Bilirubin 1.0 AST 18 ALT 22 Alkaline Phosphatase 59 Total Protein 5.4 L Albumin 2.7 L Globulin 2.7 Albumin/Globulin Ratio 1.0 03/23/18 11:44 WBC RBC Hgb Hct MCV MCH MCHC RDW Plt Count MPV Neut % (Auto) Lymph % (Auto) [place] % (Auto) Eos % (Auto) Baso % (Auto) Neut # (Auto) Lymph # (Auto) [place] # (Auto) Eos # (Auto) Baso # (Auto) Sodium Potassium Chloride Carbon Dioxide Anion Gap BUN Creatinine Est GFR ( Amer) Est GFR (Non-Af Amer) POC Glucose (mg/dL) 187 H Random Glucose Calcium Phosphorus Magnesium Total Bilirubin AST ALT Alkaline Phosphatase Total Protein Albumin Globulin Albumin/Globulin Ratio Assessment & Plan (1) BPH (benign prostatic hyperplasia) Status: Acute (2) Anemia Status: Acute (3) Dysphagia Assessment and Plan: after CVA. FAILED SPEECH SWALLOW EVAL. Needs PEG. Pt was seen with son Jonas, present. I explained PEG and need for PEG. Jonas does not agree to PEG at this time. REC- F/U with speech therapy. Will place PEG when family agrees. 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
--- NOTE | 2018-03-23 12:51 | CP.PCM.PN ---
Subjective - Date & Time of Evaluation Date of Evaluation: 03/23/18 Time of Evaluation: 15:54 - Subjective Subjective: Neurology Follow-Up Note: Patient was seen and examined at bedside in the ICU with Dr. Henley. Patient was oob to chair; continues to be nonverbal and lethargic. Patient would not cooperate or follow commands. ROS not obtained due to patients condition. Objective - Vital Signs/Intake and Output Vital Signs (last 24 hours): Temp Pulse Resp BP Pulse Ox 99.2 F 81 26 H 114/68 97 03/23/18 08:00 03/23/18 12:00 03/23/18 12:00 03/23/18 12:02 03/23/18 12:00 Intake and Output: 03/23/18 03/23/18 06:59 18:59 Intake Total 1000 472 Output Total 500 175 Balance 500 297 - Medications Medications: Current Medications Acetaminophen (Tylenol 650mg/20.3ml Solution Ud) 650 mg PO Q4H PRN Last Admin: 03/22/18 23:47 Dose: 650 mg Amantadine HCl (Symmetrel) 100 mg NG DAILY [facility] Last Admin: 03/23/18 09:13 Dose: 100 mg Piperacillin Sod/Tazobactam (Sod 3.375 gm/ Sodium Chloride) 100 mls @ 200 mls/hr IVPB Q8H [facility]; Protocol Last Admin: 03/23/18 09:13 Dose: 200 mls/hr Potassium Phosphate 15 mmole/ (Sodium Chloride) 255 mls @ 42.5 mls/hr IVPB ONCE ONE Stop: 03/23/18 14:59 Last Admin: 03/23/18 09:46 Dose: 42.5 mls/hr Insulin Human Regular (Novolin R) 0 unit SC Q6H [facility]; Protocol Last Admin: 03/23/18 11:50 Dose: 1 units Lactic Acid (Lac-Hydrin 12% Lotion (225 G)) 0 gm EXT BID [facility] Last Admin: 03/23/18 09:09 Dose: 1 applic Methylphenidate HCl (Ritalin) 5 mg PO DAILY [facility] Last Admin: 03/23/18 09:13 Dose: 5 mg Pantoprazole Sodium (Protonix Inj) 40 mg IVP DAILY [facility] Last Admin: 03/23/18 09:09 Dose: 40 mg Rosuvastatin Calcium (Crestor) 10 mg PO HS [facility] Last Admin: 12/05/18 21:51 Dose: 10 mg - Labs Labs: 03/23/18 05:49 03/23/18 05:49 PT 14.2 SECONDS (9.7-12.2) H 03/17/18 17:40 INR 1.3 03/17/18 17:40 APTT 30 SECONDS (21-34) 03/18/18 05:48 - Head Exam Head Exam: NORMAL INSPECTION - Eye Exam Eye Exam: EOMI - ENT Exam ENT Exam: Mucous Membranes Dry Additional comments: NGT in place - Respiratory Exam Respiratory Exam: NORMAL BREATHING PATTERN - Extremities Exam Extremities Exam: absent: Full ROM Additional comments: Motor/sensory not assessed as patient does not follow commands; remains lethargic - Neurological Exam Neurological Exam: Altered, Reflexes Normal Additional comments: Motor/sensory not assessed as patient does not follow commands; remains lethargic - Psychiatric Exam Additional comments: lethargic - Skin Skin Exam: Normal Color Assessment and Plan (1) 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 Esparza is an 87 y/o male who is s/p acute ischemic stroke and right MCA thrombectomy. Plan: Imaging: -CT Head (03/21/18):Stable appearance of acute hemorrhagic process centered in the right basal ganglia. Stable findings related to right MCA infarct. Limitations of the current examination: Patient related motion induced artifact. -CT Head (03/20/18): Large right MCA territory infarct which has now undergone hemorrhagic conversion. The hemorrhagic epicenter is located the right anterior basal ganglia as detailed above. Persistent mild mass-effect. Extensive chronic white matter ischemic changes. -CT Head (03/20/18): large RMCA infarct has now undergone hemorrhagic conversion; hemorrhagic epicenter is located right anterior basal ganglia; persistent mild mass effect; extensive chronic white matter ischemic changes -CT Head (03/18/18): There are acute infarct changes seen in the right basal ganglia with mild mass-effect that result in compression of the right frontal horn and anterior body of the right lateral ventricle. No definitive evidence of acute hemorrhage seen at this time. Apparent resolution previously noted dense right MCA sign. Extensive and severe diffuse/confluent chronic white matter ischemic changes with extension into the white matter tracts of both basal ganglia. Moderate to fairly significant central volume loss not withstanding mass-effect on the right lateral ventricle as above. -CT Head (03/17/18): There is an apparent hyperdense right-sided MCA sign consi stent with thrombus in the right middle cerebral artery. Significant diffuse/confluent chronic appearing low-attenuation changes seen extending from the periventricular into the deep and subcortical white matter both cerebral hemispheres. Findings may represent chronic sequela of small vessel disease. There also appears to be some extension of these changes into the white matter tracts of both basal nuclei. Note that the possibility of a small hyperacute infarct cannot be excluded on this study. Fairly significant central volume loss evidenced by disproportionate enlargement of the ventricles compared sulci.. -CTA head and Neck: There is abrupt cut off enhancement within the mid to distal right mid middle cerebral artery with no significant enhancement of distal branch vessels consistent with thrombus in this vessel. These findings were discussed with Dr. Lyon at approximately 5:45 p.m. with written down and read back verification. Enlarged heterogeneous right lobe thyroid gland with multiple small on varying sized hypodense nodules. There also appear to be 1 or 2 small nodules left lobe thyroid gland. Follow-up thyroid ultrasound recommended. - Continue to hold anticoagulation 2/2 hemorrhage and pt is for PEG insertion with GI in the morning pending family agreement. - Continue SCDs for DVT prophylaxis for now. - Continue PT/ST/OT - New onset afib--Dr. Myers consulted - We will continue to follow up with the pt. - Notify neuro team of any acute changes. Case discussed with Dr. Henley Status: Acute
--- NOTE | 2018-03-23 21:23 | PN ---
DATE: 03/23/[address] Myers. SUBJECTIVE: The patient is sitting on a chair and his son is at the bedside. However, the patient is not appropriately answering the questions that his son presented to him in Wallisian. The patient does not appear to be in any respiratory distress. PHYSICAL EXAMINATION: VITAL SIGNS: Blood pressure 130/68, heart rate 79, respirations 35, and temperature 99.7. HEENT: Normocephalic. CHEST: Clear. HEART: S1 and S2 regular. EXTREMITIES: No edema. LABORATORY DATA: Hemoglobin and hematocrit are 11.9 and 35.4. White count and platelet count are within normal limits. SMA-7; sodium 147, potassium 3.3, chloride 116, CO2 of 23, glucose 123, BUN 31, creatinine 0.9. Phosphorus below normal at 1.8 and calcium below normal at 8.5. Yesterday's chest CT scan revealed mild bibasilar atelectasis, right greater than left and developmental lower lobe infiltrate could not be excluded. The most recent head CT scan 2 days ago revealed stable-appearing acute hemorrhagic process centered in the right basal ganglia. Stable findings related to right mid cerebral artery infarct. Echocardiography study revealed moderate pulmonary hypertension, LVH with normal ejection fraction. ASSESSMENT: 1. Status post acute cerebrovascular accident with cerebral arteriogram and mechanical thrombectomy of the right mid cerebral artery with subsequent hemorrhagic changes in the infarct territory. 2. New onset atrial fibrillation. 3. Moderate pulmonary hypertension. 4. Hypokalemia. 5. Uncontrolled diabetes mellitus. 6. Hypophosphatemia and hypocalcemia. 7. Consider developing bilateral lower lobe pneumonia. RECOMMENDATIONS: Continue Crestor 10 mg once a day and Zosyn 3.375 g intravenously every 8 hours. Subcutaneous heparin was discontinued yesterday. The patient did receive potassium phosphate intravenous placement today. Sea Badillo MD Job # [id number]
--- NOTE | 2018-03-23 22:20 | CARD ---
APPROVED REPORT Date of service: 03/17/2018 EKG Measurement Heart [id number] <Conclusion> Undetermined rhythm Left axis deviation Inferior infarct, age undetermined Anterior infarct, age undetermined Abnormal ECG
--- NOTE | 2018-03-23 23:40 | CP.PCM.PN ---
Subjective - Subjective Subjective: dictated Objective - Vital Signs/Intake and Output Vital Signs (last 24 hours): Temp Pulse Resp BP Pulse Ox 98.3 F 80 23 130/89 96 03/23/18 20:00 03/23/18 23:00 03/23/18 23:00 03/23/18 23:00 03/23/18 23:00 Intake and Output: 03/23/18 03/24/18 18:59 06:59 Intake Total 1048 225 Output Total 430 230 Balance 618 -5 - Medications Medications: Current Medications Acetaminophen (Tylenol 650mg/20.3ml Solution Ud) 650 mg PO Q4H PRN Last Admin: 03/22/18 23:47 Dose: 650 mg Piperacillin Sod/Tazobactam (Sod 3.375 gm/ Sodium Chloride) 100 mls @ 200 mls/hr IVPB Q8H [facility]; Protocol Last Admin: 03/23/18 17:22 Dose: 200 mls/hr Insulin Human Regular (Novolin R) 0 unit SC Q6H [facility]; Protocol Last Admin: 03/23/18 18:02 Dose: Not Given Lactic Acid (Lac-Hydrin 12% Lotion (225 G)) 0 gm EXT BID [facility] Last Admin: 03/23/18 17:19 Dose: 1 applic Methylphenidate HCl (Ritalin) 5 mg PO DAILY [facility] Last Admin: 03/23/18 09:13 Dose: 5 mg Pantoprazole Sodium (Protonix Inj) 40 mg IVP DAILY [facility] Last Admin: 03/23/18 09:09 Dose: 40 mg Rosuvastatin Calcium (Crestor) 10 mg PO HS [facility] Last Admin: 03/22/18 21:51 Dose: 10 mg Tamsulosin HCl (Flomax) 0.4 mg PO DAILY [facility] Last Admin: 03/23/18 17:19 Dose: 0.4 mg - Labs Labs: 03/23/18 05:49 03/23/18 05:49 PT 14.2 SECONDS (9.7-12.2) H 03/17/18 17:40 INR 1.3 03/17/18 17:40 APTT 30 SECONDS (21-34) 03/18/18 05:48
[2018-03-24] MEDS: Piperacillin/Tazobact 3.375 GM in Sodium Chloride 100 ML IVPB SCH ×3 (02:45→18:32)
[2018-03-24] MEDS: (Novolin R) Insulin Human Regular 100 units/ml vial SC SCH ×4 (06:00→17:12)
[2018-03-24 06:37] LABS: BASO % 0.3 % (0.0-2.0); EOS # 0.1 K/uL (0.0-0.7); EOS % 0.7 % (0.0-4.0); HEMOGLOBIN 12.5 g/dL (12.0-18.0); LYMPH # 1.9 K/uL (1.0-4.3); LYMPH % 22.8 % (20.0-40.0); MEAN CELL VOLUME 96.6 fL (80.0-94.0); MEAN CORPUSCULAR HEMOGLOBIN 32.3 pg (27.0-31.0); MEAN CORPUSCULAR HGB CONC 33.4 g/dL (33.0-37.0); MEAN PLATELET VOLUME 9.5 fL (7.2-11.7); MONO # 0.5 K/uL (0.0-0.8); MONO % 6.3 % (0.0-10.0); NEUT # 5.9 K/uL (1.8-7.0); NEUT % 69.9 % (50.0-75.0); NRBC % 0.2 % (0.0-2.0); RBC 3.88 Mil/uL (4.40-5.90); RED CELL DISTRIBUTION WIDTH 15.4 % (11.5-14.5); WHITE BLOOD COUNT 8.5 K/uL (4.8-10.8)
[2018-03-24 07:06] LABS: ALBUMIN 2.9 g/dL (3.5-5.0); ALT/SGPT 24 U/L (21-72); AST/SGOT 23 U/L (17-59); BLOOD UREA NITROGEN 31 mg/dL (9-20); CALCIUM 8.5 mg/dl (8.6-10.4); GFR NON-AFRICAN AMERICAN > 60
--- NOTE | 2018-03-24 08:02 | CP.CCUPN ---
<Teja Mott - Last Filed: 03/24/18 09:33> CCU Subjective - Physician Review Subjective (Free Text): 03/24/18 09:33 Teja Mott PGY1 Progress Note for Dr. Palm Pt was examined at bedside this morning. He remains nonverbal, unable to obey commands. He is sleepy but arrousable. ROS is not attainable at this time. As per nursing report, pt was restless overnight. Pt is deemed stable for downgrade to [facility]. CCU Objective - Vital Signs / Intake & Output Vital Signs (Last 4 hours): Vital Signs Pulse Resp BP Pulse Ox 03/24/18 07:00 74 18 104/62 94 L 03/24/18 06:00 74 25 H 132/68 92 L 03/24/18 05:00 80 23 123/75 Intake and Output (Last 8hrs): Intake & Output 03/23/18 03/24/18 03/24/18 22:59 06:59 14:59 Intake Total 450 195 0 Output Total 485 470 40 Balance -35 -275 -40 Weight 154 lb 6 oz Intake: Intake, IV Amount 100 100 Left Forearm 100 Right Forearm 0 100 Oral 60 60 Tube Feeding 210 35 0 Albumin 80 Output: Urine 485 470 40 Urethral ([place]) 485 470 40 Other: # Bowel Movements 1 - Physical Exam Head: Positive for: Atraumatic, Normocephalic Pupils: Positive for: PERRL Extroacular Muscles: Positive for: EOMI Conjunctiva: Positive for: Normal Mouth: Positive for: Moist Mucous Membranes Pharnyx: Positive for: Normal Neck: Positive for: Normal Range of Motion Respiratory/Chest: Positive for: Clear to Auscultation, Good Air Exchange Cardiovascular: Positive for: Regular Rate and Rhythm, Murmurs Abdomen: Positive for: Normal Bowel Sounds. Negative for: Tenderness, Distention Upper Extremity: Positive for: Normal Inspection Lower Extremity: Positive for: Other (PVD, ecchymosis) Neurological: Positive for: Other (left facial droop. 4/5 LUE, 4/5 LLE) Psychiatric: Positive for: Alert - Medications Active Medications: Active Medications Generic Name Dose Route Start Last Admin Trade Name Freq PRN Reason Stop Dose Admin Acetaminophen 650 mg 03/22/18 23:31 03/22/18 23:47 Tylenol 650mg/20.3ml Solution Ud PO 650 mg Q4H PRN Administration Piperacillin Sod/Tazobactam 100 mls @ 200 mls/hr 03/22/18 18:00 03/24/18 02:45 Sod 3.375 gm/ Sodium Chloride IVPB 200 mls/hr Q8H TETO Administration Protocol Insulin Human Regular 0 unit 03/22/18 12:00 03/24/18 06:00 Novolin R SC Not Given Q6H TETO Protocol Lactic Acid 0 gm 03/20/18 18:00 03/23/18 17:19 Lac-Hydrin 12% Lotion (225 G) EXT 1 applic BID TETO Administration Methylphenidate HCl 5 mg 03/23/18 10:00 03/23/18 09:13 Ritalin PO 5 mg DAILY TETO Administration Pantoprazole Sodium 40 mg 03/18/18 10:00 03/23/18 09:09 Protonix Inj IVP 40 mg DAILY TETO Administration Rosuvastatin Calcium 10 mg 03/19/18 22:00 03/23/18 23:00 Crestor PO 10 mg HS TETO Administration Tamsulosin HCl 0.4 mg 03/23/18 16:30 03/23/18 17:19 Flomax PO 0.4 mg DAILY TETO Administration - Patient Studies Lab Studies: Lab Studies 03/24/18 03/24/18 03/24/18 Range/Units 06:22 06:22 05:33 WBC 8.5 (4.8-10.8) K/uL RBC 3.88 L (4.40-5.90) Mil/uL Hgb 12.5 (12.0-18.0) g/dL Hct 37.5 (35.0-51.0) % MCV 96.6 H (80.0-94.0) fL MCH 32.3 H (27.0-31.0) pg MCHC 33.4 (33.0-37.0) g/dL RDW 15.4 H (11.5-14.5) % Plt Count 198 (130-400) K/uL MPV 9.5 (7.2-11.7) fL Neut % (Auto) 69.9 (50.0-75.0) % Lymph % (Auto) 22.8 (20.0-40.0) % [place] % (Auto) 6.3 (0.0-10.0) % Eos % (Auto) 0.7 (0.0-4.0) % Baso % (Auto) 0.3 (0.0-2.0) % Neut # (Auto) 5.9 (1.8-7.0) K/uL Lymph # (Auto) 1.9 (1.0-4.3) K/uL [place] # (Auto) 0.5 (0.0-0.8) K/uL Eos # (Auto) 0.1 (0.0-0.7) K/uL Baso # (Auto) 0.0 (0.0-0.2) K/uL Sodium 148 (132-148) mmol/L Potassium 3.6 (3.6-5.2) mmol/L Chloride 115 H (98-107) mmol/L Carbon Dioxide 26 (22-30) mmol/L Anion Gap 10 (10-20) BUN 31 H (9-20) mg/dL Creatinine 0.7 L (0.8-1.5) mg/dL Est GFR ( Amer) > 60 Est GFR (Non-Af Amer) > 60 POC Glucose (mg/dL) 136 H (65-110) mg/dL Random Glucose 134 H (75-110) mg/dL Calcium 8.5 L (8.6-10.4) mg/dl Phosphorus 2.7 (2.5-4.5) mg/dL Magnesium 2.2 (1.6-2.3) mg/dL Total Bilirubin 1.0 (0.2-1.3) mg/dL AST 23 (17-59) U/L ALT 24 (21-72) U/L Alkaline Phosphatase 76 (38-126) U/L Total Protein 5.8 L (6.3-8.3) g/dL Albumin 2.9 L (3.5-5.0) g/dL Globulin 2.8 (2.2-3.9) gm/dL Albumin/Globulin Ratio 1.0 (1.0-2.1) 03/23/18 03/23/18 03/23/18 Range/Units 23:30 17:48 11:44 WBC (4.8-10.8) K/uL RBC (4.40-5.90) Mil/uL Hgb (12.0-18.0) g/dL Hct (35.0-51.0) % MCV (80.0-94.0) fL MCH (27.0-31.0) pg MCHC (33.0-37.0) g/dL RDW (11.5-14.5) % Plt Count (130-400) K/uL MPV (7.2-11.7) fL Neut % (Auto) (50.0-75.0) % Lymph % (Auto) (20.0-40.0) % [place] % (Auto) (0.0-10.0) % Eos % (Auto) (0.0-4.0) % Baso % (Auto) (0.0-2.0) % Neut # (Auto) (1.8-7.0) K/uL Lymph # (Auto) (1.0-4.3) K/uL [place] # (Auto) (0.0-0.8) K/uL Eos # (Auto) (0.0-0.7) K/uL Baso # (Auto) (0.0-0.2) K/uL Sodium (132-148) mmol/L Potassium (3.6-5.2) mmol/L Chloride (98-107) mmol/L Carbon Dioxide (22-30) mmol/L Anion Gap (10-20) BUN (9-20) mg/dL Creatinine (0.8-1.5) mg/dL Est GFR ( Amer) Est GFR (Non-Af Amer) POC Glucose (mg/dL) 127 H 145 H 187 H (65-110) mg/dL Random Glucose (75-110) mg/dL Calcium (8.6-10.4) mg/dl Phosphorus (2.5-4.5) mg/dL Magnesium (1.6-2.3) mg/dL Total Bilirubin (0.2-1.3) mg/dL AST (17-59) U/L ALT (21-72) U/L Alkaline Phosphatase (38-126) U/L Total Protein (6.3-8.3) g/dL Albumin (3.5-5.0) g/dL Globulin (2.2-3.9) gm/dL Albumin/Globulin Ratio (1.0-2.1) 12/06/18 12/05/18 Range/Units 05:15 23:56 WBC (4.8-10.8) K/uL RBC (4.40-5.90) Mil/uL Hgb (12.0-18.0) g/dL Hct (35.0-51.0) % MCV (80.0-94.0) fL MCH (27.0-31.0) pg MCHC (33.0-37.0) g/dL RDW (11.5-14.5) % Plt Count (130-400) K/uL MPV (7.2-11.7) fL Neut % (Auto) (50.0-75.0) % Lymph % (Auto) (20.0-40.0) % [place] % (Auto) (0.0-10.0) % Eos % (Auto) (0.0-4.0) % Baso % (Auto) (0.0-2.0) % Neut # (Auto) (1.8-7.0) K/uL Lymph # (Auto) (1.0-4.3) K/uL [place] # (Auto) (0.0-0.8) K/uL Eos # (Auto) (0.0-0.7) K/uL Baso # (Auto) (0.0-0.2) K/uL Sodium (132-148) mmol/L Potassium (3.6-5.2) mmol/L Chloride (98-107) mmol/L Carbon Dioxide (22-30) mmol/L Anion Gap (10-20) BUN (9-20) mg/dL Creatinine (0.8-1.5) mg/dL Est GFR ( Amer) Est GFR (Non-Af Amer) POC Glucose (mg/dL) 207 H 245 H (65-110) mg/dL Random Glucose (75-110) mg/dL Calcium (8.6-10.4) mg/dl Phosphorus (2.5-4.5) mg/dL Magnesium (1.6-2.3) mg/dL Total Bilirubin (0.2-1.3) mg/dL AST (17-59) U/L ALT (21-72) U/L Alkaline Phosphatase (38-126) U/L Total Protein (6.3-8.3) g/dL Albumin (3.5-5.0) g/dL Globulin (2.2-3.9) gm/dL Albumin/Globulin Ratio (1.0-2.1) Laboratory Results - last 24 hr 03/22/18 03/23/18 03/23/18 23:56 05:15 11:44 WBC RBC Hgb Hct MCV MCH MCHC RDW Plt Count MPV Neut % (Auto) Lymph % (Auto) [place] % (Auto) Eos % (Auto) Baso % (Auto) Neut # (Auto) Lymph # (Auto) [place] # (Auto) Eos # (Auto) Baso # (Auto) Sodium Potassium Chloride Carbon Dioxide Anion Gap BUN Creatinine Est GFR ( Amer) Est GFR (Non-Af Amer) POC Glucose (mg/dL) 245 H 207 H 187 H Random Glucose Calcium Phosphorus Magnesium Total Bilirubin AST ALT Alkaline Phosphatase Total Protein Albumin Globulin Albumin/Globulin Ratio 03/23/18 03/23/18 03/24/18 17:48 23:30 05:33 WBC RBC Hgb Hct MCV MCH MCHC RDW Plt Count MPV Neut % (Auto) Lymph % (Auto) [place] % (Auto) Eos % (Auto) Baso % (Auto) Neut # (Auto) Lymph # (Auto) [place] # (Auto) Eos # (Auto) Baso # (Auto) Sodium Potassium Chloride Carbon Dioxide Anion Gap BUN Creatinine Est GFR ( Amer) Est GFR (Non-Af Amer) POC Glucose (mg/dL) 145 H 127 H 136 H Random Glucose Calcium Phosphorus Magnesium Total Bilirubin AST ALT Alkaline Phosphatase Total Protein Albumin Globulin Albumin/Globulin Ratio 03/24/18 03/24/18 06:22 06:22 WBC 8.5 RBC 3.88 L Hgb 12.5 Hct 37.5 MCV 96.6 H MCH 32.3 H MCHC 33.4 RDW 15.4 H Plt Count 198 MPV 9.5 Neut % (Auto) 69.9 Lymph % (Auto) 22.8 [place] % (Auto) 6.3 Eos % (Auto) 0.7 Baso % (Auto) 0.3 Neut # (Auto) 5.9 Lymph # (Auto) 1.9 [place] # (Auto) 0.5 Eos # (Auto) 0.1 Baso # (Auto) 0.0 Sodium 148 Potassium 3.6 Chloride 115 H Carbon Dioxide 26 Anion Gap 10 BUN 31 H Creatinine 0.7 L Est GFR ( Amer) > 60 Est GFR (Non-Af Amer) > 60 POC Glucose (mg/dL) Random Glucose 134 H Calcium 8.5 L Phosphorus 2.7 Magnesium 2.2 Total Bilirubin 1.0 AST 23 ALT 24 Alkaline Phosphatase 76 Total Protein 5.8 L Albumin 2.9 L Globulin 2.8 Albumin/Globulin Ratio 1.0 Fingerstick Blood Sugar Results: 136 Review of Systems - Review of Systems Systems not reviewed;Unavailable: Altered Mental Status Critical Care Progress Note - Nutrition Nutrition: Nutrition Category Date Time Status NPO Diet [DIET] Diets 03/24/18 Breakfast Active Assessment/Plan - Assessment and Plan (Free Text) Assessment: 87yo M PMHx PVD w/ IVC filter, BPH, presenting with L sided weakness to the ED and was called a code stroke. Pt found to have acute ischemic stroke, s/p right MCA thrombectomy on 03/17. CT brain 03/20 showed hemorrhagic conversion, CT 03/21 stable from prior. Anticoagulation held due to potential PEG tube placement. Plan: Neuro Acute ischemic stroke with hemorrhagic conversion - s/p R MCA thrombectomy 03/17 - CT brain 03/20: large R MCA infarct undergone hemorrhagic conversion w/ epicenter in R anterior basal ganglia. extensive chronic white matter ischemic changes - CT brain 03/21: stable acute hemorrhage in R basal ganglia. - [id number] VASc score: 4 - HAS-BLED score: 3 - crestor 10 PO HS - heparin 5000u SC q12- held for possible PEG tube placement on 02/22 - hold eliquis, as per neuro - Neuro consulted, Dr. Derik velazquez appreciated Cardio Atrial Fibrillation - new onset - hold anticoagulation at this time, as per cardio - crestor 10 PO HS - Cardio consulted, Dr. Laurie velazquez appreciated Pulm Possible PNA - CXR (03/22): developing lower lobe infiltrates - Zosyn 3.375g IV Q8 (Started on 03/22) GI Dysphagia - pt failed speech/swallow eval - NG tube in place - Glucerna feeds - GI consulted, Dr. Drake- PEG tube placement, pending consent from [facility] - protonix 40mg IV daily Renal Hypokalemia, hypophasphatemia - Potassium repleted - Continue to monitor Heme - hold eliquis - hold heparin ID - no active issues Endo DM-2 - low dose insulin sliding scale q6h - maintain euglycemia - glucerna tube feeds PPX GI: protonix 40 DVT: SCDs, heparin 5000u SC q12- held for possible PEG tube placement on 02/22 Pt seen and case reviewed with Dr. Edgar Palm <Lili Palm M - Last Filed: 03/24/18 10:30> CCU Objective - Vital Signs / Intake & Output Vital Signs (Last 4 hours): Vital Signs Temp Pulse Resp BP Pulse Ox 03/24/18 08:00 98.9 F 78 16 133/83 97 03/24/18 07:00 74 18 104/62 94 L Intake and Output (Last 8hrs): Intake & Output 03/23/18 03/24/18 03/24/18 22:59 06:59 14:59 Intake Total 450 195 0 Output Total 485 470 40 Balance -35 -275 -40 Weight 154 lb 6 oz Intake: Intake, IV Amount 100 100 Left Forearm 100 Right Forearm 0 100 Oral 60 60 Tube Feeding 210 35 0 Albumin 80 Output: Urine 485 470 40 Urethral ([place]) 485 470 40 Other: # Bowel Movements 1 - Medications Active Medications: Active Medications Generic Name Dose Route Start Last Admin Trade Name Megan PRN Reason Stop Dose Admin Acetaminophen 650 mg 03/22/18 23:31 03/22/18 23:47 Tylenol 650mg/20.3ml Solution Ud PO 650 mg Q4H PRN Administration Heparin Sodium (Porcine) 5,000 units 03/24/18 10:30 Heparin SC Q12H TETO Piperacillin Sod/Tazobactam 100 mls @ 200 mls/hr 03/22/18 18:00 03/24/18 09:20 Sod 3.375 gm/ Sodium Chloride IVPB 200 mls/hr Q8H TETO Administration Protocol Insulin Human Regular 0 unit 03/22/18 12:00 03/24/18 06:00 Novolin R SC Not Given Q6H TETO Protocol Lactic Acid 0 gm 03/20/18 18:00 03/24/18 09:22 Lac-Hydrin 12% Lotion (225 G) EXT 1 applic BID TETO Administration Methylphenidate HCl 5 mg 03/23/18 10:00 03/24/18 09:19 Ritalin PO 5 mg DAILY TETO Administration Pantoprazole Sodium 40 mg 03/24/18 16:00 Protonix Susp PO 0600,1600 TETO Rosuvastatin Calcium 10 mg 03/19/18 22:00 03/23/18 23:00 Crestor PO 10 mg HS TETO Administration Tamsulosin HCl 0.4 mg 03/23/18 16:30 03/24/18 09:19 Flomax PO 0.4 mg DAILY TETO Administration - Patient Studies Lab Studies: Lab Studies 03/24/18 03/24/18 03/24/18 Range/Units 06:22 06:22 05:33 WBC 8.5 (4.8-10.8) K/uL RBC 3.88 L (4.40-5.90) Mil/uL Hgb 12.5 (12.0-18.0) g/dL Hct 37.5 (35.0-51.0) % MCV 96.6 H (80.0-94.0) fL MCH 32.3 H (27.0-31.0) pg MCHC 33.4 (33.0-37.0) g/dL RDW 15.4 H (11.5-14.5) % Plt Count 198 (130-400) K/uL MPV 9.5 (7.2-11.7) fL Neut % (Auto) 69.9 (50.0-75.0) % Lymph % (Auto) 22.8 (20.0-40.0) % [place] % (Auto) 6.3 (0.0-10.0) % Eos % (Auto) 0.7 (0.0-4.0) % Baso % (Auto) 0.3 (0.0-2.0) % Neut # (Auto) 5.9 (1.8-7.0) K/uL Lymph # (Auto) 1.9 (1.0-4.3) K/uL [place] # (Auto) 0.5 (0.0-0.8) K/uL Eos # (Auto) 0.1 (0.0-0.7) K/uL Baso # (Auto) 0.0 (0.0-0.2) K/uL Sodium 148 (132-148) mmol/L Potassium 3.6 (3.6-5.2) mmol/L Chloride 115 H (98-107) mmol/L Carbon Dioxide 26 (22-30) mmol/L Anion Gap 10 (10-20) BUN 31 H (9-20) mg/dL Creatinine 0.7 L (0.8-1.5) mg/dL Est GFR ( Amer) > 60 Est GFR (Non-Af Amer) > 60 POC Glucose (mg/dL) 136 H (65-110) mg/dL Random Glucose 134 H (75-110) mg/dL Calcium 8.5 L (8.6-10.4) mg/dl Phosphorus 2.7 (2.5-4.5) mg/dL Magnesium 2.2 (1.6-2.3) mg/dL Total Bilirubin 1.0 (0.2-1.3) mg/dL AST 23 (17-59) U/L ALT 24 (21-72) U/L Alkaline Phosphatase 76 (38-126) U/L Total Protein 5.8 L (6.3-8.3) g/dL Albumin 2.9 L (3.5-5.0) g/dL Globulin 2.8 (2.2-3.9) gm/dL Albumin/Globulin Ratio 1.0 (1.0-2.1) 03/23/18 03/23/18 03/23/18 Range/Units 23:30 17:48 11:44 WBC (4.8-10.8) K/uL RBC (4.40-5.90) Mil/uL Hgb (12.0-18.0) g/dL Hct (35.0-51.0) % MCV (80.0-94.0) fL MCH (27.0-31.0) pg MCHC (33.0-37.0) g/dL RDW (11.5-14.5) % Plt Count (130-400) K/uL MPV (7.2-11.7) fL Neut % (Auto) (50.0-75.0) % Lymph % (Auto) (20.0-40.0) % [place] % (Auto) (0.0-10.0) % Eos % (Auto) (0.0-4.0) % Baso % (Auto) (0.0-2.0) % Neut # (Auto) (1.8-7.0) K/uL Lymph # (Auto) (1.0-4.3) K/uL [place] # (Auto) (0.0-0.8) K/uL Eos # (Auto) (0.0-0.7) K/uL Baso # (Auto) (0.0-0.2) K/uL Sodium (132-148) mmol/L Potassium (3.6-5.2) mmol/L Chloride (98-107) mmol/L Carbon Dioxide (22-30) mmol/L Anion Gap (10-20) BUN (9-20) mg/dL Creatinine (0.8-1.5) mg/dL Est GFR ( Amer) Est GFR (Non-Af Amer) POC Glucose (mg/dL) 127 H 145 H 187 H (65-110) mg/dL Random Glucose (75-110) mg/dL Calcium (8.6-10.4) mg/dl Phosphorus (2.5-4.5) mg/dL Magnesium (1.6-2.3) mg/dL Total Bilirubin (0.2-1.3) mg/dL AST (17-59) U/L ALT (21-72) U/L Alkaline Phosphatase (38-126) U/L Total Protein (6.3-8.3) g/dL Albumin (3.5-5.0) g/dL Globulin (2.2-3.9) gm/dL Albumin/Globulin Ratio (1.0-2.1) 03/23/18 03/22/18 Range/Units 05:15 23:56 WBC (4.8-10.8) K/uL RBC (4.40-5.90) Mil/uL Hgb (12.0-18.0) g/dL Hct (35.0-51.0) % MCV (80.0-94.0) fL MCH (27.0-31.0) pg MCHC (33.0-37.0) g/dL RDW (11.5-14.5) % Plt Count (130-400) K/uL MPV (7.2-11.7) fL Neut % (Auto) (50.0-75.0) % Lymph % (Auto) (20.0-40.0) % [place] % (Auto) (0.0-10.0) % Eos % (Auto) (0.0-4.0) % Baso % (Auto) (0.0-2.0) % Neut # (Auto) (1.8-7.0) K/uL Lymph # (Auto) (1.0-4.3) K/uL [place] # (Auto) (0.0-0.8) K/uL Eos # (Auto) (0.0-0.7) K/uL Baso # (Auto) (0.0-0.2) K/uL Sodium (132-148) mmol/L Potassium (3.6-5.2) mmol/L Chloride (98-107) mmol/L Carbon Dioxide (22-30) mmol/L Anion Gap (10-20) BUN (9-20) mg/dL Creatinine (0.8-1.5) mg/dL Est GFR ( Amer) Est GFR (Non-Af Amer) POC Glucose (mg/dL) 207 H 245 H (65-110) mg/dL Random Glucose (75-110) mg/dL Calcium (8.6-10.4) mg/dl Phosphorus (2.5-4.5) mg/dL Magnesium (1.6-2.3) mg/dL Total Bilirubin (0.2-1.3) mg/dL AST (17-59) U/L ALT (21-72) U/L Alkaline Phosphatase (38-126) U/L Total Protein (6.3-8.3) g/dL Albumin (3.5-5.0) g/dL Globulin (2.2-3.9) gm/dL Albumin/Globulin Ratio (1.0-2.1) Laboratory Results - last 24 hr 03/22/18 03/23/18 03/23/18 23:56 05:15 11:44 WBC RBC Hgb Hct MCV MCH MCHC RDW Plt Count MPV Neut % (Auto) Lymph % (Auto) [place] % (Auto) Eos % (Auto) Baso % (Auto) Neut # (Auto) Lymph # (Auto) [place] # (Auto) Eos # (Auto) Baso # (Auto) Sodium Potassium Chloride Carbon Dioxide Anion Gap BUN Creatinine Est GFR ( Amer) Est GFR (Non-Af Amer) POC Glucose (mg/dL) 245 H 207 H 187 H Random Glucose Calcium Phosphorus Magnesium Total Bilirubin AST ALT Alkaline Phosphatase Total Protein Albumin Globulin Albumin/Globulin Ratio 03/23/18 03/23/18 03/24/18 17:48 23:30 05:33 WBC RBC Hgb Hct MCV MCH MCHC RDW Plt Count MPV Neut % (Auto) Lymph % (Auto) [place] % (Auto) Eos % (Auto) Baso % (Auto) Neut # (Auto) Lymph # (Auto) [place] # (Auto) Eos # (Auto) Baso # (Auto) Sodium Potassium Chloride Carbon Dioxide Anion Gap BUN Creatinine Est GFR ( Amer) Est GFR (Non-Af Amer) POC Glucose (mg/dL) 145 H 127 H 136 H Random Glucose Calcium Phosphorus Magnesium Total Bilirubin AST ALT Alkaline Phosphatase Total Protein Albumin Globulin Albumin/Globulin Ratio 03/24/18 03/24/18 06:22 06:22 WBC 8.5 RBC 3.88 L Hgb 12.5 Hct 37.5 MCV 96.6 H MCH 32.3 H MCHC 33.4 RDW 15.4 H Plt Count 198 MPV 9.5 Neut % (Auto) 69.9 Lymph % (Auto) 22.8 [place] % (Auto) 6.3 Eos % (Auto) 0.7 Baso % (Auto) 0.3 Neut # (Auto) 5.9 Lymph # (Auto) 1.9 [place] # (Auto) 0.5 Eos # (Auto) 0.1 Baso # (Auto) 0.0 Sodium 148 Potassium 3.6 Chloride 115 H Carbon Dioxide 26 Anion Gap 10 BUN 31 H Creatinine 0.7 L Est GFR ( Amer) > 60 Est GFR (Non-Af Amer) > 60 POC Glucose (mg/dL) Random Glucose 134 H Calcium 8.5 L Phosphorus 2.7 Magnesium 2.2 Total Bilirubin 1.0 AST 23 ALT 24 Alkaline Phosphatase 76 Total Protein 5.8 L Albumin 2.9 L Globulin 2.8 Albumin/Globulin Ratio 1.0 Critical Care Progress Note - Nutrition Nutrition: Nutrition Category Date Time Status NPO Diet [DIET] Diets 03/24/18 Breakfast Active Assessment/Plan - Assessment and Plan (Free Text) Plan: Patient seen and examined at bedside. Patient remains awake, alert. One son MAGED at bedside. I have had a discussion regarding risks, benefits and alternatives to NG tube versus PEG tube feeding. Both Maged and Jonas ([phone]) verbazlied understanding. -keep NPO -PEG tube placement today -hold hep SQ -PT/OT -Patient remains hemodynamically stable. -PAtient can be transferred to Telemetry -check and replace all electrolytes -no AC/Antiplatelets -neurology to determine optimal time to restart AC and antiplatelets in light of hemorrhagic conversion. d/w ICU team - Date & Time Date: 03/24/18 Time: 10:30
[2018-03-24] MEDS: Ammonium Lactate 12% Lotion (225 g) EXT SCH ×2 (09:22→17:12)
--- NOTE | 2018-03-24 10:48 | CP.PCM.PN ---
Subjective - Date & Time of Evaluation Date of Evaluation: 03/24/18 Time of Evaluation: 10:46 - Subjective Subjective: D/W pt's son, medical observer, and RN: Son has agreed to PEG, consent signed, labs reviewed, NPO, on antibiotics, heparin held- will proceed with PEG today Objective - Vital Signs/Intake and Output Vital Signs (last 24 hours): Temp Pulse Resp BP Pulse Ox 98.9 F 77 11 L 136/86 93 L 03/24/18 08:00 03/24/18 10:00 03/24/18 10:00 03/24/18 10:00 03/24/18 10:00 Intake and Output: 03/24/18 03/24/18 06:59 18:59 Intake Total 385 0 Output Total 700 40 Balance -315 -40 - Medications Medications: Current Medications Acetaminophen (Tylenol 650mg/20.3ml Solution Ud) 650 mg PO Q4H PRN Last Admin: 03/22/18 23:47 Dose: 650 mg Heparin Sodium (Porcine) (Heparin) 5,000 units SC Q12H TETO Piperacillin Sod/Tazobactam (Sod 3.375 gm/ Sodium Chloride) 100 mls @ 200 mls/h r IVPB Q8H TETO; Protocol Last Admin: 03/24/18 09:20 Dose: 200 mls/hr Insulin Human Regular (Novolin R) 0 unit SC Q6H TETO; Protocol Last Admin: 03/24/18 06:00 Dose: Not Given Lactic Acid (Lac-Hydrin 12% Lotion (225 G)) 0 gm EXT BID TETO Last Admin: 03/24/18 09:22 Dose: 1 applic Methylphenidate HCl (Ritalin) 5 mg PO DAILY [facility] Last Admin: 03/24/18 09:19 Dose: 5 mg Pantoprazole Sodium (Protonix Susp) 40 mg PO 0600,1600 TETO Rosuvastatin Calcium (Crestor) 10 mg PO HS TETO Last Admin: 03/23/18 23:00 Dose: 10 mg Tamsulosin HCl (Flomax) 0.4 mg PO DAILY TETO Last Admin: 03/24/18 09:19 Dose: 0.4 mg - Labs Labs: 03/24/18 06:22 03/24/18 06:22 PT 14.2 SECONDS (9.7-12.2) H 03/17/18 17:40 INR 1.3 11/30/18 17:40 APTT 30 SECONDS (21-34) 03/18/18 05:48
--- NOTE | 2018-03-24 10:57 | CP.PCM.PN ---
<Mariel Estevez - Last Filed: 03/24/18 10:53> Subjective - Date & Time of Evaluation Date of Evaluation: 03/24/18 Time of Evaluation: 10:54 - Subjective Subjective: Cardiology Follow Up Patient was seen and examined at bedside. Patient continues to remain nonverbal, he is arousable but unable to answer any ROS. Objective - Vital Signs/Intake and Output Vital Signs (last 24 hours): Temp Pulse Resp BP Pulse Ox 98.9 F 77 11 L 136/86 93 L 03/24/18 08:00 03/24/18 10:00 03/24/18 10:00 03/24/18 10:00 03/24/18 10:00 Intake and Output: 03/24/18 03/24/18 06:59 18:59 Intake Total 385 0 Output Total 700 40 Balance -315 -40 - Medications Medications: Current Medications Acetaminophen (Tylenol 650mg/20.3ml Solution Ud) 650 mg PO Q4H PRN Last Admin: 03/22/18 23:47 Dose: 650 mg Heparin Sodium (Porcine) (Heparin) 5,000 units SC Q12H [facility]ETO Piperacillin Sod/Tazobactam (Sod 3.375 gm/ Sodium Chloride) 100 mls @ 200 mls/hr IVPB Q8H [facility]; Protocol Last Admin: 03/24/18 09:20 Dose: 200 mls/hr Insulin Human Regular (Novolin R) 0 unit SC Q6H [facility]ET[facility]; Protocol Last Admin: 03/24/18 06:00 Dose: Not Given Lactic Acid (Lac-Hydrin 12% Lotion (225 G)) 0 gm EXT BID [facility] Last Admin: 03/24/18 09:22 Dose: 1 applic Methylphenidate HCl (Ritalin) 5 mg PO DAILY [facility] Last Admin: 03/24/18 09:19 Dose: 5 mg Pantoprazole Sodium (Protonix Susp) 40 mg PO 0600,1600 TETO Rosuvastatin Calcium (Crestor) 10 mg PO HS [facility] Last Admin: 03/23/18 23:00 Dose: 10 mg Tamsulosin HCl (Flomax) 0.4 mg PO DAILY [facility]O Last Admin: 03/24/18 09:19 Dose: 0.4 mg - Labs Labs: 03/24/18 06:22 03/24/18 06:22 PT 14.2 SECONDS (9.7-12.2) H 11/30/18 17:40 INR 1.3 03/17/18 17:40 APTT 30 SECONDS (21-34) 03/18/18 05:48 - Additional Findings Additional findings: - Constitutional Appears: Confused - Head Exam Head Exam: NORMAL INSPECTION, NORMOCEPHALIC - Eye Exam Eye Exam: EOMI, Normal appearance, PERRL - ENT Exam ENT Exam: Mucous Membranes Dry - Respiratory Exam Respiratory Exam: Clear to Auscultation Bilateral - Cardiovascular Exam Cardiovascular Exam: Irregular Rhythm, +S1, +S2 - GI/Abdominal Exam GI & Abdominal Exam: Normal Bowel Sounds, Soft. absent: Distended, Tenderness - Extremities Exam Extremities exam: Positive for: normal inspection, pedal pulses present. 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 Myers, Mariel Estevez DO, PGY2 <Romulo Myers - Last Filed: 03/24/18 21:51> Objective - Vital Signs/Intake and Output Vital Signs (last 24 hours): Temp Pulse Resp BP Pulse Ox 97.3 F L 101 H 20 145/82 94 L 03/24/18 16:57 03/24/18 16:57 03/24/18 16:57 03/24/18 16:57 03/24/18 16:57 Intake and Output: 03/24/18 03/25/18 18:59 06:59 Intake Total 350 Output Total 460 Balance -110 - Medications Medications: Current Medications Acetaminophen (Tylenol 650mg/20.3ml Solution Ud) 650 mg PO Q4H PRN Last Admin: 03/22/18 23:47 Dose: 650 mg Heparin Sodium (Porcine) (Heparin) 5,000 units SC Q12H [facility]ET[facility] Piperacillin Sod/Tazobactam (Sod 3.375 gm/ Sodium Chloride) 100 mls @ 200 mls/hr IVPB Q8H [facility]; Protocol Last Admin: 03/24/18 18:32 Dose: 200 mls/hr Insulin Human Regular (Novolin R) 0 unit SC Q6H [facility]; Protocol Last Admin: 03/24/18 17:12 Dose: Not Given Lactic Acid (Lac-Hydrin 12% Lotion (225 G)) 0 gm EXT BID [facility] Last Admin: 03/24/18 17:12 Dose: 1 applic Methylphenidate HCl (Ritalin) 5 mg PO DAILY [facility] Last Admin: 03/24/18 09:19 Dose: 5 mg Pantoprazole Sodium (Protonix Susp) 40 mg PO 0600,1600 [facility] Last Admin: 03/24/18 16:57 Dose: 40 mg Rosuvastatin Calcium (Crestor) 10 mg PO HS [facility] Last Admin: 03/24/18 21:43 Dose: 10 mg Tamsulosin HCl (Flomax) 0.4 mg PO DAILY [facility] Last Admin: 03/24/18 09:19 Dose: 0.4 mg - Labs Labs: 03/24/18 06:22 03/24/18 06:22 PT 14.2 SECONDS (9.7-12.2) H 03/17/18 17:40 INR 1.3 03/17/18 17:40 APTT 30 SECONDS (21-34) 03/18/18 05:48 Assessment and Plan - Assessment and Plan (Free Text) Plan: Patient seen and evaluated personally by co Plan of care d/w the medical collections representative and as documented
[2018-03-24] MEDS ORDERED: Propofol 10 mg/ml Inj (20 ML) ONE (11:32)
--- NOTE | 2018-03-24 14:59 | CP.PCM.PN ---
Subjective - Date & Time of Evaluation Date of Evaluation: 03/24/18 Time of Evaluation: 14:55 - Subjective Subjective: Neurology Follow-Up Note: Patient was seen and examined this afternoon in the ICU. Pt's son at bedside. Pt is POD #0 PEG insertion today with GI. Pt continues to be nonverbal and lethargic. He was arousable to sternal rub with me; opens eyes and moans. When asked if anything bothered him today he shook his head "no". Pt unable to follow commands. ROS by pt unobtainable; per son pt has been sleepy all day. Objective - Vital Signs/Intake and Output Vital Signs (last 24 hours): Temp Pulse Resp BP Pulse Ox 98.4 F 77 19 106/69 99 03/24/18 12:00 03/24/18 13:35 03/24/18 13:35 03/24/18 13:35 03/24/18 12:47 Intake and Output: 03/24/18 03/24/18 06:59 18:59 Intake Total 385 350 Output Total 700 260 Balance -315 90 - Medications Medications: Current Medications Acetaminophen (Tylenol 650mg/20.3ml Solution Ud) 650 mg PO Q4H PRN Last Admin: 03/22/18 23:47 Dose: 650 mg Heparin Sodium (Porcine) (Heparin) 5,000 units SC Q12H [facility] Piperacillin Sod/Tazobactam (Sod 3.375 gm/ Sodium Chloride) 100 mls @ 200 mls/hr IVPB Q8H [facility]; Protocol Last Admin: 03/24/18 09:20 Dose: 200 mls/hr Insulin Human Regular (Novolin R) 0 unit SC Q6H [facility]; Protocol Last Admin: 03/24/18 11:00 Dose: Not Given Lactic Acid (Lac-Hydrin 12% Lotion (225 G)) 0 gm EXT BID [facility] Last Admin: 03/24/18 09:22 Dose: 1 applic Methylphenidate HCl (Ritalin) 5 mg PO DAILY [facility] Last Admin: 03/24/18 09:19 Dose: 5 mg Pantoprazole Sodium (Protonix Susp) 40 mg PO 0600,1600 TETO Rosuvastatin Calcium (Crestor) 10 mg PO HS [facility] Last Admin: 03/23/18 23:00 Dose: 10 mg Tamsulosin HCl (Flomax) 0.4 mg PO DAILY [facility]ETO Last Admin: 12/07/18 09:19 Dose: 0.4 mg - Labs Labs: 03/24/18 06:22 03/24/18 06:22 PT 14.2 SECONDS (9.7-12.2) H 03/17/18 17:40 INR 1.3 03/17/18 17:40 APTT 30 SECONDS (21-34) 03/18/18 05:48 - Constitutional Appears: No Acute Distress - Head Exam Head Exam: ATRAUMATIC, NORMAL INSPECTION, NORMOCEPHALIC - Eye Exam Eye Exam: EOMI - ENT Exam ENT Exam: Mucous Membranes Dry - Neck Exam Neck Exam: Full ROM - Respiratory Exam Respiratory Exam: NORMAL BREATHING PATTERN - GI/Abdominal Exam Additional comments: new peg in place; abd binder on - Extremities Exam Extremities Exam: Normal Inspection - Neurological Exam Neurological Exam: Altered (lethargic; arousable to sternal rub; moans, opens eyes), Reflexes Normal Additional comments: motor and sensory unable to be assessed 2/2 pt still does not follow commands able to move right arm and right leg independently. 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 Esparza is an 87 y/o male who is s/p acute ischemic stroke and right MCA thrombectomy. Plan: Imaging: -CT Head (03/21/18):Stable appearance of acute hemorrhagic process centered in the right basal ganglia. Stable findings related to right MCA infarct. Limitations of the current examination: Patient related motion induced artifact. -CT Head (03/20/18): Large right MCA territory infarct which has now undergone hemorrhagic conversion. The hemorrhagic epicenter is located the right anterior basal ganglia as detailed above. Persistent mild mass-effect. Extensive chronic white matter ischemic changes. -CT Head (03/20/18): large RMCA infarct has now undergone hemorrhagic conversion; hemorrhagic epicenter is located right anterior basal ganglia; persistent mild mass effect; extensive chronic white matter ischemic changes -CT Head (03/18/18): There are acute infarct changes seen in the right basal ganglia with mild mass-effect that result in compression of the right frontal horn and anterior body of the right lateral ventricle. No definitive evidence of acute hemorrhage seen at this time. Apparent resolution previously noted dense right MCA sign. Extensive and severe diffuse/confluent chronic white matter ischemic changes with extension into the white matter tracts of both basal ganglia. Moderate to fairly significant central volume loss not withstanding mass-effect on the right lateral ventricle as above. -CT Head (03/17/18): There is an apparent hyperdense right-sided MCA sign consistent with thrombus in the right middle cerebral artery. Significant diffuse/confluent chronic appearing low-attenuation changes seen extending from the periventricular into the deep and subcortical white matter both cerebral hemispheres. Findings may represent chronic sequela of small vessel disease. There also appears to be some extension of these changes into the white matter tracts of both basal nuclei. Note that the possibility of a small hyperacute infarct cannot be excluded on this study. Fairly significant central volume loss evidenced by disproportionate enlargement of the ventricles compared sulci.. -CTA head and Neck: There is abrupt cut off enhancement within the mid to distal right mid middle cerebral artery with no significant enhancement of distal branch vessels consistent with thrombus in this vessel. These findings were discussed with Dr. Lyon at approximately 5:45 p.m. with written down and read back verification. Enlarged heterogeneous right lobe thyroid gland with multiple small on varying sized hypodense nodules. There also appear to be 1 or 2 small nodules left lobe thyroid gland. Follow-up thyroid ultrasound recommended. -Mr. esparza is POD #0 PEG insertion today - Continue to hold anticoagulation 2/2 hemorrhage. - Continue SCDs for DVT prophylaxis for now. - Continue PT/ST/OT - New onset afib--Dr. Myers consulted--hold AC per cardio notes. - We will continue to follow up with the pt. - Notify neuro team of any acute changes. Case discussed with Dr. Henley Status: Acute
[2018-03-24] MEDS: Pantoprazole 40 mg Susp UD PO SCH (16:57)
--- NOTE | 2018-03-24 22:36 | CP.PCM.PN ---
Subjective - Subjective Subjective: dictated Objective - Vital Signs/Intake and Output Vital Signs (last 24 hours): Temp Pulse Resp BP Pulse Ox 97.3 F L 101 H 20 145/82 94 L 03/24/18 16:57 03/24/18 16:57 03/24/18 16:57 03/24/18 16:57 03/24/18 16:57 Intake and Output: 03/24/18 03/25/18 18:59 06:59 Intake Total 350 Output Total 460 Balance -110 - Medications Medications: Current Medications Acetaminophen (Tylenol 650mg/20.3ml Solution Ud) 650 mg PO Q4H PRN Last Admin: 03/22/18 23:47 Dose: 650 mg Heparin Sodium (Porcine) (Heparin) 5,000 units SC Q12H TETO Piperacillin Sod/Tazobactam (Sod 3.375 gm/ Sodium Chloride) 100 mls @ 200 mls /hr IVPB Q8H [facility]; Protocol Last Admin: 03/24/18 18:32 Dose: 200 mls/hr Insulin Human Regular (Novolin R) 0 unit SC Q6H [facility]; Protocol Last Admin: 03/24/18 17:12 Dose: Not Given Lactic Acid (Lac-Hydrin 12% Lotion (225 G)) 0 gm EXT BID [facility] Last Admin: 03/24/18 17:12 Dose: 1 applic Methylphenidate HCl (Ritalin) 5 mg PO DAILY [facility] Last Admin: 03/24/18 09:19 Dose: 5 mg Pantoprazole Sodium (Protonix Susp) 40 mg PO 0600,1600 TETO Last Admin: 03/24/18 16:57 Dose: 40 mg Rosuvastatin Calcium (Crestor) 10 mg PO HS [facility]O Last Admin: 03/24/18 21:43 Dose: 10 mg Tamsulosin HCl (Flomax) 0.4 mg PO DAILY TETO Last Admin: 03/24/18 09:19 Dose: 0.4 mg - Labs Labs: 03/24/18 06:22 03/24/18 06:22 PT 14.2 SECONDS (9.7-12.2) H 03/17/18 17:40 INR 1.3 03/17/18 17:40 APTT 30 SECONDS (21-34) 03/18/18 05:48
[2018-03-25] MEDS: (Novolin R) Insulin Human Regular 100 units/ml vial SC SCH ×4 (00:39→18:25)
[2018-03-25] MEDS: Piperacillin/Tazobact 3.375 GM in Sodium Chloride 100 ML IVPB SCH ×3 (01:50→18:23)
--- NOTE | 2018-03-25 03:18 | PN ---
DATE: 03/24/2018SUBJECTIVE: The patient is afebrile. He is more alert. He is on physiotherapy. No nausea or vomiting. He had participated with physiotherapy. His NG tube is out. PHYSICAL EXAMINATION: VITAL SIGNS: Blood pressure 145/82, pulse 101, respiratory rate 20, temperature 97.3. LUNGS: Clear. No rales. No rhonchi. CARDIOVASCULAR SYSTEM: S1 and S2 regular. ABDOMEN: Soft. Left-sided weakness. ASSESSMENT: 1. Cerebrovascular accident with left-sided weakness. The patient also has hemorrhagic conversion to cerebrovascular accident. We will continue conservative supportive care. 2. Hypertension. 3. 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 4. Benign prostatic hyperplasia. PLAN: Continue physical therapy. The patient . Monitor the patient. Wild Aponte MD
[2018-03-25] MEDS: Pantoprazole 40 mg Susp UD PO SCH ×2 (06:00→18:23)
[2018-03-25 08:26] LABS: BASO % 0.2 % (0.0-2.0); EOS # 0.1 K/uL (0.0-0.7); EOS % 0.9 % (0.0-4.0); HEMOGLOBIN 12.1 g/dL (12.0-18.0); LYMPH # 1.6 K/uL (1.0-4.3); LYMPH % 22.2 % (20.0-40.0); MEAN CELL VOLUME 94.9 fL (80.0-94.0); MEAN CORPUSCULAR HGB CONC 32.7 g/dL (33.0-37.0); MONO # 0.4 K/uL (0.0-0.8); NEUT % 70.7 % (50.0-75.0); NRBC % 0.1 % (0.0-2.0); RBC 3.9 Mil/uL (4.40-5.90); RED CELL DISTRIBUTION WIDTH 14.9 % (11.5-14.5); WHITE BLOOD COUNT 7.1 K/uL (4.8-10.8)
[2018-03-25 08:57] LABS: ALBUMIN 2.8 g/dL (3.5-5.0); ALT/SGPT 26 U/L (21-72); AST/SGOT 19 U/L (17-59); BLOOD UREA NITROGEN 33 mg/dL (9-20); CALCIUM 8.4 mg/dl (8.6-10.4); GFR NON-AFRICAN AMERICAN > 60
[2018-03-25] MEDS ORDERED: Potassium Chloride 20 mEq/15 ml LIQ UD PO ONE (11:30)
[2018-03-25] MEDS: Ammonium Lactate 12% Lotion (225 g) EXT SCH ×2 (12:15→18:25)
--- NOTE | 2018-03-25 13:31 | CP.PCM.PN ---
Subjective - Date & Time of Evaluation Date of Evaluation: 03/23/18 Time of Evaluation: 17:25 - Subjective Subjective: Patient was seen and examined at bedside. Patient continues to remain nonverbal, he is arousable but unable to answer any ROS. Objective - Vital Signs/Intake and Output Vital Signs (last 24 hours): Temp Pulse Resp BP Pulse Ox 98.9 F 77 11 L 136/86 93 L 03/24/18 08:00 03/24/18 10:00 03/24/18 10:00 03/24/18 10:00 03/24/18 10:00 Intake and Output: 03/24/18 03/24/18 06:59 18:59 Intake Total 385 0 Output Total 700 40 Balance -315 -40 - Medications Medications: Current Medications Acetaminophen (Tylenol 650mg/20.3ml Solution Ud) 650 mg PO Q4H PRN Last Admin: 03/22/18 23:47 Dose: 650 mg Heparin Sodium (Porcine) (Heparin) 5,000 units SC Q12H [facility]ET[facility] Piperacillin Sod/Tazobactam (Sod 3.375 gm/ Sodium Chloride) 100 mls @ 200 mls/hr IVPB Q8H [facility]; Protocol Last Admin: 03/24/18 09:20 Dose: 200 mls/hr Insulin Human Regular (Novolin R) 0 unit SC Q6H [facility]; Protocol Last Admin: 03/24/18 06:00 Dose: Not Given Lactic Acid (Lac-Hydrin 12% Lotion (225 G)) 0 gm EXT BID [facility] Last Admin: 03/24/18 09:22 Dose: 1 applic Methylphenidate HCl (Ritalin) 5 mg PO DAILY [facility] Last Admin: 03/24/18 09:19 Dose: 5 mg Pantoprazole Sodium (Protonix Susp) 40 mg PO 0600,1600 TETO Rosuvastatin Calcium (Crestor) 10 mg PO HS [facility] Last Admin: 03/23/18 23:00 Dose: 10 mg Tamsulosin HCl (Flomax) 0.4 mg PO DAILY [facility]ETO Last Admin: 03/24/18 09:19 Dose: 0.4 mg - Labs Labs: 03/24/18 06:22 03/24/18 06:22 PT 14.2 SECONDS (9.7-12.2) H 03/17/18 17:40 INR 1.3 03/17/18 17:40 APTT 30 SECONDS (21-34) 03/18/18 05:48 - Additional Findings Additional findings: - Constitutional Appears: Confused - Head Exam Head Exam: NORMAL INSPECTION, NORMOCEPHALIC - Eye Exam Eye Exam: EOMI, Normal appearance, PERRL - ENT Exam ENT Exam: Mucous Membranes Dry - Respiratory Exam Respiratory Exam: Clear to Auscultation Bilateral - Cardiovascular Exam Cardiovascular Exam: Irregular Rhythm, +S1, +S2 - GI/Abdominal Exam GI & Abdominal Exam: Normal Bowel Sounds, Soft. absent: Distended, Tenderness - Extremities Exam Extremities exam: Positive for: normal inspection, pedal pulses present. Negative for: pedal edema, tenderness - Neurological Exam Neurological exam: Alert, Altered - Skin Skin Exam: Dry, Intact, Normal Color, Warm Assessment and Plan - Assessment and Plan (Free Text) Plan: Acute Ischemic Stroke s/p Right MCA Thrombectomy New Onset Atrial Fibrillation Management: - Due to hemorrhagic conversion, contraindicated to start AC - Heart rate controlled, if he becomes tachycardic will start BB - Will continue to monitor Objective - Vital Signs/Intake and Output Vital Signs (last 24 hours): Temp Pulse Resp BP Pulse Ox 97.8 F 75 18 138/81 97 03/25/18 07:00 03/25/18 07:00 03/25/18 07:00 03/25/18 07:00 03/25/18 07:00 Intake and Output: 03/25/18 03/25/18 06:59 18:59 Output Total 400 Balance -400 - Medications Medications: Current Medications Acetaminophen (Tylenol 650mg/20.3ml Solution Ud) 650 mg PO Q4H PRN Last Admin: 03/22/18 23:47 Dose: 650 mg Heparin Sodium (Porcine) (Heparin) 5,000 units SC Q12H [facility]ETO Piperacillin Sod/Tazobactam (Sod 3.375 gm/ Sodium Chloride) 100 mls @ 200 mls/hr IVPB Q8H [facility]; Protocol Last Admin: 03/25/18 12:14 Dose: 200 mls/hr Insulin Human Regular (Novolin R) 0 unit SC Q6H [facility]; Protocol Last Admin: 03/25/18 12:08 Dose: Not Given Lactic Acid (Lac-Hydrin 12% Lotion (225 G)) 0 gm EXT BID [facility] Last Admin: 03/25/18 12:15 Dose: 1 applic Methylphenidate HCl (Ritalin) 5 mg PO DAILY [facility] Last Admin: 03/25/18 12:14 Dose: 5 mg Pantoprazole Sodium (Protonix Susp) 40 mg PO 0600,1600 [facility]ETO Last Admin: 03/25/18 06:00 Dose: 40 mg Rosuvastatin Calcium (Crestor) 10 mg PO HS [facility] Last Admin: 03/24/18 21:43 Dose: 10 mg Tamsulosin HCl (Flomax) 0.4 mg PO DAILY [facility] Last Admin: 03/25/18 12:14 Dose: 0.4 mg - Labs Labs: 03/25/18 08:19 03/25/18 08:19 PT 14.2 SECONDS (9.7-12.2) H 03/17/18 17:40 INR 1.3 03/17/18 17:40 APTT 30 SECONDS (21-34) 03/18/18 05:48
--- NOTE | 2018-03-25 13:33 | CP.PCM.PN ---
Subjective - Date & Time of Evaluation Date of Evaluation: 03/21/18 Time of Evaluation: 18:25 - Subjective Subjective: Patient was seen and examined at bedside. Patient continues to remain nonverbal, he is arousable but unable to answer any ROS. Physical Examination - Additional Findings Additional findings: - Constitutional Appears: Confused - Head Exam Head Exam: NORMAL INSPECTION, NORMOCEPHALIC - Eye Exam Eye Exam: EOMI, Normal appearance, PERRL - ENT Exam ENT Exam: Mucous Membranes Dry - Respiratory Exam Respiratory Exam: Clear to Auscultation Bilateral - Cardiovascular Exam Cardiovascular Exam: Irregular Rhythm, +S1, +S2 - GI/Abdominal Exam GI & Abdominal Exam: Normal Bowel Sounds, Soft. absent: Distended, Tenderness - Extremities Exam Extremities exam: Positive for: normal inspection, pedal pulses present. Negative for: pedal edema, tenderness - Neurological Exam Neurological exam: Alert, Altered - Skin Skin Exam: Dry, Intact, Normal Color, Warm Assessment and Plan - Assessment and Plan (Free Text) Plan: Acute Ischemic Stroke s/p Right MCA Thrombectomy New Onset Atrial Fibrillation Management: - Start AC if cleared by Neurology - Heart rate controlled, if he becomes tachycardic will start BB - Will continue to monitor Objective - Vital Signs/Intake and Output Vital Signs (last 24 hours): Temp Pulse Resp BP Pulse Ox 97.8 F 75 18 138/81 97 03/25/18 07:00 03/25/18 07:00 03/25/18 07:00 03/25/18 07:00 03/25/18 07:00 Intake and Output: 03/25/18 03/25/18 06:59 18:59 Output Total 400 Balance -400 - Medications Medications: Current Medications Acetaminophen (Tylenol 650mg/20.3ml Solution Ud) 650 mg PO Q4H PRN Last Admin: 03/22/18 23:47 Dose: 650 mg Heparin Sodium (Porcine) (Heparin) 5,000 units SC Q12H [facility]ETO Piperacillin Sod/Tazobactam (Sod 3.375 gm/ Sodium Chloride) 100 mls @ 200 mls/hr IVPB Q8H [facility]; Protocol Last Admin: 03/25/18 12:14 Dose: 200 mls/hr Insulin Human Regular (Novolin R) 0 unit SC Q6H [facility]; Protocol Last Admin: 03/25/18 12:08 Dose: Not Given Lactic Acid (Lac-Hydrin 12% Lotion (225 G)) 0 gm EXT BID [facility] Last Admin: 03/25/18 12:15 Dose: 1 applic Methylphenidate HCl (Ritalin) 5 mg PO DAILY [facility] Last Admin: 03/25/18 12:14 Dose: 5 mg Pantoprazole Sodium (Protonix Susp) 40 mg PO 0600,1600 TETO Last Admin: 03/25/18 06:00 Dose: 40 mg Rosuvastatin Calcium (Crestor) 10 mg PO HS [facility] Last Admin: 03/24/18 21:43 Dose: 10 mg Tamsulosin HCl (Flomax) 0.4 mg PO DAILY [facility] Last Admin: 03/25/18 12:14 Dose: 0.4 mg - Labs Labs: 03/25/18 08:19 03/25/18 08:19 PT 14.2 SECONDS (9.7-12.2) H 03/17/18 17:40 INR 1.3 03/17/18 17:40 APTT 30 SECONDS (21-34) 03/18/18 05:48
--- NOTE | 2018-03-25 15:57 | CP.PCM.PN ---
Subjective - Date & Time of Evaluation Date of Evaluation: 03/25/18 Time of Evaluation: 15:35 - Subjective Subjective: f/u dysphagia No RB, melena, fever, SZ, HAGER, hematuria, hemoptysis Objective - Vital Signs/Intake and Output Vital Signs (last 24 hours): Temp Pulse Resp BP Pulse Ox 99.3 F 72 18 123/75 96 03/25/18 15:00 03/25/18 15:00 03/25/18 15:00 03/25/18 15:00 03/25/18 15:00 Intake and Output: 03/25/18 03/25/18 06:59 18:59 Output Total 400 300 Balance -400 -300 - Medications Medications: Current Medications Acetaminophen (Tylenol 650mg/20.3ml Solution Ud) 650 mg PO Q4H PRN Last Admin: 03/22/18 23:47 Dose: 650 mg Heparin Sodium (Porcine) (Heparin) 5,000 units SC Q12H [facility]ET[facility] Piperacillin Sod/Tazobactam (Sod 3.375 gm/ Sodium Chloride) 100 mls @ 200 mls/hr IVPB Q8H [facility]; Protocol Last Admin: 03/25/18 12:14 Dose: 200 mls/hr Insulin Human Regular (Novolin R) 0 unit SC Q6H [facility]; Protocol Last Admin: 03/25/18 12:08 Dose: Not Given Lactic Acid (Lac-Hydrin 12% Lotion (225 G)) 0 gm EXT BID [facility] Last Admin: 03/25/18 12:15 Dose: 1 applic Methylphenidate HCl (Ritalin) 5 mg PO DAILY [facility] Last Admin: 03/25/18 12:14 Dose: 5 mg Pantoprazole Sodium (Protonix Susp) 40 mg PO 0600,1600 TETO Last Admin: 03/25/18 06:00 Dose: 40 mg Rosuvastatin Calcium (Crestor) 10 mg PO HS [facility] Last Admin: 03/24/18 21:43 Dose: 10 mg Tamsulosin HCl (Flomax) 0.4 mg PO DAILY [facility] Last Admin: 03/25/18 12:14 Dose: 0.4 mg - Labs Labs: 03/25/18 08:19 03/25/18 08:19 PT 14.2 SECONDS (9.7-12.2) H 03/17/18 17:40 INR 1.3 03/17/18 17:40 APTT 30 SECONDS (21-34) 03/18/18 05:48 - Constitutional Appears: Non-toxic - Respiratory Exam Respiratory Exam: Clear to Ausculation Bilateral - Cardiovascular Exam Cardiovascular Exam: RRR - GI/Abdominal Exam GI & Abdominal Exam: Soft, Tenderness, Normal Bowel Sounds Additional comments: PEG- clear - Neurological Exam Neurological Exam: absent: Oriented x3 Assessment and Plan (1) BPH (benign prostatic hyperplasia) Status: Acute (2) Anemia Status: Acute (3) Dysphagia Assessment & Plan: s/p pEG Status: Acute (4) 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
--- NOTE | 2018-03-25 17:06 | CP.PCM.PN ---
Subjective - Date & Time of Evaluation Date of Evaluation: 03/25/18 Time of Evaluation: 11:00 - Subjective Subjective: lethargic, awake, tolerate feeding, NAD. Objective - Vital Signs/Intake and Output Vital Signs (last 24 hours): Temp Pulse Resp BP Pulse Ox 99.3 F 72 18 123/75 96 03/25/18 15:00 03/25/18 15:00 03/25/18 15:00 03/25/18 15:00 03/25/18 15:00 Intake and Output: 03/25/18 03/25/18 06:59 18:59 Output Total 400 300 Balance -400 -300 - Medications Medications: Current Medications Acetaminophen (Tylenol 650mg/20.3ml Solution Ud) 650 mg PO Q4H PRN Last Admin: 03/22/18 23:47 Dose: 650 mg Heparin Sodium (Porcine) (Heparin) 5,000 units SC Q12H [facility] Piperacillin Sod/Tazobactam (Sod 3.375 gm/ Sodium Chloride) 100 mls @ 200 mls/hr IVPB Q8H [facility]; Protocol Last Admin: 03/25/18 12:14 Dose: 200 mls/hr Insulin Human Regular (Novolin R) 0 unit SC Q6H [facility]; Protocol Last Admin: 03/25/18 12:08 Dose: Not Given Lactic Acid (Lac-Hydrin 12% Lotion (225 G)) 0 gm EXT BID [facility] Last Admin: 03/25/18 12:15 Dose: 1 applic Methylphenidate HCl (Ritalin) 5 mg PO DAILY [facility] Last Admin: 03/25/18 12:14 Dose: 5 mg Pantoprazole Sodium (Protonix Susp) 40 mg PO 0600,1600 [facility]ETO Last Admin: 03/25/18 06:00 Dose: 40 mg Rosuvastatin Calcium (Crestor) 10 mg PO HS [facility] Last Admin: 03/24/18 21:43 Dose: 10 mg Tamsulosin HCl (Flomax) 0.4 mg PO DAILY [facility] Last Admin: 03/25/18 12:14 Dose: 0.4 mg - Labs Labs: 03/25/18 08:19 03/25/18 08:19 PT 14.2 SECONDS (9.7-12.2) H 03/17/18 17:40 INR 1.3 03/17/18 17:40 APTT 30 SECONDS (21-34) 03/18/18 05:48 Assessment and Plan - Assessment and Plan (Free Text) Assessment: Patient s/p PEG, tolerating feeds. Awake, responsive, tolerating PEG feeding well, no acute distress noted. Discussed with DR Aponte , plan to discharge to rehab when bed available. Family is made aware.
--- NOTE | 2018-03-25 22:47 | CP.PCM.PN ---
Subjective - Subjective Subjective: dictated Objective - Vital Signs/Intake and Output Vital Signs (last 24 hours): Temp Pulse Resp BP Pulse Ox 99.3 F 72 18 123/75 96 03/25/18 15:00 03/25/18 15:00 03/25/18 15:00 03/25/18 15:00 03/25/18 15:00 Intake and Output: 03/25/18 03/26/18 18:59 06:59 Output Total 300 Balance -300 - Medications Medications: Current Medications Acetaminophen (Tylenol 650mg/20.3ml Solution Ud) 650 mg PO Q4H PRN Last Admin: 03/22/18 23:47 Dose: 650 mg Heparin Sodium (Porcine) (Heparin) 5,000 units SC Q12H TETO Insulin Human Regular (Novolin R) 0 unit SC Q6H TETO; Protocol Last Admin: 03/25/18 18:25 Dose: Not Given Lactic Acid (Lac-Hydrin 12% Lotion (225 G)) 0 gm EXT BID TETO Last Admin: 03/25/18 18:25 Dose: 1 applic Methylphenidate HCl (Ritalin) 5 mg PO DAILY TETO Last Admin: 03/25/18 12:14 Dose: 5 mg Pantoprazole Sodium (Protonix Susp) 40 mg PO 0600,1600 TETO Last Admin: 03/25/18 18:23 Dose: 40 mg Rosuvastatin Calcium (Crestor) 10 mg PO HS TETO Last Admin: 03/25/18 22:32 Dose: 10 mg Tamsulosin HCl (Flomax) 0.4 mg PO DAILY TETO Last Admin: 03/25/18 12:14 Dose: 0.4 mg - Labs Labs: 03/25/18 08:19 03/25/18 08:19 PT 14.2 SECONDS (9.7-12.2) H 03/17/18 17:40 INR 1.3 03/17/18 17:40 APTT 30 SECONDS (21-34) 03/18/18 05:48
--- NOTE | 2018-03-25 22:55 | CP.PCM.PN ---
Subjective - Date & Time of Evaluation Date of Evaluation: 03/25/18 Time of Evaluation: 08:30 - Subjective Subjective: Patient seen and evaluated No cardiac events noted Objective - Vital Signs/Intake and Output Vital Signs (last 24 hours): Temp Pulse Resp BP Pulse Ox 99.3 F 72 18 123/75 96 03/25/18 15:00 03/25/18 15:00 03/25/18 15:00 03/25/18 15:00 03/25/18 15:00 Intake and Output: 03/25/18 03/26/18 18:59 06:59 Output Total 300 Balance -300 - Medications Medications: Current Medications Acetaminophen (Tylenol 650mg/20.3ml Solution Ud) 650 mg PO Q4H PRN Last Admin: 03/22/18 23:47 Dose: 650 mg Heparin Sodium (Porcine) (Heparin) 5,000 units SC Q12H TETO Insulin Human Regular (Novolin R) 0 unit SC Q6H TETO; Protocol Last Admin: 03/25/18 18:25 Dose: Not Given Lactic Acid (Lac-Hydrin 12% Lotion (225 G)) 0 gm EXT BID TETO Last Admin: 03/25/18 18:25 Dose: 1 applic Methylphenidate HCl (Ritalin) 5 mg PO DAILY TETO Last Admin: 03/25/18 12:14 Dose: 5 mg Pantoprazole Sodium (Protonix Susp) 40 mg PO 0600,1600 TETO Last Admin: 03/25/18 18:23 Dose: 40 mg Rosuvastatin Calcium (Crestor) 10 mg PO HS TETO Last Admin: 03/25/18 22:32 Dose: 10 mg Tamsulosin HCl (Flomax) 0.4 mg PO DAILY TETO Last Admin: 03/25/18 12:14 Dose: 0.4 mg - Labs Labs: 03/25/18 08:19 03/25/18 08:19 PT 14.2 SECONDS (9.7-12.2) H 03/17/18 17:40 INR 1.3 03/17/18 17:40 APTT 30 SECONDS (21-34) 03/18/18 05:48
[2018-03-26] MEDS: (Novolin R) Insulin Human Regular 100 units/ml vial SC SCH ×3 (00:10→13:11)
[2018-03-26 01:24] VITALS: RESP 20
--- NOTE | 2018-03-26 04:19 | PN ---
DATE: 03/25/2018 SUBJECTIVE: Jonas Srivastava has a PEG and he is being fed by PEG. He is on physiotherapy. He is weak. He is in the bed. No fever, no chills. He has a headache. PHYSICAL EXAMINATION: VITAL SIGNS: Blood pressure 123/80, pulse 72, respiratory rate 18, temperature 99.3. LUNGS: Clear. CARDIOVASCULAR SYSTEM: S1, S2, regular. ABDOMEN: PEG site is clean, soft, nontender. EXTREMITIES: Left side power is weak. ASSESSMENT: 1. 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 2. Hypertension. 3. Benign prosthetic hypertrophy. PLAN: Physical therapy. Subacute rehab. Monitor the patient. Wild Aponte MD
[2018-03-26] MEDS: Pantoprazole 40 mg Susp UD PO SCH (06:09)
[2018-03-26 08:18] VITALS: BP 145/94; PULSE 72; TEMP 97.9; O2SAT 94
[2018-03-26 08:41] LABS: BASO % 0.3 % (0.0-2.0); EOS # 0.1 K/uL (0.0-0.7); EOS % 0.9 % (0.0-4.0); HEMOGLOBIN 12.6 g/dL (12.0-18.0); LYMPH # 1.6 K/uL (1.0-4.3); LYMPH % 22.6 % (20.0-40.0); MEAN CORPUSCULAR HEMOGLOBIN 32.4 pg (27.0-31.0); MEAN CORPUSCULAR HGB CONC 33.3 g/dL (33.0-37.0); MEAN PLATELET VOLUME 9.3 fL (7.2-11.7); MONO # 0.5 K/uL (0.0-0.8); MONO % 6.3 % (0.0-10.0); NEUT % 69.9 % (50.0-75.0); NRBC % 0.1 % (0.0-2.0); RBC 3.89 Mil/uL (4.40-5.90); RED CELL DISTRIBUTION WIDTH 15.2 % (11.5-14.5); WHITE BLOOD COUNT 7.2 K/uL (4.8-10.8)
[2018-03-26 08:43] LABS: MEAN CELL VOLUME 97.4 fL (80.0-94.0)
[2018-03-26 08:55] LABS: ALBUMIN 2.8 g/dL (3.5-5.0); ALT/SGPT 25 U/L (21-72); AST/SGOT 21 U/L (17-59); BLOOD UREA NITROGEN 30 mg/dL (9-20); CALCIUM 8.6 mg/dl (8.6-10.4); GFR NON-AFRICAN AMERICAN > 60
[2018-03-26] MEDS: Ammonium Lactate 12% Lotion (225 g) EXT SCH (10:40)
[2018-03-26] MEDS ORDERED: Metoprolol Succinate 12.5 mg XL Tab PO SCH (18:00)
--- NOTE | 2018-03-26 20:16 | CP.PCM.DIS ---
Provider - Provider Date of Admission: 03/17/18 17:59 Attending physician: Wild Aponte MD Consults: 03/17/18 17:19 Stroke Team Consult Stat Comment: bed5 Consulting Provider: Neurohospitalist Consulting Physician: NEUROHOSP Neurohospitalist for Consult: Rafael Lozada Neurohospitalist for Consult: Tim Henley Reason for Consult: code stroke 03/18/18 08:00 Case Management Referral Routine Comment: Physician Instructions: Reason For Exam: code stroke Reason for Referral: Discharge Planning Nursing Referral for Palliative Care Routine Comment: Physician Instructions: Reason For Exam: code stroke Nursing Referral for Wound Care Routine Comment: right leg more red adn swollen than left Physician Instructions: Reason For Exam: adolfo discoloration both legs Social Work Referral Routine Comment: blayblock score Physician Instructions: Reason For Exam: discharge planning 03/19/18 07:04 Cardiology Consult Routine Comment: Consulting Provider: Romulo Myers Consulting Physician: Romulo Myers Reason for Consult: Atrial Fibrillation 03/23/18 09:01 Gastroenterology Consult Routine Comment: Consulting Provider: Isma Drake Consulting Physician: Isam Drake Reason for Consult: PEG Hospital Course - Lab Results Lab Results: Micro Results 03/24/18 00:37 Nose MRSA Culture - Final MRSA DETECTED 03/21/18 Unknown Urine,Catheterized Urine Culture - Final No Growth (<1,000 CFU/ML) 03/17/18 08:18 Naris MRSA Culture (Admit) - Final Most Recent Lab Values WBC 7.2 K/uL (4.8-10.8) 03/26/18 08:29 RBC 3.89 Mil/uL (4.40-5.90) L 03/26/18 08:29 Hgb 12.6 g/dL (12.0-18.0) 03/26/18 08:29 Hct 37.8 % (35.0-51.0) 03/26/18 08:29 MCV 97.4 fL (80.0-94.0) H D 03/26/18 08:29 MCH 32.4 pg (27.0-31.0) H 03/26/18 08:29 MCHC 33.3 g/dL (33.0-37.0) 03/26/18 08:29 RDW 15.2 % (11.5-14.5) H 03/26/18 08:29 Plt Count 259 K/uL (130-400) 03/26/18 08:29 MPV 9.3 fL (7.2-11.7) 03/26/18 08:29 Neut % (Auto) 69.9 % (50.0-75.0) 03/26/18 08:29 Lymph % (Auto) 22.6 % (20.0-40.0) 03/26/18 08:29 [place] % (Auto) 6.3 % (0.0-10.0) 03/26/18 08:29 Eos % (Auto) 0.9 % (0.0-4.0) 03/26/18 08:29 Baso % (Auto) 0.3 % (0.0-2.0) 03/26/18 08:29 Neut # (Auto) 5.0 K/uL (1.8-7.0) 03/26/18 08:29 Lymph # (Auto) 1.6 K/uL (1.0-4.3) 03/26/18 08:29 [place]hing # (Auto) 0.5 K/uL (0.0-0.8) 03/26/18 08:29 Eos # (Auto) 0.1 K/uL (0.0-0.7) 03/26/18 08:29 Baso # (Auto) 0.0 K/uL (0.0-0.2) 03/26/18 08:29 PT 14.2 SECONDS (9.7-12.2) H 03/17/18 17:40 INR 1.3 03/17/18 17:40 APTT 30 SECONDS (21-34) 03/18/18 05:48 Sodium 149 mmol/L (132-148) H 03/26/18 08:29 Potassium 3.7 mmol/L (3.6-5.2) 03/26/18 08:29 Chloride 115 mmol/L (98-107) H 03/26/18 08:29 Carbon Dioxide 27 mmol/L (22-30) 03/26/18 08:29 Anion Gap 11 (10-20) 03/26/18 08:29 BUN 30 mg/dL (9-20) H 03/26/18 08:29 Creatinine 0.8 mg/dL (0.8-1.5) 03/26/18 08:29 Est GFR ( Amer) > 60 03/26/18 08:29 Est GFR (Non-Af Amer) > 60 03/26/18 08:29 POC Glucose (mg/dL) 141 mg/dL (65-110) H 03/26/18 06:36 Random Glucose 146 mg/dL (75-110) H 03/26/18 08:29 Hemoglobin A1c 5.9 % (4.2-6.5) 03/17/18 17:40 Calcium 8.6 mg/dl (8.6-10.4) 03/26/18 08:29 Phosphorus 3.3 mg/dL (2.5-4.5) 03/26/18 08:29 Magnesium 2.5 mg/dL (1.6-2.3) H 03/26/18 08:29 Total Bilirubin 0.7 mg/dL (0.2-1.3) 03/26/18 08:29 AST 21 U/L (17-59) 03/26/18 08:29 ALT 25 U/L (21-72) 03/26/18 08:29 Alkaline Phosphatase 70 U/L (38-126) 03/26/18 08:29 Troponin I 0.0480 ng/mL (0.00-0.120) 03/17/18 17:40 Total Protein 5.7 g/dL (6.3-8.3) L 03/26/18 08:29 Albumin 2.8 g/dL (3.5-5.0) L 03/26/18 08:29 Globulin 2.9 gm/dL (2.2-3.9) 03/26/18 08:29 Albumin/Globulin Ratio 1.0 (1.0-2.1) 03/26/18 08:29 Triglycerides 88 mg/dL (0-149) 03/17/18 17:40 Cholesterol 187 mg/dL (0-199) 03/17/18 17:40 LDL Cholesterol Direct 88 mg/dL (0-129) 03/17/18 17:40 HDL Cholesterol 78 mg/dL (30-70) H 03/17/18 17:40 Urine Color Yellow (YELLOW) 03/21/18 19:25 Urine Clarity Clear (Clear) 03/21/18 19:25 Urine pH 5.0 (5.0-8.0) 03/21/18 19:25 Ur Specific [place] 1.026 (1.003-1.030) 03/21/18 19:25 Urine Protein 1+ mg/dL (NEGATIVE) H 03/21/18 19:25 Urine Glucose (UA) Normal mg/dL (Normal) 03/21/18 19:25 Urine Ketones 2+ mg/dL (NEGATIVE) H 03/21/18 19:25 Urine Blood 1+ (NEGATIVE) H 03/21/18 19:25 Urine Nitrate Negative (NEGATIVE) 03/21/18 19:25 Urine Bilirubin Negative (NEGATIVE) 03/21/18 19:25 Urine Urobilinogen 2.0 mg/dL (0.2-1.0) 03/21/18 19:25 Ur Leukocyte Esterase Neg [place]/uL (Negative) 03/21/18 19:25 Urine WBC (Auto) 3 /hpf (0-5) 03/21/18 19:25 Urine RBC (Auto) 26 /hpf (0-3) H 03/21/18 19:25 Blood Type A POSITIVE 03/17/18 17:54 Antibody Screen Negative 03/17/18 17:54 Discharge Exam - Head Exam Head Exam: ATRAUMATIC, NORMAL INSPECTION, NORMOCEPHALIC Discharge Plan - Follow Up Plan Condition: GOOD Disposition: REHAB FACILITY/REHAB UNIT Instructions: Stroke, Caring for a Loved One After a Stroke, Stroke Rehab Information Additional Instructions: Patient remains NPO. Patient started on Eliquis and to receive first dose today. Referrals: Romulo Myers MD [Staff Provider] - Tim Henley MD [Staff Provider] - Isma Drake MD [Staff Provider] -
== END 2018-03-26 14:33 | DRG 24 ==
LOC: C.ER 17:16 → MERGE 17:59 → C.9I 17:59 → C.5S 03-24 15:15
PROVIDERS: ADMIT Internal Medicine; ATTEND Internal Medicine
PROC: 03CG3ZZ Extirpation of Matter from Intracranial Artery, Percutaneous Approach (ICD-10-PCS; principal; 2018-03-17)
PROC: B31R1ZZ Fluoroscopy of Intracranial Arteries using Low Osmolar Contrast (ICD-10-PCS; 2018-03-17)
PROC: 0DH63UZ Insertion of Feeding Device into Stomach, Percutaneous Approach (ICD-10-PCS; 2018-03-24)
PROC: 3E0G76Z Introduction of Nutritional Substance into Upper GI, Via Natural or Artificial Opening (ICD-10-PCS; 2018-03-24)
DX: I63.341 Cerebral infarction due to thrombosis of right cerebellar artery (principal); G81.94 Hemiplegia, unspecified affecting left nondominant side; N13.8 Other obstructive and reflux uropathy; N39.0 Urinary tract infection, site not specified; I10 Essential (primary) hypertension; I48.91 Unspecified atrial fibrillation; N40.1 Benign prostatic hyperplasia with lower urinary tract symptoms; Z86.718 Personal history of other venous thrombosis and embolism; E87.6 Hypokalemia; E11.51 Type 2 diabetes mellitus with diabetic peripheral angiopathy without gangrene; E11.65 Type 2 diabetes mellitus with hyperglycemia; E83.39 Other disorders of phosphorus metabolism; E83.51 Hypocalcemia; I27.20 Pulmonary hypertension, unspecified; Z79.01 Long term (current) use of anticoagulants; R13.10 Dysphagia, unspecified